=== PATIENT | female | born 1960 | race Caucasian/White ===

== ENCOUNTER 2017-09-17 17:22 | Inpatient (IN) | payer MEDICARE ==
[~2017-09-17] VITALS: Ht 165.1 cm; Wt 156.0 kg
--- NOTE | ~2017-09-17 | PROC ---
[address] [address] PROCEDURE REPORT Name: SAMI MARCELO Room: [address] IN .R.#: [id number] Admission: 09/17/17 Attend Phys: Fide Palma Discharge: Date of : 56 Report #: [id number] THIS REPORT FOR: //name// See perceptive 7 content for GI report. By: [id number] Records Staff JESSE /STACEY
[~2017-09-17 17:22] MED LIST: ACCUNEB SO1.25 MG/1 INH; ACCUNEB0.63 MG/3 IH; ALBUTEROL INH; ALBUTEROL2.5 MG/3 M INH; ALTACE5 M1 PO; ASPIRIN325 PO; ATIVAN1 MG PO; CARVEDILOL3.125 MG PO; CENTRUM SILVER1 EAC4 PO; CIPRO250 M1 PO; COLCHICINE0.6 MG PO; COUMADIN 4 MG TA4 M1 PO; DIFICID200 MG PO; DILAUDID2 MG; DILTIAZEM 24HR240 MG PO; DILTIAZEM ER180 M1 PO; DILTIAZEM ER240 M1 PO; DOXYCYCLINE 10100 M1 PO; DOXYCYCLINE 10100 MG PO; EFFEXOR XR75 MG PO; ELIQUIS5 MG PO; ESTRACE0.5 MG PO; ESTRACE1 MG PO; FAMCYCLOVIR 50500 M1 PO; FLEXERIL PO; FLOVENT HFA 1110 MCG INH; FUROSEMIDE 40 M40 MG PO; HYDROCODON-ACE1 EAC5 PO; K-DUR 20 MEQ T20 MEQ PO; LANOXIN 0.120.125 M1 PO; LANOXIN 0.250.25 M1 PO; LASIX 20 MG TAB20 MG PO; LASIX 40 MG TAB40 M1 PO; LASIX 40 MG TAB40 M2 PO; LEVAQUIN PO; LEVSIN0.125 MG PO; LIDOCAINE 22 %/30 GM TOP; LIDOCAINE35.44 GM TOP; LIDODERM 5%1 PATC1 TRANSDERM; LOPERAMIDE 2 MG2 M1 PO; METHADONE HCL5 MG PO; METOLAZONE 5 MG5 M1 PO; METOLAZONE 5 MG5 MG PO; METOLAZONE10 MG PO; MINOCIN100 MG PO; MIRALAX17 GM PO; MUCINEX DM TABL1 TA1 PO; MUCINEX TA600 MG/TA2 PO; MUCINEX600 MG PO; MULTIGEN CAPLET1 CAP PO; MULTIVITAMINS PO; MULTIVITAMINS1 EAC7 PO; NORCO 10-325 T1 EACH PO; NYSTATIN 100,0015 G1; NYSTATIN 1100000 U/M SW&SWALLOW; NYSTATIN-TRIAMC15 GM TOP; NYSTATIN1 EA10 TOP; NYSTATIN1 EAC9; OMEPRAZOLE20 MG PO; ONDANSETRON HCL4 M2 PO; OXYCONTIN10 M1 PO; OXYCONTIN60 MG PO; PACERONE 200 M200 M1 PO; PAXIL10 MG; PERCOCET 10-321 EACH PO; PERCOCET 5-3251 EACH; PERCOCET PO; POTASSIUM20 PO; PREDNISONE 10 M10 MG PO; PREDNISONE 20 M20 M1 PO; PREDNISONE 20 M20 MG PO; PRILOSEC40 MG PO; PROAIR HFA8.5 GM INH; PROBIOTIC250 MG PO; PSYLLIUM PO; QVAR HFA 440 MCG/UN1 INH; QVAR HFA 880 MCG/UN1 INH; QVAR8.7 G1 INH; RESTORIL15 MG PO; RESTORIL7.5 MG PO; ROXICODONE5 M2 PO; ROXICODONE5 MG PO; SIMVASTATIN40 MG PO; SINGULAIR 10 MG10 M1 PO; SOTALOL 120 MG120 M1 PO; SPIRIVA INH; SYMBICORT160 MCG/4. INH; TIKOSYN.25 PO; TRAMADOL 50 MG50 MG PO; TRANSDERM-SCO1 PATCH TD; TRINATE TABLET1 TAB PO; VANCOMYCIN HCL 11 G2 IV; VANCOMYCIN HCL250 MG PO; VENTOLIN HFA 1818 GM INH; VICODIN 5-5001 EACH PO; VICODIN PO; VITAMIN D 5050000 I1 PO; VIVELLE-DOT1 EAC1 TOP; VIVELLE1 EAC1 TRANSDERM; XARELTO20 MG PO; XOPENEX 1.25 MG/3 M1 IH; XOPENEX CO1.25 MG/0. INH; XOPENEX0.63 MG/3 IH; XOPENEX1.25 MG/3 INH; XYLOCAINE TOP; ZOFRAN ODT4 MG PO; ZYRTEC 10 MG TA10 MG PO; ZYRTEC10 M2 PO; ZYRTEC10 M4 PO; [UNRECOGNIZED DRUG - OTHER] TRANSDERM
--- NOTE | 2017-09-17 17:50 | NUR ---
Jenny MCKEON AT BEDSIDE TO DRAW ABG.
[2017-09-17 17:51] LABS: HEMATOCRIT 42.1 % (37.0-47.0); HEMOGLOBIN 13.1 gm/dL (12.0-15.0); MCH 25.7 pg (26.0-34.0); MCV 82.7 fL (80.0-100.0); NUCLEATED RBCS 0 /100WBC; PLATELET COUNT* 276 thou/uL (150-400); RBC 5.09 mil/uL (4.20-5.00); WBC 25.5 thou/uL (4.0-11.0)
[2017-09-17 17:55] LABS: BE -3.8 mmol/L (-2 to +3); HCO3 20.4 mmol/L (22.0-26.0); PCO2 34.6 mmHg (35.0-45.0); PO2 91.3 mmHg (75.0-100.0); pH 7.388 (7.340-7.450)
[2017-09-17 17:59] LABS: INR 1.2; PROTIME 11.8 Seconds (9.20-11.50)
[2017-09-17 18:13] LABS: CALCIUM 8.3 mg/dL (8.5-10.1); CREATININE 3.3 mg/dL (0.6-1.3); POTASSIUM 4.4 mmol/L (3.5-5.1)
[2017-09-17 18:19] LABS: ACETAMINOPHEN 5 ug/mL (10-30); ALCOHOL < 10 mg/dL (<10); SALICYLATE < 2.8 mg/dL (2.8-20.0)
--- NOTE | 2017-09-17 18:20 | NUR ---
R.TBrian AT BEDSIDE FOR NEBULIZER TREATMENT
[2017-09-17 18:23] LABS: ABSOLUTE EOSINOPHILS 0.5 thou/uL (0.0-0.7); ABSOLUTE LYMPHOCYTES 0.8 thou/uL (0.8-5.3); ABSOLUTE MONOCYTES 0.5 thou/uL (0.0-1.2); ABSOLUTE NEUTROPHILS 23.7 thou/uL (1.6-8.1); ALBUMIN 2.8 g/dL (3.4-5.0); TOTAL BILIRUBIN 1.1 mg/dL (<0.1-1.0); TOTAL PROTEIN 6.2 g/dL (6.4-8.2)
[2017-09-17 18:24] LABS: PLATELET ESTIMATE ADEQUATE
[2017-09-17 18:25] LABS: TROPONIN-I LEVEL 3.44 ng/mL (<0.06)
[2017-09-17 19:39] VITALS: BP 119/54
[2017-09-17 20:00] VITALS: BP 117/78
[2017-09-17 20:01] LABS: URINE BLOOD NEGATIVE (Negative); URINE COLOR YELLOW; URINE GLUCOSE-RANDOM NEGATIVE (Negative); URINE KETONES TRACE (Negative); URINE LEUKOCYTES-REFLEX 1+ (Negative); URINE NITRITE-REFLEX NEGATIVE (Negative); URINE PROTEIN 2+ (Negative); URINE SPECIFIC GRAVITY >= 1.030 (1.005-1.030); URINE UROBILINOGEN 0.2 E.U./dl (0.2-1.0)
[2017-09-17 20:02] LABS: ICTOTEST (BILI CONFIRMATORY) Negative (Negative); URINE BILIRUBIN 1+ (Negative); URINE CLARITY HAZY
[2017-09-17 20:03] LABS: AMORPHOUS URATES Few /LPF (None Seen); CASTS None Seen /LPF (None Seen); MUCUS 0-3 Light strn/LPF (None Seen); SQUAMOUS >10 Many /LPF (0-3); URINE RBC None Seen /HPF (0-2); URINE WBC-REFLEX 0-5 Rare /HPF (0-5)
[2017-09-17 20:10] LABS: AMP/METHAMP Negative (Negative); BARBITURATES Negative (Negative); BENZODIAZEPINES Negative (Negative); COCAINE Negative (Negative); METHADONE Negative (Negative); OPIATES POSITIVE (Negative); PCP Negative (Negative); THC Negative (Negative)
[2017-09-17 20:16] LABS: MAGNESIUM 1.5 mg/dL (1.8-2.4); PHOSPHORUS* 5.2 mg/dL (2.5-4.9)
[2017-09-17 21:00] VITALS: BP 126/75
[2017-09-17 22:00] VITALS: BP 126/58
--- NOTE | 2017-09-17 22:00 | NUR ---
PT. ADMITTED TO BED 7 AT 1930, DIAGNOSIS SEPSIS/CELLULITIS. PT. RESTLESS. SEE FULL ASSESSMENT. 3L O2 ON ADMISSION. RIGHT CHEST PORT A CATH. V-PACED. INFORMATION OBTAINED FROM SPOUSE. WILL CONTINUE TO MONITOR.
[2017-09-17 23:00] VITALS: BP 100/54
[2017-09-18] VITALS (18 sets, daily range): BP systolic 94–146; BP diastolic 33–80
[2017-09-18 04:18] LABS: HEMATOCRIT 36.8 % (37.0-47.0); HEMOGLOBIN 11.2 gm/dL (12.0-15.0); MCH 25.5 pg (26.0-34.0); MCHC 30.5 g/dL (28.0-37.0); MCV 83.6 fL (80.0-100.0); RBC 4.4 mil/uL (4.20-5.00); RDW-CV 17.2 % (10.5-14.5); WBC 22.7 thou/uL (4.0-11.0)
--- NOTE | 2017-09-18 04:52 | NUR ---
PT. HAS BEEN RESTLESS THROUGHOUT THE NIGHT, PULLING OFF LEADS, SALOMON NEEDLE BENT DUE TO PT. PULLING, RESTLESS. PT. PULLING ON SANCHEZ CATHETER. ORDER FOR RESTRAINTS OBTAINED, SOFT WRIST BILAT RESTRAINTS APPLIED. PT. IS ORIENTED TO PERSON, PLACE, SITUATION. 2L O2. V-PACED. OLIGURIA. WILL CONTINUE TO MONITOR.
[2017-09-18 07:54] LABS: ABSOLUTE BASOPHILS 0.1 thou/uL (0.0-0.2); ABSOLUTE EOSINOPHILS 0.1 thou/uL (0.0-0.7); ABSOLUTE LYMPHOCYTES 0.7 thou/uL (0.8-5.3); ABSOLUTE MONOCYTES 0.6 thou/uL (0.0-1.2); ABSOLUTE NEUTROPHILS 18.3 thou/uL (1.6-8.1); BASOPHILS 0.5 %; EOSINOPHILS 0.6 %; HEMATOCRIT 35.8 % (37.0-47.0); HEMOGLOBIN 11.1 gm/dL (12.0-15.0); LYMPHOCYTES 3.7 %; MCH 25.6 pg (26.0-34.0); MCHC 31.1 g/dL (28.0-37.0); MCV 82.6 fL (80.0-100.0); MONOCYTES 2.9 %; MPV 7.6 fl. (7.2-11.1); NUCLEATED RBCS 0 /100WBC; PLATELET COUNT* 216 thou/uL (150-400); POLYS 92.3 %; RBC 4.34 mil/uL (4.20-5.00); RDW-CV 17.2 % (10.5-14.5); WBC 19.8 thou/uL (4.0-11.0)
[2017-09-18 08:13] LABS: BE -4.1 mmol/L (-2 to +3); HCO3 20.2 mmol/L (22.0-26.0); PCO2 34.6 mmHg (35.0-45.0); PO2 87.8 mmHg (75.0-100.0); pH 7.384 (7.340-7.450)
--- NOTE | 2017-09-18 08:25 | NUR ---
VANCOMYCIN PHARMACY TO MANAGE: PATIENT IS BEING TREATED FOR CELLULITIS AND SEPSIS. VE=942.6 KG, WBC=19.8, SCR=3.3, ADJUSTED CRCL= 29.5, TEMP= 37.6. PATIENT RECEIVED VANCOMYCIN 1.25 G IV ONETIME FROM ID 09/17. A MAINTENANCE DOSE WILL BEGIN TODAY OF VANCOMYCIN 500 MG IV Q12H WITH A TROUGH GOAL OF 15-20 MCG/ML. A TROUGH WAS ORDERED FOR 09/19 AT 0900. PHARMACY WILL CONTINUE TO FOLLOW AND MONITOR.
[2017-09-18 08:48] LABS: CHOLESTEROL 75 mg/dL (<200); DIRECT BILIRUBIN 0.8 mg/dL (<0.1-0.3); HDL CHOLESTEROL 17 mg/dL (>40); LDL CHOLESTEROL 7 mg/dL (<100); SERUM ASSESSMENT Clear; TC:HDL 4.4 Ratio (Not establshd); TOTAL BILIRUBIN 1.5 mg/dL (<0.1-1.0); TRIGLYCERIDE 255 mg/dL (<150); VLDL 51 mg/dL (<40)
--- NOTE | 2017-09-18 11:31 | CON ---
[address] [address] CONSULTATION Name: SAMI MARCELO Room: [address] IN M.R.#: [id number] Admission: 09/17/17 Attend Phys: Fide Palma Discharge: Date of : 56 Report #: [id number] THIS REPORT FOR: //name// CC: MARYANA physician/PCP Seth Reveles DATE OF SERVICE: 09/18/2017 INFECTIOUS DISEASE CONSULTATION ATTENDING PHYSICIAN: Bin Shelton M.D. REASON FOR EVALUATION: Sepsis, left lower extremity cellulitis and profound encephalopathy. HISTORY OF PRESENT ILLNESS: Chart reviewed, the patient examined. This is a 56-year-old woman, who I am well familiar with, who has had extensive medical history including some unclear diagnosis, perhaps Familial Mediterranean Fever, who has ongoing issues with inflammatory eruptions, often with the lower extremities and chronic abdominal-related pain, who I had not seen in several months. She was apparently noting, over the course of last 24-48 hours, progressive weakness including falling, complaining of left lower extremity pain and swelling. She has not had nausea or emesis, was found to have low-grade temperature elevations on admission. Imaging was otherwise unremarkable. Lactic acidemia of 7.6, repeat more recently was 4.3. She is unable to give any history. She, in fact, does not recognize me, which is quite unusual. She is moaning. It is not clear that she has any orientation at all. She is not overtly hemodynamically unstable at this point. She has been started empirically on combination therapy with ceftriaxone and vancomycin, both IV and oral. ALLERGIES: LISTED TO PENICILLIN, SULFA, GABAPENTIN AND PROMETHAZINE. CURRENT MEDICATIONS: Include hydrocortisone, aspirin, Ipratropium/albuterol inhaler, vancomycin, hyoscyamine, ergocalciferol, apixaban, Montelukast, ceftriaxone, fentanyl, vancomycin orally, pantoprazole and hydrocodone. 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 SOCIAL HISTORY: Nonsmoker, no ethanol. FAMILY HISTORY: [place] [address] CONSULTATION Name: SAMI MARCELO Room: [address]#: [id number] Admission: 09/17/17 Attend Phys: Fide Palma Discharge: Date of : 56 Report #: [id number] REVIEW OF SYSTEMS: As above. PHYSICAL EXAMINATION: GENERAL: She is markedly distressed. She is moaning. She is not able to be redirected, not clear if she recognizes me. VITAL SIGNS: Temperature 99.2, pulse 70, respirations 18 and blood pressure 124/52. Weight is 365 pounds. SKIN: Warm, multiple areas of contused and scarring, particularly of the lower extremities. NECK: Seemingly supple. LUNGS: She is tachypneic. Diminished breath sounds overall. HEART: Regular, soft systolic murmur. ABDOMEN: Soft. There are no overt peritoneal signs. Left lower extremity has moderate inflammatory changes noted distal below the knee. It is warm to touch, relative to the right side. GENITOURINARY: Deferred. RECTAL: Deferred. LABORATORY DATA: TSH of 3.056. of 663. Total bilirubin 1.5 with a direct of 0.5. Blood cultures sterile thus far. ABGs: pH of 7.384, pCO2 of 34.6 and pO2 of 87.8 on 2 liters. Lactic acid most recently is 4.3. CBC: White count of 19.8, initially was 25.5; H and H 11.1 and 35.8 and platelets of 216,000. Drug screen was positive for opiates and I think these are prescribed. Urinalysis 0-5 white cells. Chest x-ray: Mild medial basilar atelectasis. CT abdomen and pelvis, no evident inflammatory process, change in the central uterus and possible right adnexal cysts. CT of the head, no acute abnormalities. Estimated GFR of 14. Sodium 138, potassium 4.4, chloride 98, bicarbonate is 23, anion gap of 17 and BUN and creatinine 23 and 3.3. Albumin 2.8. Total protein 6.2. ASSESSMENT AND PLAN: Left lower extremity inflammatory eruptions with clinical multiorgan dysfunction including profound encephalopathy as well as renal dysfunction. We will continue empiric antimicrobial therapy. I would presume there is a component of infectious etiology at this point, leukocytosis or low-grade temperature elevations. Certainly, she remains tenuous. Continue to monitor expectantly. <ELECTRONICALLY SIGNED> By: Jorge Leyv MD 09/18/17 1131 1001 [id number] Levy MD /nt
[2017-09-18 11:40] LABS: CALCIUM 7.5 mg/dL (8.5-10.1); POTASSIUM 4.5 mmol/L (3.5-5.1)
[2017-09-18 11:43] LABS: CREATININE 4.4 mg/dL (0.6-1.3)
--- NOTE | 2017-09-18 11:58 | NUR ---
Per nurse, Pt has been agitated today, last evening Pt was in restraints d/t pulling at her lines. Nurse asked that CM assess Pt later. Per nurse, Pt is non ambulatory, wc bound. Resides at home with her . CM to assess later.
[2017-09-18 12:30] LABS: CALCIUM 7.3 mg/dL (8.5-10.1); CREATININE 4.6 mg/dL (0.6-1.3); POTASSIUM 4.6 mmol/L (3.5-5.1)
--- NOTE | 2017-09-18 14:26 | 2DMMODE ---
[place] [address] 2 D/M-MODE ECHOCARDIOGRAM Name: SAMI MARCELO Room: [address] ADM IN [facility]#: [id number] Admission: 09/17/17 Attend Phys: Seth Reveles Discharge: Date of : 56 Date of Service: 09/18/17 1426 Report #: [id number] THIS REPORT FOR: //name// APPROVED REPORT Study performed: 09/18/2017 10:06:21 EXAM: Comprehensive 2D, Doppler, and color-flow Echocardiogram Patient Location: In-Patient Room #: [facility] Status: routine BSA: 2.55 HR: 70 bpm BP: 124/52 mmHg Rhythm: NSR Other Information Study Quality: Good Indications Sepsis Elevated Troponin 2D Dimensions LVEF(%): 72.98 (>50%) IVSd: 11.95 (7-11mm) LVOT Diam: 19.85 (18-24mm) LVDd: 55.84 mm PWd: 11.21 (7-11mm) Ascending Ao: 35.13 (22-36mm) LVDs: 32.09 (25-40mm) Aortic Root: 32.96 mm Hess's LVEF: 72.98 % Volumes Left Atrial Volume (Systole) LA ESV Index: 26.30 mL/m2 Aortic Valve AoV Peak Capo.: 2.54 m/s AO Peak Gr.: 25.73 mmHg LVOT Max P.04 mmHg AO Mean Gr.: 15.16 mmHg LVOT Mean P.79 mmHg LVOT Max V: 1.50 m/s AO V2 VTI: 35.96 cm LVOT Mean V: 1.02 m/s CARMEN (VTI): 1.79 cm2 LVOT V1 VTI: 20.77 [place] [address] 2 D/M-MODE ECHOCARDIOGRAM Name: SAMI MARCELO Room: [address] IN ..#: [id number] Admission: 09/17/17 Attend Phys: Seth Reveles Discharge: Date of : 56 Date of Service: 09/18/17 1426 Report #: [id number] E/A Ratio: 2.97 MV Decel. Time: 295.33 ms MV E Max Capo.: 1.05 m/s MV PHT: 85.65 ms MVA (PHT): 2.57 cm2 TDI E/Lateral E': 9.55 E/Medial E': 10.50 Medial E' Capo.: 0.10 m/s Lateral E' Capo.: 0.11 m/s Pulmonary Valve PV Peak Capo.: 1.47 m/s PV Peak Gr.: 8.64 mmHg Tricuspid Valve TR Peak Gr.: 25.77 mmHg RVSP: 30.00 mmHg Left Ventricle The left ventricle is normal size. There is normal LV segmental wall motion. There is normal left ventricular wall thickness. Left ventricular systolic function is normal. The left ventricular ejection fraction is within the normal range. LVEF is 60%. This study is not technically sufficient to allow evaluation of the LV diastolic function. Right Ventricle The right ventricle is normal size. The right ventricular systolic function is normal. Pacemaker lead is present in the right ventricle. Atria The left atrium size is normal. The right atrium size is normal. Aortic Valve Mild aortic valve sclerosis. No aortic regurgitation is present. There is no aortic valvular stenosis. Mitral Valve The mitral valve is normal in structure. Trace mitral regurgitation. No evidence of mitral valve stenosis. Tricuspid Valve The tricuspid valve is normal in structure. Mild tricuspid regurgitation. The RVSP is 30-35 [place] [address] 2 D/M-MODE ECHOCARDIOGRAM Name: SAMI MARCELO Room: [address]#: [id number] Admission: 09/17/17 Attend Phys: Seth Reveles Discharge: Date of : 56 Date of Service: 09/18/17 1426 Report #: [id number] The pulmonary valve is normal in structure. There is no pulmonic valvular regurgitation. Great Vessels The aortic root is normal in size. IVC is normal in size and collapses with >50% inspiration Pericardium There is no pericardial effusion. <Conclusion> The left ventricle is normal size. There is normal left ventricular wall thickness. Left ventricular systolic function is normal. The left ventricular ejection fraction is within the normal range. LVEF is 60%. The right ventricle is normal size. The left atrium size is normal. Mild aortic valve sclerosis. No aortic regurgitation is present. There is no aortic valvular stenosis. The mitral valve is normal in structure. Trace mitral regurgitation. The tricuspid valve is normal in structure. Mild tricuspid regurgitation. The RVSP is 30-35 mmHg. IVC is normal in size and collapses with >50% inspiration There is no pericardial effusion. There is normal LV segmental wall motion. <ELECTRONICALLY SIGNED> By: Isreal Laboy MD, FACC 09/18/17 1426 1426 1426 Isreal Laboy MD, FACC /INF
--- NOTE | 2017-09-18 15:45 | NUR ---
WOUND CARE NOTE: CONSULT RECEIVED FOR CELLULITIS/OPEN WOUND ON LEFT LOWER EXTREMITY. PATIENT PRESENTS WITH WHAT APPEARS TO BE CELLULITIS TO THE LEFT LOWER LEG. CALF MEASURES 60CM. LEG IS EDEMATOUS, RED, AND ECCHYMOTIC. THERE IS AN OPEN WOUND TO THE MEDIAL LEFT LEG MEASURING 1X2.8X0.1. PARTIAL THICKNESS WOUND THAT IS PINK, MOIST. ECCHYMOSIS TO BANDAR-WOUND, MAY HAVE BEEN A BLISTER AT ONE POINT. WOUND CLEANSED WITH WOUND CLEANSER, PATTED DRY. APPLIED OPTIFOAM AG AND SECURED WITH ROLL GAUZE. PALPABLE PEDAL PULSES. PATIENT DOES HAVE PAIN UPON PALPATION TO THE LEFT LEG. RIGHT LEG APPEARS RED WITH ECCHYMOSIS TOO. CALF MEASURES 59CM, NO PAIN UPON PALPATION. PALPABLE PEDAL PULSES APPEARS TO HAVE RASH TO BILATERAL UPPER EXTREMITIES TOO. EDUCATED PATIENT'S ON DRESSING ORDERS, PATIENT UNABLE TO COMPREHEND AT THIS TIME, COMMUNICTED UNDERSTANDING. BARIATRIC BED ORDERED, PATIENT UNABLE TO TURN APPROPRIATELY. RECOMMEND ELEVATE BILATERAL HEELS OFF BED TURN Q2 HOURS ENCOURAGE GOOD NUTRITION/HYDRATION POSSIBLE COMPRESSION ONCE ABLE TO TOLERATE.
--- NOTE | 2017-09-18 18:43 | NUR ---
PT'S TEMPORARY DIALYSIS CATHETER INSERTED AT THE BEDSIDE. ORDER RECEIVED OK TO USE. DIALYSIS SCHEDULED FOR 2 HOURS TONIGHT AND THEN AGAIN FOR THE MORNING. PT'S VSS THROUGHOUT THE DAY. ASSESSMENT CHARTED. PT VERY RESTLESS THROUGHOUT THE DAY. SHE DID GET SOME REST LATE THIS AFTERNOON BUT OTHERWISE DIDN'T SLEEP MUCH TODAY. Q2H TURNS THROUGHOUT THE DAY. WOUND CARE NURSE VISITED AND DRESSED LLE. ORDERS IN CHART REGARDING WOUND CARE INSTRUCTIONS.
[2017-09-19] VITALS (12 sets, daily range): BP systolic 127–1158; BP diastolic 66–100
[2017-09-19 04:33] LABS: ABSOLUTE LYMPHOCYTES 0.3 thou/uL (0.8-5.3); ABSOLUTE MONOCYTES 0.6 thou/uL (0.0-1.2); ABSOLUTE NEUTROPHILS 16.7 thou/uL (1.6-8.1); BASOPHILS 0.2 %; HEMATOCRIT 36.3 % (37.0-47.0); HEMOGLOBIN 11.1 gm/dL (12.0-15.0); LYMPHOCYTES 1.7 %; MCH 25.6 pg (26.0-34.0); MCHC 30.7 g/dL (28.0-37.0); MCV 83.4 fL (80.0-100.0); MONOCYTES 3.4 %; MPV 7.8 fl. (7.2-11.1); NUCLEATED RBCS 0 /100WBC; PLATELET COUNT* 211 thou/uL (150-400); POLYS 94.7 %; RBC 4.35 mil/uL (4.20-5.00); RDW-CV 17.4 % (10.5-14.5); WBC 17.6 thou/uL (4.0-11.0)
[2017-09-19 05:04] LABS: ALBUMIN 2.3 g/dL (3.4-5.0); CALCIUM 7.1 mg/dL (8.5-10.1); DIRECT BILIRUBIN 0.6 mg/dL (<0.1-0.3); MAGNESIUM 2.4 mg/dL (1.8-2.4); PHOSPHORUS* 5.8 mg/dL (2.5-4.9); POTASSIUM 4.7 mmol/L (3.5-5.1)
[2017-09-19 05:05] LABS: CREATININE 2.8 mg/dL (0.6-1.3)
--- NOTE | 2017-09-19 08:03 | NUR ---
PT PROGRESSING TOWARDS GOALS. SHE WAS ABLE TO SLEEP ALL NIGHT. WAS NOT AGITATED OR RESTLESS. PT IS NOW ON BARIATRIC BED. LOST RIGHT CHEST PORT AT SHIFT CHANGE NO LONGER ACCESSIBLE. PT RECEIVED DIALYSIS LAST NIGHT ADN TOLERATED WELL NO COMPLICATIONS. HAS SCHEDUALED DIALYSIS IN AM. PT DID NOT EAT LAST NIGHT STATED SHE WAS NOT HUNGERY. WILL CONTINUE TO MONITOR PROCCED WITH ANTIMICROBIAL THERAPY.
--- NOTE | 2017-09-19 10:04 | EKG ---
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: [place] : 1960 Requested By: Flavio Voss Order Number: [id number] MD: Simeon Aguilar Measurements Intervals [place] Rate: 70 P: 0 DE: 28 QRS: -76 QRSD: 133 T: 85 QT: 432 QTc: 467 Interpretive Statements Ventricular-paced complexes No further analysis attempted due to paced rhythm Compared to ECG 11/16/2015 10:54:54 No significant changes Electronically Signed On 09-19-2017 10:04:19 PLATFORM MATERIAL HANDLING SUPERVISOR by Simeon Aguilar [email or web address] <ELECTRONICALLY SIGNED> By: Simeon Aguilar MD, FACC 09/19/17 1004 174 174 Simeon Aguilar MD, FAC /EPI
--- NOTE | 2017-09-19 10:38 | NUR ---
VANCOMYCIN PHARMACY TO MANAGE: PATIENT IS BEING TREATED FOR SEPSIS AND CELLULITIS OF LEFT LEG. WBC=17.6, SCR=2.8, CRCL=34.7 (NOW ON DIALYSIS), TEMP=37.1. PATIENT HAS BEEN RECEIVING VANCOMYCIN 500 MG IV BID WITH A TROUGH GOAL OF 15-20 MCG/ML. A TROUGH WAS DRAWN TODAY HOWEVER DIALYSIS HAS BEEN STARTED ON THE PATIENT THIS MORNING AND THE TROUGH DRAWN DURING THAT TIME (LEVEL OF 11 MCG/ML). DOSING WILL BE CHANGED TO DIALYSIS DOSING OF VANCOMYCIN 500 MG IV AFTER DIALYSIS. A LEVEL IS ORDERED FOR 09/22/17 AT 0800. PHARMACY WILL CONTINUE TO FOLLOW AND MONITOR.
--- NOTE | 2017-09-19 10:38 | NUR ---
PATIENT CARE ASSUMED AT 0700. PATIENT AWAKE UPON ENTERING ROOM. ORIENTED X2, BUT STILL SLIGHTLY CONFUSED ABOUT SITUATION. ABLE TO REPEAT NURSES NAME UPON REENTERING ROOM. RATES PAIN IN LEGS AT A 7, BUT DENIES NEEDS FOR MEDICATION AT THIS TIME. REPOSITIONED. DIALYSIS IN ROOM THIS MORNING. PROBLEMS WITH MACHINE, SO IT STARTED LATER THAN ORDERED. DIALYZYING NOW. 500 CC URINE OUTPUT IN CATHETER. AMALIA/CLEAR. LOWER EXTREMITIES ELEVATED ON PILLOW. REATTEMPTED ACCESS OF PATIENT'S RIGHT PORTACATH THIS MORNING, BUT STILL UNABLE WITH MULTIPLE NURSES. HOSPITALIST NOTIFIED. IR CONSULT ENTERED. LUNCH HELD UNTIL DIALYSIS COMPLETED. BLOOD SUGAR 165. INSULIN HELD. PATIENT DENIES FURTHER NEEDS FROM NURSING. WILL CONTINUE WITH CURRENT PLAN OF CARE.
--- NOTE | 2017-09-19 14:44 | NUR ---
Temporary dialysis cath placed yesterday, Pt had dialysis last evening. Plan dialysis again today. Renal following.
--- NOTE | 2017-09-19 18:31 | NUR ---
PATIENT PROGRESSING TOWARDS GOALS. COMPLETED SECOND ROUND OF DIALYSIS TODAY. ONE LITER REMOVED. PATIENT TOLERATED IT WELL. STILL REMAINS SLIGHTLY CONFUSED. ORIENTED TO PERSON AND PLACE, BUT REPEATEDLY ASKS THE SAME QUESTIONS. IN THE AFTERNOON, PATIENT READ WHITEBOARD IN ROOM AND SAID "DIALYSIS" INFORMED THAT PATIENT WAS ON DIALYSIS THIS MORNING. SHE DID NOT REMEMBER. VITALS REMAINED STABLE THROUGHOUT SHIFT. V-PACED ON PRODUCTION ASSISTANT. DESATURATES AT TIMES WHILE SLEEPING. PATIENT HAS SLEEP APNEA PER . ON 2L WHILE SLEEPING. 400 ML URINE PRIOR TO DIALYSIS. VERY LITTLE AFTER, BUT EXPECTED. URINE DARK AMALIA WITH SMALL CLOTS. NO BOWEL MOVEMENTS THIS SHIFT. POOR APPETITE. REFUSED FOOD THROUGHOUT SHIFT. DID DRINK A COUPLE CONTAINERS OF APPLEJUICE. BLOOD SUGARS FROM 120-179. ON PO VANC FOR PROPHYLAXIS. BARIATRIC BED IN PLACE. PATIENT TURNED Q2 HOURS. SKIN REMAINS INTACT. DRESSING REMAINS C/D/I TO LEFT BERNARD.
--- NOTE | 2017-09-19 18:50 | NUR ---
vss, assumed care of pt from icu, ASSESSMENT PERFORMED, I AGREE WITH ICU ASSESSMENT FINDINGS, PT IS SLEEPING IN BED ON 2L NC AND ON BED REST, WITH SANCHEZ IN PLACE WITH BLOOD TINGED URIN. PT DENIES ANY PAIN AT THIS TIME. WILL FOLLOW WITH PLAN OF CARE. PT IS V-PACED ON THE MONITOR,
[2017-09-19 22:07] LABS: HEPATITIS B SURFACE AG Negative (Negative)
[2017-09-20] VITALS: BP 131/82
[2017-09-20 04:08] VITALS: BP 143/84
[2017-09-20 04:58] LABS: CALCIUM 7.6 mg/dL (8.5-10.1); POTASSIUM 4.2 mmol/L (3.5-5.1)
[2017-09-20 05:05] LABS: CREATININE 1.7 mg/dL (0.6-1.3)
--- NOTE | 2017-09-20 07:30 | NUR ---
PATIENT RESTED COMFORTABLY THIS SHIFT. PATIENT HAD C/O PAIN X1 RELIEVED WITH HYDROCODONE. PATIENT'S CHEST PORT NOT CURRENTLY BEING USED DUE TO INABILITY TO DRAW BACK BLOOD. IVF INFUSING TO LEFT HAND. PATIENT WORE HOME CPAP THROUGHOUT NIGHT. CALL LIGHT WITHIN REACH. REPORT GIVEN TO ONCOMING JESÚS
[2017-09-20 09:00] VITALS: BP 148/107
--- NOTE | 2017-09-20 10:45 | CON ---
[address] [address] CONSULTATION Name: SAMI MARCELO Room: [address] IN .R.#: [id number] Admission: 09/17/17 Attend Phys: Fide Palma Discharge: Date of : 56 Report #: [id number] THIS REPORT FOR: //name// CC: [facility] physician/PCP Seth Reveles REASON FOR CONSULTATION: Acute kidney injury. CONSULTING PHYSICIAN: Seth Reveles MD HISTORY OF PRESENT ILLNESS: The patient is a 56-year-old female who is admitted with weakness and lethargy with increasing swelling. She has been diagnosed with sepsis secondary to leg cellulitis and started on antibiotics and admitted to the ICU. She received fluid bolus. She has not required any vasopressors. She has a history of kidney disease, does not have an outpatient kidney doctor. On 06/07/2017, her creatinine was 1. She is also followed by Dr. Esteban as an outpatient and when he saw her about a month ago, she had excess fluid and was suspected to be fluid overloaded. She was on Lasix 160 mg daily. The patient herself is unable to provide any meaningful history at this time. Her is present at the bedside and helps provide historical details. REVIEW OF SYSTEMS: Constitutional, psych, heme, eyes, ENT, respiratory, cardiac, GI, , endocrine all negative except as documented above. PAST MEDICAL HISTORY: Steroid dependent asthma, history of pacemaker, dyslipidemia, atrial flutter/atrial fibrillation, history of Clostridium difficile with a fecal transplant in 03/2016 at [place], history of adnexal mass, lymphedema, avascular necrosis, partial hysterectomy. SOCIAL HISTORY: No tobacco. FAMILY HISTORY: Not pertinent in this 56-year-old female. MEDICATIONS: Reviewed. PHYSICAL EXAMINATION: VITAL SIGNS: Blood pressure is 124/52, pulse 70, respirations 18, temperature 37.3. GENERAL: Confused. EYES: Open. EARS: Externally normal. CARDIOVASCULAR: Regular rate. LUNGS: Diminished breath sounds. ABDOMEN: Obese, soft. LYMPHATICS: Bilateral lower extremity edema and lymphedema. PSYCHIATRIC: [place] [address] CONSULTATION Name: SAMI MARCELO Room: [address] IN [facility]#: [id number] Admission: 09/17/17 Attend Phys: Fide Palma Discharge: Date of : 56 Report #: [id number] LABORATORY DATA: White count 19.8, hemoglobin 11.1, platelets 216. Sodium 139, potassium 4.5, chloride 101, bicarbonate 23, BUN 32, creatinine 4.4, glucose 66, calcium 7.5. ASSESSMENT: 1. Acute kidney injury. Admission creatinine 3.3, on 06/07/2017 creatinine was 1. In the setting of sepsis and Lasix use, urinalysis, urine drug screen noticed. Salicylate, Tylenol and alcohol levels unrevealing. CT scan of the kidneys, kidneys were structurally okay. 2. Leukocytosis. 3. Elevated troponin. 4. Lactic acidosis. 5. Hypomagnesemia with a magnesium of 1.5 initially. 6. History of familial Mediterranean fever, on colchicine. 7. Sepsis secondary to left lower extremity cellulitis. 8. Lymphedema. 9. History of atrial fibrillation/atrial flutter, with an ejection fraction of 65-70% on 07/18/2016, echo with a PA pressure of 21. 10. Obstructive sleep apnea. 11. Steroid-dependent asthma. 12. Non ST elevation myocardial infarction. PLAN: 1. The patient is anuric. Creatinine has risen significantly over the past 24 hours. I discussed this in detail with the . The patient will need dialysis. He is able to proceed and informed consult was obtained to proceed with dialysis. 2. Consult Interventional Radiology for temporary dialysis catheter placement. We will plan to dialyze today and assess for daily dialysis needs. 3. On antibiotics, cautioned on vancomycin use. 4. On aspirin 325 mg a day, prefer 81 mg per day if possible. 5. Renally dose Eliquis. 6. On normal saline at 150 mL an hour. 7. Check liver functions. 8. Check CK. 9. Lower extremity Doppler ordered. The patient is critically ill, we will follow up closely. Thank you for requesting my opinion in the care and management of this patient. <ELECTRONICALLY SIGNED> By: Yasemin Haywood MD 09/20/17 1045 1201 [id number] Haywood MD /nt
[2017-09-20 11:30] VITALS: BP 130/100
[2017-09-20 12:56] LABS: BE -5.8 mmol/L (-2 to +3); HCO3 18.6 mmol/L (22.0-26.0); PCO2 32.9 mmHg (35.0-45.0); PO2 106.4 mmHg (75.0-100.0)
--- NOTE | 2017-09-20 14:41 | NUR ---
ASSUMED PT CARE AT 0700 PT IS ALERT AND ORIENTED X 3-4 PT IS ON BEDREST, PT IS A FALL RISK BED ALARM IS ON, PT SLEEPS PERIODICALLY THROUGH SHIFT, PT IS ON BEDREST IS A MAX ASSIST CAN TURN SELF PT SKIN SLIGHTLY Jaundice PT HAS PORT A CATH NO BLOOD RETURN IS ACCESSED, HAS IJ FOR DIAYSIS NEPROLOGY AND PULMONOLOGY IS CONSULTED PT IS MAKING LITTLE URINE ENCOURAGING FLUIDS PT REFUSES TO EAT WHEN STAFF IS IN ROOM PT WILL DRINK FLUIDS, PT IS AFIB ON THE MONITOR PT HAS PACEMAKER, PT TURNED Q 2 HOURS WILL CONTINUE TO TR
[2017-09-20 15:30] VITALS: BP 138/90
[2017-09-20 20:00] VITALS: BP 139/98
[2017-09-20 22:06] LABS: BETA-2-MICROGLOBULIN 4.6 mg/L (0.6-2.4); IgA 101 mg/dL (87-352); IgG 374 mg/dL (700-1600)
[2017-09-20 23:07] LABS: IgM 22 mg/dL (26-217)
[2017-09-21] VITALS (23 sets, daily range): BP systolic 91–207; BP diastolic 52–110
[2017-09-21 04:51] LABS: HEMOGLOBIN 11.5 gm/dL (12.0-15.0); MCH 25.8 pg (26.0-34.0); MCHC 30.9 g/dL (28.0-37.0); MCV 83.4 fL (80.0-100.0); MPV 8.9 fl. (7.2-11.1); RBC 4.44 mil/uL (4.20-5.00); RDW-CV 17.8 % (10.5-14.5); WBC 12.1 thou/uL (4.0-11.0)
[2017-09-21 05:17] LABS: ALBUMIN 2.1 g/dL (3.4-5.0); CALCIUM 7.8 mg/dL (8.5-10.1); CREATININE 1.9 mg/dL (0.6-1.3); MAGNESIUM 2.8 mg/dL (1.8-2.4); PHOSPHORUS* 4.5 mg/dL (2.5-4.9); POTASSIUM 5.1 mmol/L (3.5-5.1); TOTAL BILIRUBIN 1.8 mg/dL (<0.1-1.0); TROPONIN-I LEVEL 0.15 ng/mL (<0.06)
--- NOTE | 2017-09-21 05:41 | NUR ---
ASSUMED CARE OF PT AT 1900, PT DROWSY BUT AROUSABLE AND ORIENTED X4. PT TURNED AND POSITIONED Q2H OVERNIGHT BUT WOULD CHANGE HER POSTION BACK TO LLAYING ON HER RIGHT SIDE INDEPENDENTLY. PT ALSO KEPT REMOVING HER CPAP. REENFORCED THE IMPORTANCE OF BEING COMPLAINT WITH BOTH. PT DENIED ANY COMPLAINTS AND SLEPT THROUGH THE NIGHT. LAB CALLED THE UNIT WITH A CRITICAL LAB LACTIC ACID 8.[address] CALDWELL VIA THE ANSWERING SAERVICE TO NOTIFY HER AWAITING RESPONSE. WILL MONITOR.
[2017-09-21 09:27] LABS: BE -10.2 mmol/L (-2 to +3); HCO3 13.4 mmol/L (22.0-26.0); PCO2 24.4 mmHg (35.0-45.0); PO2 69.4 mmHg (75.0-100.0); pH 7.359 (7.340-7.450)
--- NOTE | 2017-09-21 10:00 | NUR ---
PT LETHARGIC AND UNABLE TO COMMUNICATE NEEDS TO STAFF. PT UNABLE TO STATE NAME OR BIRTHDATE. CRITICAL HIGH LAB LACTIC ACID REPORTED TO DR. DELANEY, WELL BP 158/109, AND DECREASED LOC. NEW ORDERS GIVEN WITH TRANSFER TO ICU. ORDERS PROCESSED AND PT TRANSFERRED TO ICU UNIT VIA BED AND NURSING STAFF.
[2017-09-21 11:19] LABS: URINE BLOOD 3+ (Negative); URINE CLARITY CLOUDY; URINE GLUCOSE-RANDOM NEGATIVE (Negative); URINE KETONES TRACE (Negative); URINE LEUKOCYTES-REFLEX TRACE (Negative); URINE PROTEIN 2+ (Negative); URINE SPECIFIC GRAVITY 1.025 (1.005-1.030)
[2017-09-21 11:31] LABS: ICTOTEST (BILI CONFIRMATORY) Positive (Negative); URINE BILIRUBIN 2+ (Negative); URINE NITRITE-REFLEX POSITIVE (Negative)
[2017-09-21 11:33] LABS: URINE COLOR AMBER
[2017-09-21 11:35] LABS: CASTS None Seen /LPF (None Seen); CRYSTALS None Seen /LPF (None Seen); SQUAMOUS 0-3 Few /LPF (0-3); URINE RBC >20 Many /HPF (0-2); URINE WBC-REFLEX 6-15 Few /HPF (0-5); YEAST-REFLEX Present (None Seen)
--- NOTE | 2017-09-21 12:10 | CON ---
[address] [address] CONSULTATION Name: SAMI MARCELO Room: [address] IN .R.#: [id number] Admission: 09/17/17 Attend Phys: Fide Palma Discharge: Date of : 56 Report #: [id number] THIS REPORT FOR: //name// CC: MARYANA physician/PCP Seth Reveles DATE OF SERVICE: 09/20/2017 REFERRING PHYSICIAN: Jose Guzman MD CHIEF COMPLAINT: Sleep apnea. HISTORY OF PRESENT ILLNESS: The patient was admitted to the hospital after sustaining a fall at home, inability to get up. She has been having quite a bit of weakness. She was brought to the Emergency Room for evaluation regarding her fall. According to the patient, she is wheelchair bound, does not ambulate and apparently while going from a chair to her bed she slipped and fell. She did not lose consciousness. She was initially admitted to the Intensive Care Unit. She had a component of encephalopathy of undetermined etiology at that time. Today, she is awake, responsive, follows commands and is in minimal to moderate amount of distress from her chronic pain syndrome. She has sleep apnea, does not know how long she has been with that condition, but has been compliant with her noninvasive positive pressure device. PAST MEDICAL HISTORY: Significant for cellulitis, familial Mediterranean fever, renal failure, morbid obesity, obstructive sleep apnea. She has an open wound in her left lower extremity above her ankle. She also has had and sustained a fall injuring her right lower leg with a significant marked defect in her anterior tibial surface from surgical intervention years ago. ALLERGIES: SHE IS ALLERGIC TO PENICILLIN, GABAPENTIN, SULFA DRUGS, PROMETHAZINE. SHE HAS RASHES, CONFUSION ASSOCIATED WITH THESE MEDICATIONS. REVIEW OF SYSTEMS: System review negative other than what is outlined above. She is not a real good historian. MEDICATIONS: Metoprolol, cefepime, vancomycin, hydrocodone for pain, DuoNeb aerosol treatments, psyllium, one aspirin a day, montelukast, fentanyl for pain. PHYSICAL EXAMINATION: VITAL SIGNS: Blood pressure 148/107, respiratory rate 22 nonlabored, pulse rate 70 and regular, temperature 98.7 degrees. Her weight is 364 pounds. GENERAL APPEARANCE: She is awake, alert. She is [place] [address] CONSULTATION Name: SAMI MARCELO Room: [address] IN [facility]#: [id number] Admission: 09/17/17 Attend Phys: Fide Palma Discharge: Date of : 56 Report #: [id number] offer information regarding her history, but is a very poor historian. HEAD: Atraumatic. EYES: Pupils are round, equal, reactive. Sclerae and conjunctivae are clear. ORAL CAVITY: Moist. No lesions. CHEST: Clear throughout. No wheezes, rales or rhonchi. CARDIOVASCULAR: Regular rhythm. EXTREMITIES: There is moderate edema. An anatomical surgical defect in her right lower extremity from prior surgical procedure. She has dressing over a wound that is open and is not draining. There is no soilage of the dressing and I did not unwrap this. She is able to move her extremities, but is extremely weak. NEUROLOGIC: Weakness throughout. IMAGING STUDIES: Chest x-ray negative for any acute infiltrates. Ultrasound of the lower extremities, there is no evidence of femoral/popliteal deep venous thrombosis. Abdominal ultrasound, hepatomegaly with fatty infiltration. Gallbladder has distention with sludge. No evidence of cholelithiasis. CT of the head on admission did not demonstrate any acute abnormalities. ASSESSMENT: 1. Obstructive sleep apnea. 2. Morbid obesity. 3. Recent fall. 4. Overall debilitation of her physical status. 5. Open wound over left lower extremity. 6. Acute kidney injury, which is improving. RECOMMENDATION: Pulmonary og[place], just simply continue with her CPAP machine. No further recommendations pulmonary [place]. We will initiate aspiration precautions. We will sign off her case and be available if needed. <ELECTRONICALLY SIGNED> By: Maxime Garcia MD 09/21/17 1210 1313 [id number] Garcia MD /nt
[2017-09-21 13:22] LABS: BE -14.4 mmol/L (-2 to +3); HCO3 13.8 mmol/L (22.0-26.0)
[2017-09-21 13:27] LABS: PO2 213.3 mmHg (75.0-100.0); pH 7.146 (7.340-7.450)
[2017-09-21 17:29] LABS: CALCIUM 8.1 mg/dL (8.5-10.1); CREATININE 2.1 mg/dL (0.6-1.3); POTASSIUM 4.9 mmol/L (3.5-5.1)
[2017-09-22] VITALS (16 sets, daily range): BP systolic 98–137; BP diastolic 56–82
[2017-09-22 04:31] LABS: HEMATOCRIT 36.3 % (37.0-47.0); HEMOGLOBIN 11.5 gm/dL (12.0-15.0); MCH 26.2 pg (26.0-34.0); MCHC 31.6 g/dL (28.0-37.0); MCV 82.9 fL (80.0-100.0); MPV 9.9 fl. (7.2-11.1); RBC 4.38 mil/uL (4.20-5.00); RDW-CV 17.1 % (10.5-14.5); WBC 9.8 thou/uL (4.0-11.0)
[2017-09-22 04:50] LABS: CALCIUM 7.8 mg/dL (8.5-10.1); CREATININE 2.2 mg/dL (0.6-1.3); MAGNESIUM 2.8 mg/dL (1.8-2.4); POTASSIUM 4.8 mmol/L (3.5-5.1); TOTAL BILIRUBIN 2.4 mg/dL (<0.1-1.0); TOTAL PROTEIN 5.6 g/dL (6.4-8.2)
[2017-09-22 07:11] LABS: PCO2 33.8 mmHg (35.0-45.0); pH 7.388 (7.340-7.450)
[2017-09-22 07:14] LABS: BE -4.1 mmol/L (-2 to +3); HCO3 19.9 mmol/L (22.0-26.0)
--- NOTE | 2017-09-22 14:24 | NUR ---
ASSUMED CARE OF PATIENT REMAINS ON VENT. VS WNL. GOOD COUGH AND GAG.
--- NOTE | 2017-09-22 18:53 | NUR ---
Patient remains on vent afebrile. Will try weaning in am per pulmonary.
[2017-09-23] VITALS (18 sets, daily range): BP systolic 129–160; BP diastolic 66–95
[2017-09-23 03:30] LABS: HEMATOCRIT 30.8 % (37.0-47.0); HEMOGLOBIN 9.9 gm/dL (12.0-15.0); MCH 26.3 pg (26.0-34.0); MCHC 32.2 g/dL (28.0-37.0); MCV 81.7 fL (80.0-100.0); MPV 10.2 fl. (7.2-11.1); NUCLEATED RBCS 13 /100WBC; PLATELET COUNT* 112 thou/uL (150-400); RBC 3.77 mil/uL (4.20-5.00); RDW-CV 16.7 % (10.5-14.5); WBC 8.7 thou/uL (4.0-11.0)
[2017-09-23 03:43] LABS: ALBUMIN 3.2 g/dL (3.4-5.0); CALCIUM 7.6 mg/dL (8.5-10.1); MAGNESIUM 2.9 mg/dL (1.8-2.4); POTASSIUM 4.3 mmol/L (3.5-5.1); TOTAL BILIRUBIN 3.4 mg/dL (<0.1-1.0); TOTAL PROTEIN 5.8 g/dL (6.4-8.2)
[2017-09-23 04:25] LABS: ABSOLUTE LYMPHOCYTES 0.8 thou/uL (0.8-5.3); ABSOLUTE MONOCYTES 0.6 thou/uL (0.0-1.2); ABSOLUTE NEUTROPHILS 7.3 thou/uL (1.6-8.1); ANISOCYTOSIS 1+; METAMYELOCYTES 3 %; MYELOCYTES 1 %; PLATELET ESTIMATE DECREASED
[2017-09-23 04:26] LABS: HYPOCHROMASIA Occasional; OVALOCYTES Occasional; POLYCHROMASIA 1+
[2017-09-23 09:17] LABS: BE -5.8 mmol/L (-2 to +3); HCO3 16.9 mmol/L (22.0-26.0); PCO2 25.3 mmHg (35.0-45.0); pH 7.443 (7.340-7.450)
[2017-09-23 10:54] LABS: % SATURATION 4 % (20-39); IRON 9 ug/dL (50-175)
--- NOTE | 2017-09-23 18:40 | NUR ---
Patient remains ON VENT BECAME TACYPNIC DURING TRIAL. SEE PROGRESS NOTES. USED BED THERAPY PERCUSSION. APPEARS COMFORTABLE AT THIS TIME.
--- NOTE | 2017-09-23 20:24 | NUR ---
RECIEVED REPORT AND ASSUMED CARE OF PT AT 1900. PT REMAINS INTUBATED AND SEDATED ON VENTILATOR. PT HAS BILATERAL SOFT WRIST RESTRAINTS TO MAINTAIN IV, OG, ET TUBE AND SANCHEZ CATHETER. ORAL CARE DONE, PT REPOSITIONED, WILL CONTINUE PLAN OF CARE.
[2017-09-24] VITALS (22 sets, daily range): BP systolic 122–197; BP diastolic 70–112
[2017-09-24 04:24] LABS: ABSOLUTE EOSINOPHILS 0.3 thou/uL (0.0-0.7); ABSOLUTE LYMPHOCYTES 0.6 thou/uL (0.8-5.3); ABSOLUTE MONOCYTES 0.3 thou/uL (0.0-1.2); ABSOLUTE NEUTROPHILS 9.2 thou/uL (1.6-8.1); BASOPHILS 0.3 %; EOSINOPHILS 2.9 %; HEMATOCRIT 29.1 % (37.0-47.0); HEMOGLOBIN 9.7 gm/dL (12.0-15.0); LYMPHOCYTES 5.6 %; MCH 27.2 pg (26.0-34.0); MCHC 33.2 g/dL (28.0-37.0); MCV 82.2 fL (80.0-100.0); MONOCYTES 3.3 %; MPV 10.4 fl. (7.2-11.1); NUCLEATED RBCS 15 /100WBC; PLATELET COUNT* 142 thou/uL (150-400); POLYS 87.9 %; RBC 3.54 mil/uL (4.20-5.00); RDW-CV 17.2 % (10.5-14.5); WBC 10.5 thou/uL (4.0-11.0)
[2017-09-24 04:43] LABS: CALCIUM 7.8 mg/dL (8.5-10.1); CREATININE 1.8 mg/dL (0.6-1.3); POTASSIUM 4.2 mmol/L (3.5-5.1)
--- NOTE | 2017-09-24 10:00 | NUR ---
PT REMAINS IN ICU, WAS INTUBATED ON 09/21 AND REMAINS ON THE VENT. NO FAMILY HERE AT THIS TIME. CASE MGT TO CONTINUE TO FOLLOW.
[2017-09-24 10:12] LABS: BE -8.5 mmol/L (-2 to +3); HCO3 17.4 mmol/L (22.0-26.0); PCO2 37.3 mmHg (35.0-45.0); PO2 69.8 mmHg (75.0-100.0)
[2017-09-24 10:13] LABS: pH 7.287 (7.340-7.450)
[2017-09-24 11:35] LABS: ALBUMIN 4.1 g/dL (3.4-5.0)
[2017-09-24 12:07] LABS: TOTAL BILIRUBIN 4.3 mg/dL (<0.1-1.0)
[2017-09-24 12:08] LABS: TOTAL PROTEIN 5.9 g/dL (6.4-8.2)
[2017-09-24 14:07] LABS: KAPPA FREE LIGHT CHAINS 10.8 mg/L (3.3-19.4); LAMBDA FREE LIGHT CHAINS 9.9 mg/L (5.7-26.3)
--- NOTE | 2017-09-24 18:23 | NUR ---
PATIENT DID NOT DO WELL IN AN ATTEMPT TO DO A TTT. MEDICATION CHANGES MADE TO HELP WAKE PATIENT UP EASIER. PATIENT HYPERTENSIVE OFF AND ON THROUGHOUT SHIFT ONCE SEDATION WAS STOPPED. PATIENT HAD VERY LARGE BOWEL MOVEMENT ON SHIFT. PATIENT DID GET UP TO GOAL ON TUBE FEEDING OF 45 BUT THEN HAD HIGH RESIDUAL SO WAS BACKED DOWN TO 30. BEDSIDE REPORT TO BE GIVEN TO ONCOMING SHIFT.
[2017-09-25] VITALS (22 sets, daily range): BP systolic 155–199; BP diastolic 78–114
[2017-09-25 02:11] LABS: IgG 396 mg/dL (700-1600)
[2017-09-25 03:24] LABS: ABSOLUTE LYMPHOCYTES 0.6 thou/uL (0.8-5.3); BASOPHILS 0.2 %; HEMATOCRIT 28.6 % (37.0-47.0); LYMPHOCYTES 4.4 %; MCHC 31.5 g/dL (28.0-37.0); MCV 82.4 fL (80.0-100.0); MONOCYTES 7.9 %; MPV 9.7 fl. (7.2-11.1); NUCLEATED RBCS 13 /100WBC; PLATELET COUNT* 154 thou/uL (150-400); POLYS 87.5 %; RBC 3.47 mil/uL (4.20-5.00); RDW-CV 17.3 % (10.5-14.5); WBC 12.6 thou/uL (4.0-11.0)
[2017-09-25 03:42] LABS: ALBUMIN 4.4 g/dL (3.4-5.0); CALCIUM 8.3 mg/dL (8.5-10.1); CREATININE 1.6 mg/dL (0.6-1.3); MAGNESIUM 3.1 mg/dL (1.8-2.4); PHOSPHORUS* 4.6 mg/dL (2.5-4.9); POTASSIUM 4.3 mmol/L (3.5-5.1); TOTAL BILIRUBIN 6.2 mg/dL (<0.1-1.0); TOTAL PROTEIN 6.5 g/dL (6.4-8.2)
--- NOTE | 2017-09-25 06:09 | NUR ---
PT REMAINS SEDATED ON VENTILATOR. FENTANYL AND VERSED IVP FOR SEDATION. PT APPEARS TO BE WELL SEDATED FOR APPROXIMATELY 30-45 MINUTES IMMEDIATELY FOLLOWING ADMINISTRATION OF EITHER MEDICATION OR BOTH TOGETHER, HOWEVER AFTER THAT PERIOD OF TIME PT BEGINS THRASHING HER HEAD AND OVERBREATHING THE VENTILATOR. SEDATION HAS BEEN ADMINISTERED FREQUENTLY IT IS ORDERED TO MAINTAIN PT COMFORT AND ADEQUATE VENTILATION. PT HAS BEEN TURNED Q30-60 MINUTES WITH USE OF BARIATRIC BED TURN ASSIST. PT WAS INCONTINENT OF LARGE LOOSE/LIQUID STOOL, COMPLETE BED BATH GIVEN AND FLEXISEAL FMS PLACED PER DR GONSALEZ. UNABLE TO ADVANCE TUBE FEED RATE BEYOND 30ML/HR RESIDUAL HAS REMAINED 80-90ML AT EACH Q4HR CHECK. ORAL CARE Q2HR, ORAL MUCOUS INFLAMED WITH BLOODY SLOUGH AT EACH SWABBING. LLE WOUND DRESSING CHANGED LATE IN THE SHIFT DUE TO SEEPING OF SEROUS DRAINAGE. URINE REMAINS DARK RED IN COLOR, SANCHEZ FLUSHED UNDER STERILE TECHNIQUE X1 TO MAINTAIN PATENCY. BP HAS REMAINED ELEVATED, DR GARCIA NOTIFIED AND PRN HYDRALOZINE ORDER CHANGED TO Q4HR, GIVEN ORDERED.
--- NOTE | 2017-09-25 07:29 | NUR ---
ASSUMED CARE OF PATIENT AFTER RECEIVING BEDSIDE REPORT. ASSESSMENT COMPLETED, VSS. BLOOD PRESSURE CONTINUES TO REMAIN HIGH. PATIENT MILDLY SEDATED BUT ARROUSES EASILY. PATIENT DOES NOT FOLLOW COMMANDS AND SHAKES HEAD BACK AND FORTH. PAIENT THRASHES AT TIMES AND REACTS TO PAINFUL STIMULI. FECAL MANAGEMENT SYSTEM IN PLACE. C-DIFF NEGATIVE. SANCHEZ CATHETER REMAINS PATENT WITH BLOOD TINGED URINE. PATIENT AFEBRILE. PATIENT REMAINS ON VENTILATOR AT THIS TIME. NATURAL REMEDY CONSULTANT IN PLACE, V-PACED RHYTHM NOTED. BED ALARM ON. CALL LIGHT WITHIN REACH. WILL CONTINUE TO MONITOR.
--- NOTE | 2017-09-25 18:09 | NUR ---
DID NOT ATTEMPT T-TUBE TRIAL TODAY, RESTARTED SEDATION. PATIENT HAD PIPIDA SCAN COMPLETED, PATIENT TOLERATED WELL. WILL MAKE PATIENT NPO AFTER MIDNIGHT FOR ABDOMINAL ULTRASOUND. PATIENT RESTING IN BED. BLOOD PRESSURE REMAINS ELEVATED DESPITE PRN MEDICATIONS AND SCHEDULED MEDICATIONS. GOOD URINE OUTPUT. WILL GIVE BEDSIDE REPORT AT SHIFT CHANGE.
[2017-09-26] VITALS (22 sets, daily range): BP systolic 142–182; BP diastolic 77–109
[2017-09-26 04:23] LABS: HEMOGLOBIN 9.5 gm/dL (12.0-15.0); MPV 9.3 fl. (7.2-11.1); WBC 11.1 thou/uL (4.0-11.0)
[2017-09-26 04:25] LABS: HEMATOCRIT 30.1 % (37.0-47.0); MCH 26.1 pg (26.0-34.0); MCHC 31.5 g/dL (28.0-37.0); MCV 82.6 fL (80.0-100.0); RBC 3.64 mil/uL (4.20-5.00)
[2017-09-26 04:41] LABS: BE -5.8 mmol/L (-2 to +3); HCO3 18.6 mmol/L (22.0-26.0); PCO2 32.6 mmHg (35.0-45.0); pH 7.374 (7.340-7.450)
[2017-09-26 04:42] LABS: PO2 136.4 mmHg (75.0-100.0)
[2017-09-26 05:12] LABS: ALBUMIN 3.9 g/dL (3.4-5.0); CALCIUM 8.5 mg/dL (8.5-10.1); CREATININE 1.4 mg/dL (0.6-1.3); MAGNESIUM 2.9 mg/dL (1.8-2.4); POTASSIUM 4.4 mmol/L (3.5-5.1); TOTAL BILIRUBIN 7.4 mg/dL (<0.1-1.0)
--- NOTE | 2017-09-26 06:38 | NUR ---
PT SEDATED ON VENTILATOR, FENTANYL AND VERSED GTTS INFUSING WITH SIGNIFICANTLY BETTER CONSISTANCY IN SEDATION EFFECT AND ABILITY TO MAINTAIN RR AT SET AC OF 14. COMLPLETE BED BATH GIVEN AND ANTIFUNGAL BARRIER CREAM APPLIED UNDER BREASTS AND PANUS THESE AREAS ARE SLIGHTLY PINK. NO SKIN BREAKDOWN OR REDNESS OVER COCCYX AREA. TUBE FEED CONTINUES AT 30ML/HR Q4HR RESIDUALS HAVE REMAINED HIGH. LLE WOUNDS CLEANSED AND REDRESSED. PT HAS BEEN TURNED Q2HR WITH USE OF ROTATION ON BARIATRIC BED WITH TURN ASSIST. BP SLIGHTLY BETTER CONTROLLED TONIGHT.
[2017-09-26 07:36] LABS: GLOBULIN TOTAL 2.6 g/dL (2.2-3.9); M-SPIKE Not Observed g/dL (Not Observed)
--- NOTE | 2017-09-26 08:11 | OP ---
[facility] [address] [place] [address] OPERATIVE REPORT Name: SAMI MARCELO Room: [address] IN [facility]#: [id number] Admission: 09/17/17 Attend Phys: Fide Palma Discharge: Date of : 56 Report #: [id number] THIS REPORT FOR: //name// CC: MARYANA physician/PCP Seth Reveles DATE OF SERVICE: 09/18/2017 PREOPERATIVE DIAGNOSIS: Acute renal failure. POSTOPERATIVE DIAGNOSIS: Acute renal failure. SURGEON: Mak Rivera DO ENVIRONMENTAL WEB CRAWLER: Alfred Hernandez ANESTHESIA: Lidocaine 1%. PROCEDURE: Left IJ temporary dialysis catheter placement under ultrasound guidance. Please see saved images. ESTIMATED BLOOD LOSS: Minimal. SPECIMEN: None. COMPLICATIONS: None. CONDITION: Stable. DISPOSITION: Remained in ICU. INDICATIONS FOR THE PROCEDURE AND CONSENT: The patient presented with cellulitis and sepsis, which worsened her chronic renal insufficiency to acute renal failure. She is in requirement of a hemodialysis per Nephrology and temporary dialysis catheter was requested. Risks and benefits were discussed with the patient including infection, bleeding, need for additional procedures including long-term dialysis access. The patient wished to proceed, was consented and scheduled. PROCEDURE IN DETAIL: After timeout was performed, the patient was placed in supine position with sterile prep and drape of the anterior neck and chest wall. Ultrasound was utilized to identify the left internal jugular vein and Seldinger technique used to place a wire after using an 18-gauge needle and aspirating nonpulsatile blood. The wire was advanced easily and a small transverse incision was made. Serial dilation performed. A 20 cm dialysis catheter was then advanced over wire. The wire was removed[place] [address] OPERATIVE REPORT Name: SAMI MARCELO Room: [address] IN [facility]#: [id number] Admission: 09/17/17 Attend Phys: Fide Palma Discharge: Date of : 56 Report #: [id number] aspirated and flushed easily. The catheter was then secured in place and sterile caps were applied. Sterile dressing was applied. The patient tolerated the procedure well. Portable chest x-ray is pending. <ELECTRONICALLY SIGNED> By: Mak Rivera DO 09/26/17 0811 1806 [id number] Rivera DO /nt
--- NOTE | 2017-09-26 08:11 | CON ---
[facility] [address] [place] [address] CONSULTATION Name: SAMI MARCELO Room: [address] IN ..#: [id number] Admission: 09/17/17 Attend Phys: Fide Palma Discharge: Date of : 56 Report #: [id number] THIS REPORT FOR: //name// CC: MARYANA physician/PCP Seth Reveles DICTATED BY: Jackie POSADAS DATE OF SERVICE: 09/18/2017 REASON FOR CONSULTATION: Temporary dialysis catheter placement. HISTORY OF PRESENT ILLNESS: The patient is a 56-year-old female who is known to our service with a history of chronic bilateral lower extremity edema with previous cellulitis as well as a large hematoma requiring evacuation and local wound care back in 2014. She presented to the Emergency Department this admission with complaints of weakness, lethargy, lower extremity edema and pain. Per her medical record, she was quite confused and agitated on admission with significant encephalopathy. She appeared to be in mild distress during my exam. She is able to answer some questions appropriately; her at the bedside provides most of her history. He feels she is somewhat more lucid today, but still quite confused. She is able to tell me who her is, that she has 3 children. She knows she is in the hospital. Per her medical records, she has had increased bilateral lower extremity edema, was followed up with Cardiology as an outpatient. She was being treated with Lasix for fluid overload. Upon admission, she was found to be in acute renal failure with a creatinine of 3.3. Her renal function has continued to decline, creatinine currently 4.6. She has been evaluated by Nephrology, is anuric, urgent hemodialysis is recommended. We have been asked to evaluate the patient for placement of a temporary dialysis catheter. PAST MEDICAL HISTORY: 1. Asthma. 2. History of C. difficile requiring fecal transplant. 3. History of atrial flutter, atrial fibrillation with RVR. 4. Congestive heart failure. 5. History of cellulitis in bilateral lower extremities. 6. Hyperlipidemia. 7. History of right lower extremity leg wound following a large hematoma evacuation. 8. Lymphedema. 9. Peripheral neuropathy. 10. Avascular necrosis. PAST SURGICAL HISTORY: 1. [place] [address] CONSULTATION Name: FOZIASAMI Fide Room: [address]#: [id number] Admission: 09/17/17 Attend Phys: Fide Palma Discharge: Date of : 56 Report #: [id number] 2. Partial hysterectomy. 3. Left shoulder nerve surgery. 4. Back surgery. 5. x 3. 6. Pacemaker placement. 7. Multiple wound debridements. 8. Port-A-Cath placement. 9. Ablation. FAMILY HISTORY: Noncontributory. SOCIAL HISTORY: She is , lives with her spouse. She is a nonsmoker. No alcohol or illicit drug use. ALLERGIES: 1. PENICILLIN. 2. SULFA. 3. GABAPENTIN. 4. PROMETHAZINE. HOME MEDICATIONS: 1. Eliquis 5 mg twice daily. 2. Zocor 40 mg daily. 3. Doxycycline 1 capsule twice daily. 4. Levsin 0.125 mg every 4 hours. 5. Imodium 2 mg as needed. 6. Singulair 10 mg daily. 7. [place] 10/325 one tablet every 4-6 hours as needed for pain. 8. Symbicort 160/4.5 two puffs by inhalation twice daily. 9. QVAR 2 puffs by inhalation twice daily. 10. Mucinex DM 1 tablet twice daily as needed for congestion. 11. Multigen caplet type 1 tablet daily. 12. ProAir HFA 2 puffs by inhalation every 30 minutes as needed for shortness of air or wheezing. 13. Lasix 40 mg twice daily. 14. Vitamin D 50,000 units on Tuesdays and Fridays. 15. AccuNeb 3 mL by inhalation every 4-6 hours. 16. Prilosec 40 mg daily. 17. Zyrtec 10 mg daily. 18. Estrace 1.5 mg at bedtime. 19. K-Dur 20 mEq 4 times daily. 20. Spiriva HandiHaler 1 capsule daily. 21. Prednisone 20 mg daily. 22. Restoril 15 mg at bedtime. 23. Metamucil 6 grams twice daily. 24. Colcrys 0.6 [place] [address] CONSULTATION Name: SAMI MARCELO Room: [address]#: [id number] Admission: 09/17/17 Attend Phys: Fide Palma Discharge: Date of : 56 Report #: [id number] REVIEW OF SYSTEMS: A full 12-point review of systems has been reviewed, but is somewhat difficult to obtain as the patient is quite lethargic and somewhat disoriented. PHYSICAL EXAMINATION: VITAL SIGNS: Temperature 37.3, heart rate 70, respiratory rate is 18, blood pressure 124/52, oxygen saturation 100% on 2 liters per nasal cannula. GENERAL: She is alert, oriented to person, knows she is in the hospital. She is in mild distress. HEENT: Head is normocephalic, atraumatic. NECK: Supple without jugular venous distention or carotid bruit. LUNGS: Decreased breath sounds throughout. HEART: Regular rate and rhythm with no murmur noted. EXTREMITIES: A 4+ edema to bilateral lower extremities. She has palpable bilateral radial, femoral and dorsalis pedis pulses. She has mild erythema to the right lower leg, severe erythema with a superficial abrasion as well as some darkened skin on the left lower leg. She also has some erythema and discoloration of her bilateral upper extremities. NEUROLOGIC: She is oriented to person, is able to move all extremities. LABORATORY DATA: Hemoglobin 11.1, hematocrit 35.8, white blood cell count 19.8, platelets 216. Sodium is 139, potassium of 4.6, chloride 102, CO2 of 22, BUN 34, creatinine 4.6, glucose . ASSESSMENT AND PLAN: 1. Acute renal insufficiency in the setting of sepsis. Nephrology is recommending the initiation of hemodialysis. We will coordinate a temporary dialysis catheter with Dr. Rivera. She will likely have to undergo some type of sedation for dialysis catheter access. 2. Sepsis. Continue IV antibiotics per Infectious Diseases. 3. History of atrial fibrillation/atrial flutter, chronically anticoagulated with Eliquis. 4. Bilateral lower extremity cellulitis. We will hold off on compression for today, will benefit from compression as her cellulitis improved some and she continues on IV antibiotic therapy. 5. Elevated troponin, Cardiology is now following. We thank you for the opportunity to participate in the care of this patient. Please feel free to contact our office with any questions or concerns. <ELECTRONICALLY SIGNED> By: Mak Rivera DO 09/26/17 0811 1548 [id number] Rivera DO /nt
--- NOTE | 2017-09-26 13:10 | NUR ---
WOUND CARE NOTE: REASSESSMENT OF LEFT LEG WOUND PROXIMAL: PARTIAL THICKNESS WOUND MEASURING 1.7X5.4X0.1, RUPUTURED BLISTER. MOIST, PINK WOUND BED. BANDAR-WOUND IS EDEMATOUS WITH REDNESS. WOUND GENTLY CLEANSED WITH WOUND CLEANSER, PATTED DRY. APPLIED OPTIFOAM AG DISTAL: FULL THICKNESS ULCERATION MEASURING 6.5X7X0.1. 80% OF WOUND BED IS RED, FRIABLE TISSUE, 20% IS WITH YELLOW ADHERENT SLOUGH. BANDAR-WOUND IS EDEMATOUS WITH REDNESS. WOUND GENTLY CLEANSED WITH WOUND CLEANSER, PATTED DRY. APPLIED OPTIFOAM AG. LATERAL/PROXIMAL: APPEARS TO BE A RUPTURED BLISTER, BUT NOW HAS A BLOOD CLOT OVER. GENTLY CLEANSED WITH WOUND CLEANSER, PATTED DRY. WOUND MEASURES 0.5X0.7. BANDAR-WOUND IS EDEMATOUS WITH REDNESS. PLACED OPTIFOAM AG LATERAL/DISTAL: APPEARS TO BE A RUPTURED BLISTER, BUT NOW HAS A BLOOD CLOT OVER. GENTLY CLEANSED WITH WOUND CLEANSER, PATTED DRY. WOUND MEASURES 1X2.5. BANDAR-WOUND IS EDEMATOUS WITH REDNESS. PLACED OPTIFOAM AG. PATIENT IS SEDATED AND ON A VENT IN ICU, NOT IN ROOM. UNABLE TO PERFORM ANY EDUCATION AT THIS TIME. RECOMMEND ELEVATE BL HEELS OFF BED CONTINUE WITH OPTIFOAM AG DRESSINGS WOULD RECOMMEND COMPRESSION ONCE MORE STABLE TURN Q2 HOURS
--- NOTE | 2017-09-26 16:59 | NUR ---
PT REMAINS NPO AWAITING U/S OF ABD.
--- NOTE | 2017-09-26 18:45 | NUR ---
U/S RESULTS CALLED TO GI, SURGERY CONSULT ORDERED/CALLED PER DR CAUSEY. DR ALVARADO CALLED WITH CONSULT UP DATED ON CT SCAN FINDINGS/ PIPPIDA SCAN RESULTS AND POSSABLE CHOLEY DRAINAGE TUBE. DR ALVARADO TO SEE PT LATER THIS EVENING. IN ROOM UPDATED ON U/S RESULTS. TUBE FEEDING RESTATED.PT TURNED THROUGH SHIFT WITH FREQUENT MOUTH CARE. PT REMAINS ON VERSED AND FENTANYL GTTS.
--- NOTE | 2017-09-26 20:11 | NUR ---
NO CHANGES SINCE PRIOR NOTE.
[2017-09-27] VITALS (23 sets, daily range): BP systolic 143–188; BP diastolic 63–97
[2017-09-27 04:16] LABS: ALBUMIN 3.7 g/dL (3.4-5.0); CALCIUM 8.8 mg/dL (8.5-10.1); CREATININE 1.3 mg/dL (0.6-1.3); HEMATOCRIT 31.9 % (37.0-47.0); MAGNESIUM 3.1 mg/dL (1.8-2.4); MCH 26.1 pg (26.0-34.0); MCHC 31.3 g/dL (28.0-37.0); MCV 83.6 fL (80.0-100.0); MPV 9.2 fl. (7.2-11.1); POTASSIUM 4.7 mmol/L (3.5-5.1); RBC 3.82 mil/uL (4.20-5.00); RDW-CV 17.8 % (10.5-14.5); TOTAL BILIRUBIN 8.8 mg/dL (<0.1-1.0); TOTAL PROTEIN 6.1 g/dL (6.4-8.2); WBC 11.7 thou/uL (4.0-11.0)
[2017-09-27 06:07] LABS: INR 1.3; PROTIME 12.2 Seconds (9.20-11.50)
--- NOTE | 2017-09-27 06:50 | NUR ---
PATIENT SEDATED, ON VENTILATOR. LAB VALUES CONTINUE TO DECLINE. SKIN WARM AND DRY, SHOWING MORE YELLOW TINT THROUGH THE NIGHT . SCLERA BECOMING VERY YELLOW. VOIDS PER CATHETER, AMALIA, 100MLS THIS SHIFT. BLOOD GLUCOSE CONTINUES TO INCREASE. CENTAL LINE PATENT, REMAINS ON VERSED AND FENTANYL PER ORDERS. OG TUBE PATENT TO FEEDING. SEVER BILATERAL EDEMA AND CELLULITIS WITH OPEN, WEEPING SORES NOTED. WOUND CARE ORDERS IN PLACE, WOUND NURSE TO DO DRESSING CHANGES.
--- NOTE | 2017-09-27 08:30 | NUR ---
IR ON PHONE WANTS TO KNOW WHEN SURGERY ROUNDS IF THEY WOULD LIKE A T TUBE PLACED.
--- NOTE | 2017-09-27 08:40 | NUR ---
DR ALVARADO ON PHONE TO CHECK ON PT, DR QUINONEZ OF IR QUESTIONS. IR TO BE CALLED.
--- NOTE | 2017-09-27 08:50 | NUR ---
IR CALLED MADE AWARE OF SURGERY WISHES FOR CHOLEY DRAINAGE TUBE, CHOLEYCYSTOGRAM AND FOR LIVER BIOPSY. PER IR NURSE PROCEDURE TO BE DONE LATER THIS AFTERNOON.
[2017-09-27 09:01] LABS: BE -3.9 mmol/L (-2 to +3); HCO3 21.4 mmol/L (22.0-26.0); PCO2 39.7 mmHg (35.0-45.0); PO2 100.4 mmHg (75.0-100.0); pH 7.349 (7.340-7.450)
--- NOTE | 2017-09-27 14:05 | NUR ---
PT TAKEN TO CT THEN TO FOLLOW THROUGH IN IR.
--- NOTE | 2017-09-27 19:56 | NUR ---
PT DOING WELL.T TUBE REMIANS PATENT FOR BLOODY DRAINAGE, 70 ML. TUBE FLUSHED WELL. PT TURNED THROUGH SHIFT. PER DR HOPKINS IVF D/C'D, TUBE FEEDING ALSO REMAINS ON HOLD TILL ASSESED IN AM. HERE THIS AFTERNOON UP DATED ON THIS AFTERNOONS PROCEDURES. FENTANYL AND VERSED GTTS REMAIN IN USE. DR ZUÑIGA ALSO STOPPED BY TO SEE PT THIS AM.PM SHIFT REPORT GIVEN.
[2017-09-28] VITALS (24 sets, daily range): BP systolic 151–191; BP diastolic 80–98
[2017-09-28 03:48] LABS: HCO3 22.2 mmol/L (22.0-26.0); PCO2 35.6 mmHg (35.0-45.0); PO2 100.6 mmHg (75.0-100.0); pH 7.413 (7.340-7.450)
[2017-09-28 06:32] LABS: ALBUMIN 3.3 g/dL (3.4-5.0); CREATININE 1.2 mg/dL (0.6-1.3); MAGNESIUM 3.1 mg/dL (1.8-2.4); POTASSIUM 4.7 mmol/L (3.5-5.1); TOTAL PROTEIN 5.6 g/dL (6.4-8.2)
[2017-09-28 06:55] LABS: HEMOGLOBIN 9.3 gm/dL (12.0-15.0); MCH 25.8 pg (26.0-34.0); MCHC 30.9 g/dL (28.0-37.0); MCV 83.5 fL (80.0-100.0); MPV 9.3 fl. (7.2-11.1); RBC 3.6 mil/uL (4.20-5.00); RDW-CV 17.2 % (10.5-14.5); WBC 11.3 thou/uL (4.0-11.0)
--- NOTE | 2017-09-28 07:19 | NUR ---
ASSUMED CARE OF PATIENT AFTER RECEIVING BEDSIDE REPORT. ASSESSMENT COMPLETED, VSS. PATIENT SEDATED ON VENTILATOR. BLOOD PRESSURE REMAINS HIGH. WILL DISCUSS REMOVING DIALYSIS CATHETER WITH VASCULAR. PATIENT EXHIBITING JAUNDICED SCLERAL EDEMA. PIG IRON LOADER REPORTS SUCCESSFUL TRIAL. TUBE FEEDING ON HOLD FOR POSSIBLE EXTUBATION. PIPE PULLER IN PLACE. BED ALARM ON. CALL LIGHT WITHIN REACH. WILL CONTINUE TO MONITOR.
[2017-09-28 13:04] LABS: DIRECT BILIRUBIN 8.6 mg/dL (<0.1-0.3)
--- NOTE | 2017-09-28 15:04 | NUR ---
PT REMAINS ON VENT. TRYING TO REDUCE SEDATION TO SEE IF PT WILL WAKE UP MORE. IR PLACED REJI TUBE YESTERDAY. NO FAMILY HERE AT THIS TIME.
--- NOTE | 2017-09-28 16:29 | S ---
[place] [address] SURGICAL PATH RPT PROCEDURE Name: MAXIMINO SOUZA Fdie Room: [address] ADM IN M.R.#: [id number] Admission: 09/17/17 Date of : 56 Discharge: Report #: [id number] Path Case #: [id number] PATHOLOGY REPORT COLLECTION DATE: 09/27/2017 RECEIVED DATE: 09/27/2017 SUBMITTING PHYS: Dr. Bin Lara OTHER PHYS: Dr. Seth Reveles SPECIMEN(S) RECEIVED: A.Liver, needle biopsy * * * * * * * * * * * * FINAL DIAGNOSIS: Liver biopsy: - Benign liver with moderate steatosis, and centrilobular necrosis and fresh hemorrhage characteristic of hypoperfusion. (see comment) COMMENT: The biopsies reveal generous cores of benign liver tissue which show prominent centrolobular necrosis, moderate steatosis and fresh hemorrhage associated with minimal inflammatory cells and with only mild/focal sinusoidal dilatation in the also abundant viable liver tissue. No significant inflammation (steatohepatitis) is otherwise seen in the liver parenchyma or portal tracts and no significant bile stasis is identified. No thrombi are seen. A panel of properly controlled special stains shows the following results: Trichrome: negative for fibrosis/cirrhosis Reticulin: generally normal with collapse of plates in centrolobular areas of necrosis and hemorrhage Iron: negative PAS with and without diastase: no globules identified Although outflow obstruction cannot be entirely excluded, it is thought to be unlikely because of the minimal sinusoidal dilatation seen and the features are most consistent with hypoperfusion ('shock liver'), although the possibility of toxin (medication) should also be considered. Preliminary findings discussed with Dr. Shelton at approximately 11:25 on 09/28/2017. Reviewed with Dr. Paz Haywood who agrees with the interpretation. (MOSHE:mgr; 09/28/2017) PATHOLOGIST: Gautam Tyler M.D. REPORT ELECTRONICALLY SIGNED BY: Gautam Tyler M.D. DATE/TIME: 09/28/2017 16:28 * * * * * * * * * * * * GROSS PATHOLOGY: [place] [address] SURGICAL PATH RPT PROCEDURE Name: MAXIMINO SOUZA Room: [address] IN [facility].#: [id number] Admission: 09/17/17 Date of : 56 Discharge: Report #: [id number] Path Case #: [id number] The specimen is received in formalin, labeled "Maximinokwasi Souza and liver biopsy", are several mohr-brown needle cores the aggregate measure 1.6 x 0.3 x 0.1 cm, entirely submitted in A1. (SWS; 09/27/2017) CLINICAL HISTORY: Acute liver failure, sepsis, cholecystitis INITIAL CPT CODE(S): A; 89507, 58818, 60947, 75668, 43401, 02060 Professional services performed by [facility] [place] [address] Technical services performed by [facility] at [address] [place] [address], [address], [place] [address]. [facility] [address] [place] [address] PHONE: [phone] DIRECTOR: Leighton Butler M.D. * * * END OF REPORT * * *
--- NOTE | 2017-09-28 17:33 | NUR ---
PATIENT SWITCHED TO PROPOFOL TO ATTEMPT TO WAKE UP BETTER. 2 HOUR SEDATION VACATION, PATIENT WOKE UP BUT WOULD NOT FOLLOW COMMANDS. PATIENT PRODUCING URINE. TUBE FEEDING CONTINUED TO BE HELD PER DR. LYONS. BLOOD PRESSURE DOING BETTER TODAY. BEDSIDE REPORT TO BE GIVEN TO ONCOMING SHIFT.
[2017-09-29] VITALS (10 sets, daily range): BP systolic 151–200; BP diastolic 66–102
--- NOTE | 2017-09-29 04:35 | NUR ---
PROPOFOL TURNED OFF FOR WEANING TRIAL.
--- NOTE | 2017-09-29 05:10 | NUR ---
MINIMAL PROGRESSION TOWARDS GOAL. ASSESSMENT AND VS OBTAINED THROUGH OUT THE NIGHT, SEE CHARTING. CARDIAC ON AND TRACING V PACED. PT HAS A FECAL TUBE IN PLACE AND REJI BAG IN PLACE. NOT MUCH IN EITHER OF THE TWO TUBES. REMAINS SEDATED ON PROPOFOL. PT STILL REMAINS ON VENT WITH ORDER SETTINGS. WEANING TRIAL DONE THIS AM AND PT DID WELL EXCEPT SHE DIDN'T RESPOND TO ANYTHING. KEPT OFF THE PROPOFOL TO SEE IF PT STARTS RESPONDING.
[2017-09-29 05:47] LABS: HEMATOCRIT 29.4 % (37.0-47.0); HEMOGLOBIN 9.4 gm/dL (12.0-15.0); MCH 26.7 pg (26.0-34.0); MCHC 32.2 g/dL (28.0-37.0); MPV 9.4 fl. (7.2-11.1); RBC 3.54 mil/uL (4.20-5.00); RDW-CV 17.3 % (10.5-14.5); WBC 9.9 thou/uL (4.0-11.0)
[2017-09-29 05:51] LABS: ALBUMIN 3.1 g/dL (3.4-5.0); MAGNESIUM 3.2 mg/dL (1.8-2.4); POTASSIUM 4.8 mmol/L (3.5-5.1); TOTAL BILIRUBIN 11.9 mg/dL (<0.1-1.0); TOTAL PROTEIN 5.6 g/dL (6.4-8.2)
--- NOTE | 2017-09-29 06:16 | NUR ---
KEPT PT OFF PROPOFOL AT THIS TIME TO SEE IF SHE RESPONDS TO US.
--- NOTE | 2017-09-29 18:00 | NUR ---
PATIENRT REMAINS ON VENT WITHOUT SEDATION. STILL DOES NOT RESPOND TO VOICE TURNS HEAD FROM SIDE TO SIDE. REMAINS A FEBRILE WITH MINIMAL SECRETIONS. USING BED THERAPY TURNING. PROGRESSING SLOWLY. AMMONIA WNL.
--- NOTE | 2017-09-29 20:45 | NUR ---
ASSESSMENT AND VS OBTAINED. BELLSTAND ATTENDANT ON AND TRACING A FLUTTER V PACED. PT REMAINS OFF ALL SEDATION AND IS NOT RESPONDING TO OR NURSING. AT THE BEDSIDE AND IS REALLY CONCERNED THAT SHE HASN'T WOKEN UP. I EXPLAINED TO HIM THAT WE WOULD NEED TO CONSULT NEUROLOGY AND GET THERE OPINION.
--- NOTE | 2017-09-29 21:00 | NUR ---
SPOKE TO DR DELANEY RE: PT'S NEURO ASSESSMENT AND RECIEVED AN ORDER FOR NEURO CONSULT. CALLED AND SPOKE TO DR GARRIDO RE: NEURO ASSESSMENT AND RECIEVED ORDERS. WE ARE NOT TO GIVE ANY SEDATION AND PAIN MEDS AT ALL AND ORDER A EEG.
--- NOTE | 2017-09-29 21:40 | NUR ---
NOTIFIED NANDO AT [phone] OF THE ORDER. HE STATED HE WILL BE IN [place] AM.
[2017-09-30] VITALS (14 sets, daily range): BP systolic 180–216; BP diastolic 87–116
[2017-09-30 04:30] LABS: MCV 83.9 fL (80.0-100.0); RDW-CV 17.2 % (10.5-14.5)
[2017-09-30 04:32] LABS: HEMATOCRIT 29.2 % (37.0-47.0); MCH 25.9 pg (26.0-34.0); MCHC 30.9 g/dL (28.0-37.0); MPV 9.5 fl. (7.2-11.1); RBC 3.48 mil/uL (4.20-5.00); WBC 14.9 thou/uL (4.0-11.0)
[2017-09-30 04:44] LABS: ALBUMIN 3.1 g/dL (3.4-5.0); CALCIUM 8.6 mg/dL (8.5-10.1); CREATININE 1.2 mg/dL (0.6-1.3); MAGNESIUM 2.8 mg/dL (1.8-2.4); POTASSIUM 5.1 mmol/L (3.5-5.1); TOTAL BILIRUBIN 12.4 mg/dL (<0.1-1.0); TOTAL PROTEIN 5.6 g/dL (6.4-8.2)
[2017-09-30 05:17] LABS: BE 1.2 mmol/L (-2 to +3); HCO3 24.8 mmol/L (22.0-26.0); PCO2 35.2 mmHg (35.0-45.0); PO2 95.4 mmHg (75.0-100.0); pH 7.465 (7.340-7.450)
--- NOTE | 2017-09-30 07:39 | NUR ---
PATIENT REMAINS UNRESPONSIVE TO STIMULI. HAS BEEN OFF OF ANY TYPE OF SEDATIVE SINCE 09/29/17 IN THE AM. IV REMAINS PATENT TO LAB DRAWS AND IV FLUIDS. BATH PROVIDED THIS AM. GALL BLADDER TUBE PATENT TO DEPENDENTDRAINAGE. FLEXISEAL PATENT AND DRAINING MODERATE AMOUNT OF STOOL. CATHETER PATENT TO GRAVITY. BILATERAL EDEMA TO LOWER EXTREMITIES REMAINS A 4+. PUSES 2+ UNDER EDEMA. NURSING ASSESSMENT DOCUMENTED. EEG TO BE DONE THIS AM. WILL DETERMINE PLAN OF CARE FOLLOWING THIS.
--- NOTE | 2017-09-30 12:58 | NUR ---
NOTIFIED TO PLACE PICC LINE TO REPLACE IJ CENTRAL LINE. PATIENT IS NOTED TO HAVE A LEFT SIDED PACEMEAKER AND A RIGHT SIDED PORT WELL. CONSENT AND ORDER NOTED. A #5F TRIPLE LUMEN POWER PICC WAS PLACED PER POLICY AFTER A TIMEOUT WAS COMPLETE. RUE BASILIC WAS WIDLEY PATENT. PICC TRIMMED TO 45CM AND ADVANCED WITHOUT DIFFICULTY. LINE CONFIRMED USING A CHEST XRAY. LINE RELEASED FOR USE. THE RECORD PRODUCER IS TO REMOVE RIGHT IJ
[2017-10-01] VITALS (23 sets, daily range): BP systolic 114–199; BP diastolic 75–106
--- NOTE | 2017-10-01 01:34 | NUR ---
PT SHOWING SIGNS OF IMPROVED LOC. PT SPONTANEOUSLY OPENS EYES. PT FREQUENTLY SHAKES HEAD BACK AND FORTH SHE HAS DONE FOR THE LAST FEW DAYS, HOWEVER TONIGHT PT WAS ASKED TO NOD HER HEAD UP AND DOWN AND SHE DID SO. PT STILL DOES NOT TRACK EYES TO FOLLOW OBJECT MOVED IN HER FIELD OF VISION OR SQUEEZE HAND WHEN ASKED BUT SHE DOES TURN HEAD AND LOOK AT INDIVIDUAL NEAR HER IN THE ROOM. PT REMAINS HYPERTENSIVE, TREATING WITH CLONIDINE PATCH, IV METOPROLOL, AND PRN IV HYDRALAZINE. NOVASOURCE RENAL TF INFUSING AT 10ML/HR PER ORDER, RESIDUALS HAVE BEEN 0-5ML. DRESSINGS X3 TO LLE CHANGED, WOUNDS CLEANSED WITH WOUND CLEANSER AND PHOTOGRAPHED FOR PT RECORD.
[2017-10-01 03:58] LABS: CALCIUM 8.6 mg/dL (8.5-10.1); CREATININE 0.9 mg/dL (0.6-1.3); MAGNESIUM 2.6 mg/dL (1.8-2.4); POTASSIUM 4.8 mmol/L (3.5-5.1); TOTAL BILIRUBIN 14.4 mg/dL (<0.1-1.0); TOTAL PROTEIN 5.5 g/dL (6.4-8.2)
[2017-10-01 05:34] LABS: HEMOGLOBIN 9.2 gm/dL (12.0-15.0); RBC 3.56 mil/uL (4.20-5.00); WBC 13.6 thou/uL (4.0-11.0)
[2017-10-01 05:35] LABS: HEMATOCRIT 29.8 % (37.0-47.0); MCH 25.9 pg (26.0-34.0); MCV 83.7 fL (80.0-100.0); MPV 9.3 fl. (7.2-11.1); RDW-CV 17.2 % (10.5-14.5)
[2017-10-01 05:43] LABS: BE 3.1 mmol/L (-2 to +3); HCO3 27.7 mmol/L (22.0-26.0); PCO2 42.3 mmHg (35.0-45.0); pH 7.434 (7.340-7.450)
--- NOTE | 2017-10-01 07:51 | NUR ---
ASSUMED CARE OF PATIENT AFTER RECEIVING BEDSIDE REPORT. ASSESSMENT COMPLETED, VSS. PATENT REMAINS HYPERTENSIVE. PATIENT NOT ON SEDATION. WILL OPEN EYES TO NAME AND WILL TRACK. WILL NOT FOLLOW COMMANDS AND FALLS BACK TO SLEEP QUICKLY. PATIENT REMAINS ON THE VENT WITH A BITE BLOCK. PATIENT HAS STRONG GAG REFLEX. NEIGHBORHOOD PLANNER IN PLACE, AFIB/AFLUTTER NOTED. EDEMA STILL PRESENT BUT SLIGHTLY IMPROVED. PATIENT NOTABLY MORE JAUNDICED. PATIENT AFEBRILE. RESTRAINTS IN PLACE. BED ALARM ON. CALL LIGHT WITHIN REACH. WILL CONTINUE TO MONITOR.
--- NOTE | 2017-10-01 10:15 | NUR ---
SPOKE WITH AT BEDSIDE. HE IS AWARE THE PLAN IS TO SEE IF PT WILL WAKE UP MORE AND BE MORE RESPONSIVE BEFORE EXTUBATION. HE SAID PT IS RESPONDING SOME TO HIM TODAY. HE HAS NO QUESTIONS ABOUT PLAN OF CARE, SAYS NURSING HAS DONE A GOOD JOB IN KEEPING HIM UPDATED. CASE MGT WILL CONTINUE TO FOLLOW.
--- NOTE | 2017-10-01 18:09 | NUR ---
PATIENT MORE RESPONSIVE AT THIS TIME BUT ONLY FOLLOWING COMMANDS ABOUT 50% OF THE TIME. PATIENT AFEBRILE. PATIENT CONTINUES TO BE HYPERTENSIVE. PATIENT'S SECRETIONS HAVE BECOME MORE BLOOD TINGED. PATIENT DIURESED, ADEQUATE URINE OUTPUT FROM THAT. BEDSIDE REPORT TO BE GIVEN TO ONCOMING SHIFT.
[2017-10-02] VITALS (17 sets, daily range): BP systolic 131–202; BP diastolic 72–103
[2017-10-02 02:24] LABS: HEMATOCRIT 29.3 % (37.0-47.0); HEMOGLOBIN 9.1 gm/dL (12.0-15.0); MCH 25.9 pg (26.0-34.0); MCHC 30.9 g/dL (28.0-37.0); MCV 83.6 fL (80.0-100.0); MPV 8.6 fl. (7.2-11.1); RBC 3.51 mil/uL (4.20-5.00); RDW-CV 17.7 % (10.5-14.5); WBC 13.8 thou/uL (4.0-11.0)
[2017-10-02 02:36] LABS: ALBUMIN 2.8 g/dL (3.4-5.0); CALCIUM 8.4 mg/dL (8.5-10.1); CREATININE 0.9 mg/dL (0.6-1.3); MAGNESIUM 2.3 mg/dL (1.8-2.4); POTASSIUM 4.5 mmol/L (3.5-5.1); TOTAL BILIRUBIN 13.9 mg/dL (<0.1-1.0); TOTAL PROTEIN 5.4 g/dL (6.4-8.2)
[2017-10-02 02:43] LABS: ALBUMIN 2.9 g/dL (3.4-5.0); DIRECT BILIRUBIN 11.5 mg/dL (<0.1-0.3); TOTAL PROTEIN 5.1 g/dL (6.4-8.2)
--- NOTE | 2017-10-02 07:30 | NUR ---
pt remans alert and following commands.renal source remains infusing at 10 ml per hour.water bolus given.pt remians on vent.
[2017-10-02 09:47] LABS: BE 2.5 mmol/L (-2 to +3); HCO3 26.6 mmol/L (22.0-26.0); pH 7.451 (7.340-7.450)
[2017-10-02 09:48] LABS: PO2 132.2 mmHg (75.0-100.0)
--- NOTE | 2017-10-02 10:15 | NUR ---
PT TUBE TRIAL FINISHED. ABGS WERE CALLED TO DR EDUARDO. TORRES RECIEVED TO JULIA PT. RESP THERAPY CALLED MELIZA MOORE MADE AWARE OF EXTABATION ORDER.
--- NOTE | 2017-10-02 10:20 | NUR ---
SPOKE WITH AT BEDSIDE. PT ALERT AND ABLE TO FOLLOW CONVERSATION AND COMMUNICATE. PT TO BE EXTUBATED THIS MORNING. CONFIRMED WITH PT AND , PT REMAINS A FULL CODE. CASE MGT WILL CONTINUE TO FOLLOW.
[2017-10-02 14:39] LABS: BE 0.5 mmol/L (-2 to +3); HCO3 25.6 mmol/L (22.0-26.0); PCO2 42.8 mmHg (35.0-45.0); pH 7.394 (7.340-7.450)
--- NOTE | 2017-10-02 18:14 | NUR ---
PT REMANS OFF VENT WITH 02 SATS 96% ON 2.O LITERS PER N/C. PT MOUTH SWAB APPX EVERY 1 HOUR. PT LEF AND UPPER EXTREMITIES REMAIN ELEVATED ON PILLOWS. HERE FREQUENTLY. PT REMIANS NPO. SPPECH THERAPY HERE TO CHECK ON PT AND WILL BE BACK IN AM FOR SWALLOW EVAL.PT TURNED THROUGH SHIFT. PT MEDICATED FOR PAIN IN LEGS TIMES 1.DUE TO O/G REMOVAL PT TUBE FEEDING HAS BEEN STOPPED. WILL CONTINUE TO MONITOR FREQUENTLY.
[2017-10-03] VITALS (14 sets, daily range): BP systolic 128–180; BP diastolic 78–96
[2017-10-03 04:22] LABS: HEMATOCRIT 25.6 % (37.0-47.0); HEMOGLOBIN 7.8 gm/dL (12.0-15.0); MCH 25.7 pg (26.0-34.0); MCHC 30.6 g/dL (28.0-37.0); MCV 83.9 fL (80.0-100.0); MPV 9.9 fl. (7.2-11.1); RBC 3.06 mil/uL (4.20-5.00); RDW-CV 17.1 % (10.5-14.5); WBC 15.6 thou/uL (4.0-11.0)
[2017-10-03 04:37] LABS: ALBUMIN 2.7 g/dL (3.4-5.0); CALCIUM 8.3 mg/dL (8.5-10.1); CREATININE 0.7 mg/dL (0.6-1.3); MAGNESIUM 2.1 mg/dL (1.8-2.4); POTASSIUM 4.7 mmol/L (3.5-5.1); TOTAL BILIRUBIN 9.5 mg/dL (<0.1-1.0); TOTAL PROTEIN 5.2 g/dL (6.4-8.2)
--- NOTE | 2017-10-03 05:06 | NUR ---
PT. PROGRESSING TOWARDS GOALS. REMAINS ON 2L O2, PUT ON CPAP FOR SHORT PERIOD THIS SHIFT. PT. IS LOOKING FORWARD TO GETTING ST EVAL DONE SO SHE CAN DRINK/EAT. VERY WEAK. BARIATRIC BED KEPT IN ROTATION MODE THIS SHIFT. VPACED. IVF INFUSING. WILL CONTINUE TO MONITOR.
--- NOTE | 2017-10-03 11:42 | NUR ---
WOUND CARE NOTE: REASSESSMENT OF LEFT LEG WOUNDS. EDEMA AND INFLAMMATION HAVE DECREASED SIGNIFICANTLY SINCE LAST ASSESSMENT ON 09/27/17. ECCHYMOSIS REMAINS TO BILATERAL LEGS. 2+ PEDAL PULSE LEFT MEDIAL LEG-DISTAL: ORIGINAL WOUND, HEALING. WOUND MEASURES 6X6.5X0.2. WOUND BED HAS 95% RED, MOIST TISSUE AND 5% YELLOW ADHERENT SLOUGH. WOUND CLEANSED WITH WOUND CLEANSER, PATTED DRY. APPLIED OPTIFOAM AG. BANDAR-WOUND CONTINUES TO BE EDEMATOUS WITH ECCHYMOSIS. LEFT MEDIAL LEG-PROXIMAL: RUPTURED BLISTER MEASURING 2.5X5.2X0.1. WOUND BED IS PINK, MOIST. BANDAR-WOUND IS EDEMATOUS. WOUND CLEANSED WITH WOUND CLEANSER, PATTED DRY. APPLIED OPTIFOAM AG. LEFT LATERAL LE RUPTURED BLISTERS, CLUSTERED MEASURE 3X2.3X0.1. RED, MOIST WOUND BED, HEALING. GENTLY CLEANSED WOUNDS WITH WOUND CLEANSER, PATTED DRY. APPLIED OPTIFOAM AG. OVERALL LEG AND WOUNDS APPEAR TO BE IMPROVING. CURRENTLY WAITING ON SWALLOW STUDY TO SEE IF PATIENT CAN EAT. NUTRITION IS IMPORTANT FOR THESE WOUNDS TO HEAL. RECOMMEND ENCOURAGE GOOD NUTRITION AND HYDRATION, ONCE ABLE, FOR WOUND HEALING COMPRESSION THERAPY IF PATIENT ABLE TO TOLERATE FOLLOW UP IN WOUND CENTER UPON DISCHARGE
--- NOTE | 2017-10-03 17:16 | NUR ---
PATIENT PROGRESSED WELL TOWARDS GOALS TODAY. WORKED WITH SPEECH, OT AND PT. NOW TELE STATUS. HAS PAIN IN LEGS AND ABDOMEN, MORIPHINE Q2H PRN AND NORCO PO. FLEXISEAL D/C TODAY. ABDOMINAL DRAIN AND SANCHEZ REMAIN IN PLACE. IS NECTAR THICK LIQUIDS AND MECHANICAL SOFT GROUND FOOD FOR MEALS PER SPEECH RECOMMENDATION. PAIN AT THIS TIME, BRINGING PAIN MEDS, NO NAUSEA OR SHORTNESS OF AIR. BED IN LOWEST POSITION, FALL PRECAUTIONS IN PLACE. WILL CONTINUE TO MONITOR.
[2017-10-04] VITALS (13 sets, daily range): BP systolic 108–158; BP diastolic 67–92
[2017-10-04 03:42] LABS: MCHC 30.7 g/dL (28.0-37.0)
[2017-10-04 03:44] LABS: HEMATOCRIT 22.4 % (37.0-47.0); MCH 25.7 pg (26.0-34.0); MCV 83.7 fL (80.0-100.0); MPV 10.3 fl. (7.2-11.1); NUCLEATED RBCS 1 /100WBC; PLATELET COUNT* 155 thou/uL (150-400); RBC 2.68 mil/uL (4.20-5.00); RDW-CV 17.5 % (10.5-14.5); WBC 20.3 thou/uL (4.0-11.0)
[2017-10-04 03:52] LABS: HEMOGLOBIN 6.9 gm/dL (12.0-15.0)
[2017-10-04 03:59] LABS: ALBUMIN 2.5 g/dL (3.4-5.0); CALCIUM 8.1 mg/dL (8.5-10.1); CREATININE 0.7 mg/dL (0.6-1.3); MAGNESIUM 2.1 mg/dL (1.8-2.4); PHOSPHORUS* 4.1 mg/dL (2.5-4.9); POTASSIUM 4.8 mmol/L (3.5-5.1); TOTAL BILIRUBIN 9.9 mg/dL (<0.1-1.0)
[2017-10-04 05:11] LABS: ABSOLUTE LYMPHOCYTES 0.2 thou/uL (0.8-5.3); ABSOLUTE MONOCYTES 0.8 thou/uL (0.0-1.2); ABSOLUTE NEUTROPHILS 19.3 thou/uL (1.6-8.1); MYELOCYTES 1 %; PLATELET ESTIMATE ADEQUATE
[2017-10-04 05:12] LABS: HYPOCHROMASIA 1+; LARGE PLATELETS FEW; TARGET CELLS 1+
[2017-10-04 05:13] LABS: ANISOCYTOSIS 1+; POIKILOCYTOSIS 1+
--- NOTE | 2017-10-04 10:00 | NUR ---
NURSING TO HAVE SPEECH COME RE-EVAL SWALLOWING, PT DOESN'T LIKE THICKENED LIQUIDS AND IS MUCH MORE ALERT THAN WHEN INITIAL SWALLOW EVAL WAS DONE. PT REMAINS VERY WEAK. REHAB EVAL PENDING, PT MIGHT ALSO BE APPROPRIATE FOR RESIDENTIAL ACUTE CARE.
--- NOTE | 2017-10-04 10:00 | NUR ---
SPOKE TO DR DE JESUS RE:EGD TODAY. NO ORDERS YET RECEIVED. PT KEPT NPO. LOVENOX HELD PER DR GONSALEZ. DR DE JESUS TO EVALUATE UPON ROUNDS. PT INFORMED
--- NOTE | 2017-10-04 12:54 | NUR ---
RECEIVED CONSULT FOR POSSIBLE REHAB ADMISSION. CONSULT ACKNOWLEDGED BY COBOL APPLICATION DEVELOPER AND DR. HUFF. PATIENT IS CURRENTLY IN ICU, THERAPY EVALUATIONS COMPLETED. PATIENT CURRENTLY DEPENDENT WITH PHYSICAL MOBILITY AND GROOMING TASKS. WILL FOLLOW ALONG WITH PT TO DETERMINE PATIENTS ABILITY TO COMPLETE THREE HOURS OF THERAPY A DAY FOR INTENSIVE REHAB PROGRAM. THANK YOU FOR THIS CONSULT.
--- NOTE | 2017-10-04 16:48 | NUR ---
PT RESTING IN BED THROUGHOUT SHIFT. PT REMAINS NPO THROUGHOUT SHIFT FOR POSSIBLE EGD. PT A&OX4. SANCHEZ CATH DRAINING ORANGE URINE. PT REPOSTIONED FREQUENTLY. BLOOD TRANSFUSION TODAY. PT TOLERATED WELL. ORAL CARE PERFORMED FREQUENTLY. AT BS AND UPDATED ON PLAN OF CARE
[2017-10-04 17:49] LABS: HEMATOCRIT 26.5 % (37.0-47.0); HEMOGLOBIN 8.4 gm/dL (12.0-15.0)
[2017-10-04 17:55] LABS: INR 1.2; PROTIME 11.5 Seconds (9.20-11.50)
[2017-10-05] VITALS (7 sets, daily range): BP systolic 124–158; BP diastolic 51–82
[2017-10-05 03:46] LABS: HEMOGLOBIN 7.3 gm/dL (12.0-15.0)
[2017-10-05 03:47] LABS: ABSOLUTE BASOPHILS 0.4 thou/uL (0.0-0.2); ABSOLUTE EOSINOPHILS 0.1 thou/uL (0.0-0.7); ABSOLUTE LYMPHOCYTES 6.8 thou/uL (0.8-5.3); ABSOLUTE MONOCYTES 1.2 thou/uL (0.0-1.2); ABSOLUTE NEUTROPHILS 13.2 thou/uL (1.6-8.1); BASOPHILS 1.8 %; EOSINOPHILS 0.6 %; HEMATOCRIT 23.1 % (37.0-47.0); LYMPHOCYTES 31.2 %; MCH 26.1 pg (26.0-34.0); MCHC 31.7 g/dL (28.0-37.0); MCV 82.3 fL (80.0-100.0); MONOCYTES 5.6 %; MPV 10.4 fl. (7.2-11.1); NUCLEATED RBCS 2 /100WBC; PLATELET COUNT* 183 thou/uL (150-400); POLYS 60.8 %; RDW-CV 17.3 % (10.5-14.5); WBC 21.7 thou/uL (4.0-11.0)
[2017-10-05 03:59] LABS: ALBUMIN 2.4 g/dL (3.4-5.0); CALCIUM 8.3 mg/dL (8.5-10.1); CREATININE 0.9 mg/dL (0.6-1.3); MAGNESIUM 2.1 mg/dL (1.8-2.4); POTASSIUM 4.4 mmol/L (3.5-5.1); TOTAL BILIRUBIN 9.7 mg/dL (<0.1-1.0); TOTAL PROTEIN 4.8 g/dL (6.4-8.2)
[2017-10-05 04:02] LABS: PREALBUMIN 39.3 mg/dL (18.0-35.7)
--- NOTE | 2017-10-05 05:51 | NUR ---
PT PROGRESSING TOWARD GOALS. PT MAINTAINED HEMODYNAMIC STABILITY DURING THE EVENING. PT CONTINUES TO HAVE TROUBLE SWOLLOWING PILLS. PT COMPLAINS THAT SHE IS IN CONSTANT PAIN WITH NO RELIEF WITH PAIN MEDICATION. PT DISPLAYS LITTLE TO NO EFFORT WHEN TURNING. PT STATED SHE IS TOO WEAK TO MOVE HER ARMS OR LEGS.
--- NOTE | 2017-10-05 08:24 | NUR ---
ASSUMED CARE OF PATIENT AFTER RECEIVING BEDSIDE REPORT. ASSESSMENT COMPLETED, VSS. PATIENT ONLY COMPLAINS OF WANTING TO DRINK, RN EXPLAINED NPO STATUS, PATIENT STATES UNDERSTANDING. MILLWRIGHT IN PLACE, V-PACED WITH UNDERLYING AFIB NOTED. PATIENT REPORTS NOT SLEEPING WELL THE NIGHT BEFORE AND REQUESTS A BATH. PATIENT REMAINS ON SELF TURNING BARIATRIC BED. BED ALARM ON. CALL LIGHT WITHIN REACH, USE REINFORCED. WILL CONTINUE TO MONITOR.
--- NOTE | 2017-10-05 14:29 | NUR ---
SPOKE WITH PT THIS MORNING. PT REMAINS EXTREMELY WEAK, UNABLE TO REPOSITION HERSELF OR MOVE HER ARMS WITHOUT ASSISTANCE. STARTED DISCUSSION WITH PT ABOUT DISCHARGE PLANS. PT SAID THAT SHE WAS ABLE TO TRANSFER [place] TO HER ELECTRIC WHEELCHAIR, [place] AT WHEELCHAIR LEVEL AT HOME. HER IS RETIRED AND CAN BE WITH HER ALL THE TIME. DISCUSSED REHAB OPTIONS WITH HER. SHE HAS AN INPT REHAB EVAL ORDERED, PT WOULD NEED TO BE ABLE TO TOLERATE 3 HOURS OF THERAPY ON REHAB AND AT THIS POINT I DON'T KNOW THAT SHE COULD. DISCUSSED SNF ANOTHER OPTION. SHE SAID SHE DID NOT WANT TO GO TO [facility]. SHE IS OKAY IF I CHECK WITH SOME OF THE AREA SNF'S JUST TO CHECK ON WEIGHT LIMITS TO GIVE US OPTIONS FOR WHEN SHE IS READY FOR DISCHARGE. PT WANTS TO RETURN HOME BUT UNDERSTANDS SHE WILL HAVE TO BE STRONGER BEFORE SHE COULD GO HOME. PT LIVES IN [place], I CALLED [facility] AND [facility], THEY BOTH SAID THEY POTENTIALLY COULD ACCOMADATE HER WEIGHT AND TO SEND REFERRALS WHEN PT IS CLOSER TO DISCHARGE. CASE MGT WILL CONTINUE TO FOLLOW.
--- NOTE | 2017-10-05 14:30 | NUR ---
ASSUMED CARE OF PATIENT AT 1200. PT IS RESTING IN BED. VSS. EGD LATER TODAY.
--- NOTE | 2017-10-05 14:33 | NUR ---
PT LEAVING FOR EGD. BLOOD STARTED, NO REACTION NOTED. PT TO RECOVER IN PACU AND GO TO ROOM 218. REPORT TO BE CALLED.
--- NOTE | 2017-10-05 18:54 | NUR ---
VSS, ASSUMED CARE FROM PACU, I AGREE WITH ICU ASSESSMENT FINDINGS, WILL FOLLOW WITH PLAN OF CARE AND HOURLY ROUNDS PT IS V-PACED ON THE MONITOR AND IS A&O4 AND ON RA,
--- NOTE | 2017-10-06 03:57 | NUR ---
PT ALERT ORIENTED. JAUNDICE NOTED. SANCHEZ WITH DARK YELLOW. TELEMETRY SHOWS SR BBB. HGB POST BLOOD 7.7. ON NECTAR THICK LIQUID. WILL CONTINUE TO MONITOR.
[2017-10-06 04:04] VITALS: BP 163/62
[2017-10-06 05:58] LABS: HEMATOCRIT 24.8 % (37.0-47.0); HEMOGLOBIN 7.9 gm/dL (12.0-15.0); MCH 26.8 pg (26.0-34.0); MCHC 31.7 g/dL (28.0-37.0); MCV 84.6 fL (80.0-100.0); MPV 10.4 fl. (7.2-11.1); NUCLEATED RBCS 6 /100WBC; PLATELET COUNT* 195 thou/uL (150-400); RBC 2.93 mil/uL (4.20-5.00); RDW-CV 17.4 % (10.5-14.5); WBC 22.5 thou/uL (4.0-11.0)
[2017-10-06 06:14] LABS: ALBUMIN 2.3 g/dL (3.4-5.0); CALCIUM 7.9 mg/dL (8.5-10.1); CREATININE 0.8 mg/dL (0.6-1.3); MAGNESIUM 2.1 mg/dL (1.8-2.4); POTASSIUM 3.9 mmol/L (3.5-5.1); TOTAL BILIRUBIN 16.2 mg/dL (<0.1-1.0); TOTAL PROTEIN 4.5 g/dL (6.4-8.2)
[2017-10-06 06:34] LABS: ABSOLUTE LYMPHOCYTES 0.7 thou/uL (0.8-5.3); BLASTS 1 %
[2017-10-06 06:35] LABS: ABSOLUTE MONOCYTES 1.8 thou/uL (0.0-1.2); ABSOLUTE NEUTROPHILS 19.8 thou/uL (1.6-8.1); ATYPICAL MONONUCLEARS 2 %; HYPOCHROMASIA 2+; METAMYELOCYTES 3 %; PLATELET ESTIMATE ADEQUATE
[2017-10-06 06:36] LABS: ANISOCYTOSIS 2+
[2017-10-06 10:30] VITALS: BP 144/60
[2017-10-06 11:30] VITALS: BP 153/66
[2017-10-06 15:30] VITALS: BP 176/72
--- NOTE | 2017-10-06 16:33 | NUR ---
PT C/O OF ABDOMINAL PAIN. PT HAD BM THIS SHIFT. PT DENIES INDIGESTION. PT REPORTS FEELING NAUSEATED AT TIMES. PT REFUSED ZOFRAN. DR NOTITIED ABOUT ABDOMINAL PAIN. DR ON FLOOR TO SEE PT, AWAITING ORDERS. PT C/O OF BACK PAIN. ASKED DR FOR HYDROCODONE PT TAKES THIS AT HOME RECEIVED ORDERED FOR ONE TIME TYLENOL AND HEATING PAD. HEATING PAD APPLIED. ABOUT 4 HOURS LATER PT C/O OF BACK PAIN. DR CALLED RECEIVED ORDERED FOR PRN TYLENOL. PT REQUESTING WATER. PT WANTING THIN LIQUIDS. PT EDUCATED ON THICKENED LIQUIDS. PT OFFERED DIFFERENT THICKENED FLAVORS. PT REPORTS ST TO SEE PT TODAY. CALLED ST AND ST TO SEE PT ON SUNDAY.
--- NOTE | 2017-10-06 17:33 | NUR ---
PT REPORTS FEELING NAUSEATED THIS EVENING AND REFUSES MEDICATION TO RELIEVE SYMPTOMS.
--- NOTE | 2017-10-06 18:24 | NUR ---
PT AGREEABLE TO TAKING ZOFRAN FOR NAUSEA. DURING HOURLY ROUNDING THIS RN ENCOURAGED ACTIVE RANGE OF MOTION. PT WEAK. FLUIDS ENCOURAGED. NUTRITION ENCOURAGED. PT HAS POOR APPETITE. PT C/O OF STOMACH PAIN. DR NOTIFIED AND NO ORDERS RECEIVED. PT'S REPORTS THIS IS CHRONIC PT COMPLAINT.
--- NOTE | 2017-10-06 18:25 | NUR ---
LEFT MID LATERAL WOUND DRESSING CHANGED 2 TIMES THIS SHIFT BECAME SATURATED.
[2017-10-06 20:00] VITALS: BP 143/63
[2017-10-06 21:43] LABS: HEMATOCRIT 23.8 % (37.0-47.0)
[2017-10-06 21:45] LABS: HEMOGLOBIN 7.4 gm/dL (12.0-15.0)
[2017-10-07] VITALS (7 sets, daily range): BP systolic 124–170; BP diastolic 60–83
--- NOTE | 2017-10-07 03:40 | NUR ---
PM HGB CAME BACK AT 7.4. ORDER TO TRANSFUSE IF LESS THAN 7.9. ONE UNIT PRBCS INFUSED. PT DROWSEY AT TIMES AROUSES EASILY. MORPHINE 2MG GIVEN ONCE FOR GENERALIZED PAIN. PT RESTED QUIETLY AFTER MORPHINE. PT NURSE DRAW FOR LABS. TELEMETRY SHOWS SR BBB. ON BARIATRIC BED. TURN Q 2 HRS. WILL CONTINUE TO MONITOR.
[2017-10-07 05:05] LABS: MCV 86.1 fL (80.0-100.0); RDW-CV 16.5 % (10.5-14.5); WBC 16.7 thou/uL (4.0-11.0)
[2017-10-07 05:06] LABS: HEMATOCRIT 26.6 % (37.0-47.0); HEMOGLOBIN 8.6 gm/dL (12.0-15.0); MCH 27.7 pg (26.0-34.0); MCHC 32.1 g/dL (28.0-37.0); MPV 10.3 fl. (7.2-11.1); RBC 3.09 mil/uL (4.20-5.00)
[2017-10-07 06:21] LABS: CALCIUM 8.2 mg/dL (8.5-10.1); CREATININE 0.8 mg/dL (0.6-1.3); POTASSIUM 3.8 mmol/L (3.5-5.1)
--- NOTE | 2017-10-07 17:00 | NUR ---
PT RESTING COMFORTABLY NOW AFTER FAMILY VISIT THIS AFTERNOON. O X 4, TALKATIVE WHILE AWAKE. PT WITH WEAKENED EXTREMITIES STATES SHE IS LOOKING FORWARD TO BEING ABLE TO SIT IN HER ELECTRIC WHEELCHAIR ONCE AGAIN. PRN PAIN MED GIVEN X1 FOR BACK PAIN. REPOSITION HELPS ALLEVIATE PT'S DISCOMFORT. PT HAS SANCHEZ CATHETER TO DEPENDENT DRNG. PANCREATIC DRAIN HAS APPROX 10 MLS SANGUINOUS FLUID IN BAG. OBTAINED A SOFT-TOUCH CALL LIGHT FOR PT. PT IS ABLE TO CALL FOR ASSIST IF CALL LIGHT IS POSITIONED IN HER HAND. FREQUENT OBSERVATION. PT ABLE TO COMMUNICATE NEEDS TO STAFF.
[2017-10-08] VITALS (7 sets, daily range): BP systolic 148–183; BP diastolic 68–87
[2017-10-08 05:05] LABS: HEMOGLOBIN 8.2 gm/dL (12.0-15.0)
[2017-10-08 05:07] LABS: HEMATOCRIT 25.5 % (37.0-47.0); MCH 27.6 pg (26.0-34.0); MCHC 32.1 g/dL (28.0-37.0); MCV 86.2 fL (80.0-100.0); MPV 10.3 fl. (7.2-11.1); RBC 2.96 mil/uL (4.20-5.00); RDW-CV 17.3 % (10.5-14.5); WBC 13.9 thou/uL (4.0-11.0)
[2017-10-08 05:18] LABS: CREATININE 0.7 mg/dL (0.6-1.3); MAGNESIUM 1.9 mg/dL (1.8-2.4); POTASSIUM 3.6 mmol/L (3.5-5.1)
--- NOTE | 2017-10-08 06:20 | NUR ---
BEGAN PT CARE AT 1930, PT REMAINED A/OX4, SR BBB ON THE MONITOR, RA, PT REFUSED HOME CPAP AT HS, SANCHEZ WITH DARK YELLOW TEA COLORED URINE, DRAIN TO URQ SCANT OUTPUT, QT2 COMPLETED, TYLENOL GIVEN X2 FOR CHRONIC BACK PAIN, MEDS/ASSESSMENT PER CHARTING, ALTERED DIET PER ORDERS, HOURLY ROUNDING COMPLETED, FALL PRECAUTIONS REMAIN IN PLACE AT ALL TIMES, WILL CONT TO MONITOR.
[2017-10-08 10:00] LABS: ALBUMIN 2.3 g/dL (3.4-5.0); DIRECT BILIRUBIN 17.9 mg/dL (<0.1-0.3); TOTAL BILIRUBIN 21.6 mg/dL (<0.1-1.0); TOTAL PROTEIN 4.4 g/dL (6.4-8.2)
[2017-10-08 14:58] LABS: INR 1.3; PROTIME 12.3 Seconds (9.20-11.50)
[2017-10-08 15:13] LABS: ALBUMIN 2.4 g/dL (3.4-5.0); CALCIUM 8.2 mg/dL (8.5-10.1); CREATININE 0.8 mg/dL (0.6-1.3)
[2017-10-08 15:14] LABS: POTASSIUM 3.3 mmol/L (3.5-5.1)
--- NOTE | 2017-10-08 15:29 | NUR ---
Following through dc. Spoke with Pt regarding disposition. Pt stated that she would like to go upstairs to acute rehab. Per Dr Fair's consult, there is question as to whether or not she would be able to tolerate 3 hours a day of therapy. Therapy has not worked with Pt since 10/05. Discussed alternatives if Pt is unable to go to acute rehab, Pt continued that she would be interested in [place] or [facility]. Faxed initial referrals.
--- NOTE | 2017-10-08 18:41 | NUR ---
ASSUMED RESPONSIBILITY OF PT THIS AM PT IS ALERT AND ORIENTED X3 BUT FORGETFUL CONT WITH STANLEY TRIPLE LUMEN PICC UP WITH PT ASSIST X2 SAT ON THE EDGE OF THE BED PT DIET UPGRADED TO CARB CONTROLLED/THIN LIQUIDS DENIES ANY PAIN T/O DAY JUST 'DOESN'T LIKE THE BED' TRACKING A-FIB ON THE MONITOR AT BEDSIDE MOST OF THE DAY
[2017-10-09] VITALS (7 sets, daily range): BP systolic 142–172; BP diastolic 75–95
--- NOTE | 2017-10-09 00:39 | NUR ---
BEGAN CARE OF PT AT 1930, PT A/OX4, RA, A/V PACED ON THE MONITOR, SANCHEZ IN PLACE DRAINING DARK TEA COLORED, REJI-DRAIN IN PLACE WITH SCANT AMT OF BRIGHT RED BLOOD NOTED IN COLLECTION BAG, PT TO BE NPO AT MIDNIGHT DUE TO RE-PLACEMENT OF DRAIN, DRESSING/WRAP NOTED TO LLE, PT NO LONGER ON THICKENED LIQUIDS OR ALT DIET, VSS, WILL CONT TO MONITOR.
--- NOTE | 2017-10-09 03:55 | NUR ---
NO ACUTE CHANGES WITH PT SINCE PM NOTE, PT NPO FOR DRAIN REPLACEMENT. WILL CONT TO MONITOR.
[2017-10-09 04:40] LABS: EOSINOPHILS 0.1 %; HEMATOCRIT 25.2 % (37.0-47.0)
[2017-10-09 04:41] LABS: ABSOLUTE BASOPHILS 0.1 thou/uL (0.0-0.2); ABSOLUTE LYMPHOCYTES 1.1 thou/uL (0.8-5.3); ABSOLUTE MONOCYTES 0.8 thou/uL (0.0-1.2); ABSOLUTE NEUTROPHILS 12.4 thou/uL (1.6-8.1); BASOPHILS 0.4 %; HEMOGLOBIN 8.1 gm/dL (12.0-15.0); LYMPHOCYTES 7.5 %; MCH 27.8 pg (26.0-34.0); MCHC 32.1 g/dL (28.0-37.0); MCV 86.6 fL (80.0-100.0); MONOCYTES 5.7 %; MPV 10.5 fl. (7.2-11.1); NUCLEATED RBCS 1 /100WBC; PLATELET COUNT* 199 thou/uL (150-400); POLYS 86.3 %; RBC 2.92 mil/uL (4.20-5.00); RDW-CV 16.8 % (10.5-14.5); WBC 14.4 thou/uL (4.0-11.0)
[2017-10-09 05:07] LABS: ALBUMIN 2.3 g/dL (3.4-5.0); CALCIUM 8.3 mg/dL (8.5-10.1); CREATININE 0.7 mg/dL (0.6-1.3); POTASSIUM 3.6 mmol/L (3.5-5.1); TOTAL PROTEIN 4.8 g/dL (6.4-8.2)
--- NOTE | 2017-10-09 10:22 | NUR ---
Pt does not meet acute rehab criteria. Faxed referrals to both [facility] and [facility].
--- NOTE | 2017-10-09 11:11 | NUR ---
PATIENT RESTARTING VANCOMYCIN FOR HEPATIC FAILURE/SEPSIS PER DR. TEJEDA. PATIENT WAS ADMITTED WITH [facility] AND RECEIVED DIALYSIS; RENAL ISSUES NOW RESOLVED AND OFF DIALYSIS. CURRENT LABS INCLUDE WBC=14.4, CR=0.7, CRCL (ADJ BW) >120. PER PHARMACY PROTOCOL, PATIENT WILL RECEIVE A 2G VANCOMYCIN BOLUS, FOLLOWED BY 1.25G Q8H THEREAFTER. A TROUGH IS SCHEDULED FOR 10/10 AT 1930 AND PHARMACY WILL FOLLOW.
--- NOTE | 2017-10-09 15:41 | NUR ---
[facility] is unable to meet Pt's needs. Spoke with Ernestine, at [facility], she believes that they will be able to accept Pt at dc. Anticipate dc in a few days.
--- NOTE | 2017-10-09 15:45 | EKG ---
[place] [address] ELECTROCARDIOGRAM REPORT Name: SAMI MARCELO Room: [address] ADM IN M.R.#: [id number] Admission: 09/17/17 Attend Phys: Fide Palma Discharge: Date of : 56 Report #: [id number] THIS REPORT FOR: //name// [facility] Test Date: 2017-10-09 Test Time: 00:56:32 Pat Name: SAMI MARCELO Department: Room: [address] Gender: F Can Tester: ESTUARDO : 1960 Requested By: Alex Lundberg Order Number: [id number] Reading MD: Simeon Aguilar Measurements Intervals [place] Rate: 74 P: VT: QRS: -66 QRSD: 159 T: 107 QT: 436 QTc: 484 Interpretive Statements Afib/flutter and ventricular-paced rhythm No further analysis attempted due to paced rhythm Baseline wander in lead(s) I,II Compared to ECG 09/17/2017 17:42:28 No significant changes Electronically Signed On 10-09-2017 15:45:36 ACADEMIC ASSISTANT by Simeon Aguilar [email or web address] <ELECTRONICALLY SIGNED> By: Simeon Aguilar MD, [facility] 10/09/17 1545 0056 0056 Simeon Aguilar MD, FAC /EPI
--- NOTE | 2017-10-09 17:30 | NUR ---
PATIENT IS ALERT AND ORIENTED TODAY VERY PLEASANT. WENT TO IR FOR A PROCEDURE TODAY AND TOLERATED WELL. HAS BEEN UP TO THE CHAIR MOST OF THE DAY WELL. VITAL SIGNS STABLE ON ROOM AIR. PATIENT IS ON BARIATRIC BED, WOUNDS STILL COVERED. IS AV PACED WITH A FIB. CALL LIGHT IN REACH, FREQUENT CHECKS, WILL CONTINUE TO MONITOR.
[2017-10-10] VITALS: BP 161/83
--- NOTE | 2017-10-10 03:42 | NUR ---
PT ALERT ORIENTED. TRAMADOL GIVEN TWICE. TYLENOL GIVEN ONCE FOR PAIN. BILI DRAIN FLUSHED AND DRAINING SCANT AMT OF SEROSANG. SANCHEZ WITH DK YELLOW. PT IS JAUNDICED. ON BARIATRIC BED. TURN Q 2 HRS. TELEMETRY SHOWS V PACED WITH UNDERLYING AFIB. WILL CONTINUE TO MONITOR.
[2017-10-10 04:00] VITALS: BP 147/90
[2017-10-10 05:02] LABS: PREALBUMIN 31.2 mg/dL (18.0-35.7)
[2017-10-10 05:20] LABS: ALBUMIN 2.2 g/dL (3.4-5.0); CALCIUM 8.2 mg/dL (8.5-10.1); CREATININE 0.6 mg/dL (0.6-1.3); MAGNESIUM 1.7 mg/dL (1.8-2.4); TOTAL BILIRUBIN 17.8 mg/dL (<0.1-1.0)
[2017-10-10 05:31] LABS: POTASSIUM 3.2 mmol/L (3.5-5.1)
[2017-10-10 05:32] LABS: TOTAL PROTEIN 4.6 g/dL (6.4-8.2)
[2017-10-10 05:48] LABS: HEMATOCRIT 24.3 % (37.0-47.0); HEMOGLOBIN 7.7 gm/dL (12.0-15.0)
[2017-10-10 05:51] LABS: MCH 27.8 pg (26.0-34.0); MCHC 31.8 g/dL (28.0-37.0); MCV 87.4 fL (80.0-100.0); MPV 9.9 fl. (7.2-11.1); NUCLEATED RBCS 1 /100WBC; PLATELET COUNT* 183 thou/uL (150-400); RBC 2.78 mil/uL (4.20-5.00); RDW-CV 17.2 % (10.5-14.5); WBC 12.8 thou/uL (4.0-11.0)
[2017-10-10 06:41] LABS: ABSOLUTE EOSINOPHILS 0.1 thou/uL (0.0-0.7); ABSOLUTE LYMPHOCYTES 0.3 thou/uL (0.8-5.3); ABSOLUTE MONOCYTES 0.5 thou/uL (0.0-1.2); ABSOLUTE NEUTROPHILS 11.9 thou/uL (1.6-8.1); PLATELET ESTIMATE ADEQUATE
[2017-10-10 06:42] LABS: ANISOCYTOSIS 1+; HYPOCHROMASIA 1+; POIKILOCYTOSIS 1+; POLYCHROMASIA Occasional; TARGET CELLS Occasional
[2017-10-10 07:30] VITALS: BP 142/78
--- NOTE | 2017-10-10 11:03 | NUR ---
RECEIVED PT CARE 0700. PT IS ALERT AND ORIENTED X4. VSS. FIRE INVESTIGATOR TRACING A-FLUTTER WITH BBB. PT DENIES ANY SOA. O2 SAT 96% ON ROOM AIR. REPOSITIONED FOR COMFORT. SANCHEZ DRAINING AMALIA COLORED URINE TO DEPENDENT DRAIN. BILI DRAIN FLUSHED AND REMAINING PATENT. AM ASSESSMENT CHARTED. MEDS PER MAR. BETTER APPETITE FOR BREAKFAST TODAY PER PATIENT. CONTINUES TO NEED ASSIST WITH MEALS AND FEEDING. DR GONSALEZ IN TO SEE PATIENT THIS AM. PLANNING TO DC TO LTACH IN 1-2 DAYS IF STABLE. PT WAS AGREEABLE. CALL LIGHT WITHIN REACH. WILL CONTINUE TO MONITOR.
[2017-10-10 11:30] VITALS: BP 131/71
--- NOTE | 2017-10-10 13:18 | NUR ---
CM SPOKE TO DR GONSALEZ TO DISCUSS DISCHARGE PLANNING FOR THE PATIENT AND HE INFROMS THAT CM IS ABLE TO BEGIN LOOKING FOR LTAC PLACEMENT TODAY AND THE PATIENT MAY D/C TOMORROW IF HER BILIRIBIN CONTINUES TO TREND DOWNWARD. CN SPOKE TO THE PATIENT TO INFORM OF THE NEED FOR LTAC AT DISCHARGE. PATIENT IN AGREEMENT. CM SPOKE TO BROWN AT [facility] TO INFORM OF THE REFERRAL AND HE CAME TO THE HOSPITAL TO ASSESS THE PATIENT. CM AWAITING A RETURN CALL ON [facility]'S DECISION TO ACCEPT THE PATIENT FOR LTAC. CM WILL REMAIN AVAILABLE TO ASSIST AND FOLLOW NEEDED.
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
[2017-10-10 15:30] VITALS: BP 138/72
--- NOTE | 2017-10-10 17:47 | CON ---
[address] [address] CONSULTATION Name: SAMI MARCELO Room: [address] IN [facility]#: [id number] Admission: 09/17/17 Attend Phys: Fide Palma Discharge: Date of : 56 Report #: [id number] THIS REPORT FOR: //name// CC: MARYANA physician/PCP Seth Reveles DO DATE OF SERVICE: 09/20/2017 REQUESTING PHYSICIAN: Seth Reveles DO. REASON FOR CONSULT: Abnormal liver function test. HISTORY OF PRESENT ILLNESS: This is a 56-year-old female who is morbidly obese and was admitted to the hospital with weakness and lethargy. The patient had been complaining of abdominal pain and has had recent history of falls. The patient initially was agitated and was in restraints. She is currently on 2 liter of O2 and reports to me that she felt short of breath. She denies nausea, vomiting, diarrhea, melena or hematochezia. PAST MEDICAL HISTORY: Significant for history of renal failure, pelvic mass, cellulitis, hyperlipidemia, asthma, GERD, gout, iron deficiency anemia, hypertension, CHF, left and right knee meniscus repair, avascular necrosis of the bone, lymphedema of the lower extremities, peripheral neuropathy, recurrent C. diff. ALLERGIES: SIGNIFICANT TO PENICILLIN, SULFA, PROMETHAZINE AND GABAPENTIN. MEDICATIONS: Please refer to hospital MAR. SOCIAL HISTORY: The patient is morbidly obese with multiple medical problems. She lives at home with her . Denies tobacco or alcohol use. FAMILY HISTORY: Noncontributory. PHYSICAL EXAMINATION: VITAL SIGNS: Reveals blood pressure of 148/107, respirations 16, pulse 70, and temperature is 97.7. LUNGS: Decreased breath sounds at the bases. CARDIOVASCULAR: Regular rate. ABDOMEN: Large, mildly tender to palpation in the epigastric area. NEUROLOGIC: The patient is alert, oriented, but easily falls asleep. LABORATORY DATA: Reveal sodium of 141, potassium 4.2, BUN is 27, creatinine 1.7, glucose is 141, AST 47, ALT 14, alkaline phosphatase 134, total bilirubin is 1.0. INR is 1.2. WBC is 17.6 with hemoglobin of 11.1 and platelet [place] 211[place] [address] CONSULTATION Name: SAMI MARCELO Room: [address] IN [facility]#: [id number] Admission: 09/17/17 Attend Phys: Fide Palma Discharge: Date of : 56 Report #: [id number] IMAGING: Abdominal ultrasound was obtained, which revealed hepatomegaly with fatty infiltration of the liver. Gallbladder appears somewhat distended with sludge, but with no apparent cholelithiasis or biliary ductal dilatation. ASSESSMENT AND PLAN: The patient with multiple medical problems and recent falls who is suspected to have rhabdomyolysis as her CPK was elevated in combination with elevated creatinine and AST to ALT ratio of 4. I believe that the elevation of AST is secondary to rhabdomyolysis. Note that the patient also has fatty liver disease, most probably due to hyperlipidemia and severe obesity. I will order a GGT. If the patient's abdominal pain does not resolve, we will consider a CCK PIPIDA scan. <ELECTRONICALLY SIGNED> By: Georgia Maldonado MD 10/10/17 1747 [id number] Maldonado MD /nt
--- NOTE | 2017-10-10 18:03 | NUR ---
PATIENT PROGRESSING TOWARDS GOALS. UP TO EDGE OF BED WITH PHYSICAL THERAPY THIS AFTERNOON. PAIN CONTROLLED WITH PRN PAIN MEDICATIONS. GOOD URINE OUTPUT. REPOSITIONED FOR COMFORT. WOUND DRESSINGS CHANGED TO LEFT LOWER EXTREMITY. PATIENT HAS POOR APPETITE AND NEEDS LOTS OF ENCOURAGEMENT WITH MEALS. PLANNING TO DC TO [facility] TOMORROW. HOURLY ROUNDING CHARTED. BILIARY DRAIN WAS FLUSHED WITH 20 ML'S. FLUSHED WELL WITH MINIMAL OUTPUT THIS SHIFT. BED ALARM ON. SOFT TOUCH CALL LIGHT WITHIN REACH. WILL CONTINUE PLAN OF CARE.
[2017-10-10 19:41] LABS: MAGNESIUM 1.8 mg/dL (1.8-2.4)
[2017-10-10 19:43] LABS: POTASSIUM 4.2 mmol/L (3.5-5.1)
[2017-10-10 20:30] VITALS: BP 136/70
--- NOTE | 2017-10-10 20:53 | NUR ---
VANCOMYCIN - PHARMACY TO DOSE INDICATIONS ARE FOR SEPSIS, AND CELLULITIS. THE TROUGH GOAL = 15-20 MCG/ML. THIS PATIENT'S CURRENT DOSE IS VANCOMYCIN 1.25 GRAMS IV EVERY 8 HOURS. RELEVANT LABS FOR THIS PATIENT ARE: SCR = 0.6, CRCL = 90.9, TMAX = 36.8, WBC = 12.8. THIS PATIENT'S VANCOMYCIN TROUGH RESULT WAS 28 MCG/ML. THIS IS HIGHER THAN OUR DESIRED GOAL, WE WILL HOLD THE DOSE FOR 24 HOURS AND ORDER ANOTHER TROUGH. IF THE TROUGH THAT WE HAVE ORDERED FOR 10/11/17 AT 12:00 IS LESS THAN 20 MCG/ML, THEN THE PENDING ORDER FOR VANCOMCYIN 1 GRAM IV EVERY 8 HOURS CAN BE RESTARTED. WE WILL FOLLOW
[2017-10-11 00:02] VITALS: BP 105/68
[2017-10-11 04:04] VITALS: BP 126/73
--- NOTE | 2017-10-11 04:55 | NUR ---
PT SLEPT WELL OFF AND ON OVERNIGHT. AWAKENED ONCE IN PANIC WITH BIPAP ON AND DISORIENTED, CALMED EASILY. ROOM AIR SAT 96%. HS ACCUCHECK 175, INSULIN GIVEN. VANC TROUGH CRITICAL, IV VANC HELD ORDERED, PO VANC GIVEN SCHEDULED. PT VERY WEAK. TURNED AND REPOSITIONED Q2 HOURS AND PRN FOR SKIN CARE AND PT COMFORT. ARMS AND LEGS ELEVATED ON PILLOWS PT MADE COMFORTABLE. LLE DRESSING CDI. EDEMA TO ALL EXTREMITIES. BILIARY DRAIN WITH SCANT AMOUNT SANGUANEOUS DRAINAGE, FLUSHED EASILY. STANLEY PICC SL WITH ABX GIVEN SCHEDULED. TELE. AM LABS. JAUNDICE. SOFT TOUCH CALL LITE IN EASY REACH. REMAINS ON SPECIALTY AIR BED. POSSIBLE DC TO LTAC TODAY. +BLOOD CULTURES LAST NIGHT, YEAST-ABX GIVEN ORDERED. SANCHEZ DRAINING AMALIA URINE. TRAMADOL GIVEN AT HS WITH GOOD RESULT.
[2017-10-11 07:30] VITALS: BP 116/67
[2017-10-11 08:37] VITALS: BP 116/67
[2017-10-11 08:51] LABS: HEMATOCRIT 25.9 % (37.0-47.0); PLATELET COUNT* 177 thou/uL (150-400)
[2017-10-11 08:53] LABS: HEMOGLOBIN 8.2 gm/dL (12.0-15.0); MCH 27.9 pg (26.0-34.0); MCHC 31.7 g/dL (28.0-37.0); MCV 87.9 fL (80.0-100.0); MPV 10.1 fl. (7.2-11.1); NUCLEATED RBCS 2 /100WBC; RBC 2.95 mil/uL (4.20-5.00); RDW-CV 17.4 % (10.5-14.5); WBC 12.3 thou/uL (4.0-11.0)
[2017-10-11 09:21] LABS: ALBUMIN 2.1 g/dL (3.4-5.0); CALCIUM 8.1 mg/dL (8.5-10.1); CREATININE 0.6 mg/dL (0.6-1.3); POTASSIUM 3.5 mmol/L (3.5-5.1); TOTAL BILIRUBIN 15.3 mg/dL (<0.1-1.0); TOTAL PROTEIN 4.8 g/dL (6.4-8.2)
[2017-10-11 09:53] LABS: ABSOLUTE EOSINOPHILS 0.2 thou/uL (0.0-0.7); ABSOLUTE LYMPHOCYTES 0.7 thou/uL (0.8-5.3); ABSOLUTE MONOCYTES 0.5 thou/uL (0.0-1.2); ABSOLUTE NEUTROPHILS 10.8 thou/uL (1.6-8.1); HYPOCHROMASIA 1+; PLATELET ESTIMATE ADEQUATE
[2017-10-11 09:54] LABS: ANISOCYTOSIS 1+; POIKILOCYTOSIS 1+; POLYCHROMASIA 1+
[2017-10-11 11:30] VITALS: BP 111/70
--- NOTE | 2017-10-11 12:05 | NUR ---
WOUND NURSE: PATIENT SEEN FOR FOLLOW UP SN ASSESSMENT PERTAINING TO LESION ON THE LLE. ONLY 3 OPEN AND DRAINING LESION NOTED UPON THIS ASSESSMENT. ANTERIOR PROXMAL LESION PRESENTS FOLLOWS: 2.0 X 6.0 X 0.1 CM. WOUND IS PROGRESSING TOWARD HEALING APPROXIMATELY 75% THIN FRIABLE EPITHELIAL TISSUE IS COVERING THE WOUND AND INTERSPERSED WITH 25% RED, NONGRANULATING TISSUE. TRHERE IS A MODERATE AMOUNT OF CLEAR YELLOW DRAINAGE ON THE OLD DRESSING. THERE IS MINIMAL EDEMA AND PERIWOUND TISSUE IS WITHOUT REDNESS, WARMTH, OR INDURATION. ANTERIOR DISTAL WOUND PRESENTS FOLLOWS: 5.0 X 6.0 X 0.1 CM. WOUND WITH FAVORABLE PROGRESS TOWARD HEALING EVIDENCED BY PRESENCE OF 75% PINK NONGRANULATING TISSUE IN THE WOUND BED INTERSPERSED WITH THIN FRIABLE PINK EPITHELIAL TISSUE; AND 25% THIN LAYER OF YELOW SLOUGH AND SCANT AMOUNT OF TISSUE NECROSIS ALONG THE MEDIAL EDGE OF THE WOUND. THERE IS MODERATE AMOUNT OF CLEAR YELLOW DRAINAGE ON THE OLD DRESSING AND NO ACTIVE DRAINAGE. THERE IS NO PERIWOUND REDNESS, WARMTH, OR INDURATED NOTED. THERE IS A 3RD SHALLOW OPEN WOUND ALONG INBETWEEN THE AFOREMENTIONED LESIONS AND ALONG THE LATERAL ASPECT OF THE LEG. THIS WOUND MEASURES 0.4 X 0.3 X 0.1 CM AND CONTAINS PINK NONGRANULATING TISSUE IN THE WOUND BED. THERE IS A SCANT AMOUNT OF SEROUS DRAINAGE ON THE OLD DRESSING AND NO ACTIVE DRAINAGE ASSOCIATED WITH THE WOUND. PATIENT'S SKIN IS DRY AND JAUNDICED. THE POSTERIOR TIBIAL AND DORSALIS PEDIS PULSES ARE PALPABLE AND STRONGE. LLE WAS CLEANSED WITH SOAP AND WATER, RINSED WITH WATER, THEN PATTED DRY. APPLIED MOISTURIZING LOTION TO INTACT SKIN TOES TO KNEE. APPLIED OPTIFOAM GENTLE AG TO EACH WOUND, THEN WRAPPED WITH KERLEX ROLL GAUZE, THEN SECURED WITH PAPER TAPE. ABOVE PROCEDURE WAS TOLERATED WELL WITH MINIMAL DISCOMFORT REPORTED BY PATIENT. PATIENT WAS INSTRUCTED ON MEASURES TO PROMOTE WOUND HEALING AND PREVENT FURTHER COMPLICATIONS. THIS INCLUDED INSTRUCTION ON THE IMPORTANCE OF APPROPRIATE NUTRITION AND OFFLOADING OF LESIONS. PATIENT REPORTED SHE UNDERSTOOD.
--- NOTE | 2017-10-11 13:32 | NUR ---
PATIENT WAS RECEIVING VANCOMYCIN 1.25G Q8H FOR THE TREATMENT OF SEPSIS. A TROUGH YIELDED A LEVEL OF 28, SO DOSING WAS HELD FOR 24 HOURS. A NEW LEVEL IS NOW 16 MCG/ML WHICH IS IN THE GOAL RANGE. VANCOMYCIN WILL BE RESTARTED AT 1G Q8H. CURRENT LABS INCLUDE WBC=12.3, CR=0.6, CRCL (ADJ BW) >120. A NEW TROUGH IS SCHEDULED FOR 10/12 AT 1330 AND PHARMACY WILL CONTINUE TO FOLLOW.
--- NOTE | 2017-10-11 13:58 | NUR ---
Anticipate dc tomorrow. Updated Jean Marie with [facility].
[2017-10-11 15:30] VITALS: BP 143/86
--- NOTE | 2017-10-11 19:02 | NUR ---
PT PROGRESSING TOWARDS GOALS. PAIN CONTROLLED WITH PRN PAIN MEDICATION. TOLERATING HER DIET WELL WITHOUT NAUSEA OR VOMITING. HOLDING OFF ON DC TODAY DUE TO POSITIVE BLOOD CULTURES. VASCULAR NOTIFIED OF POTENTIAL NEED TO REMOVE PATIENTS PORT A CATH. SPOKE WITH REED JACKSON WITH VASCULAR. PLAN FOR NPO AFTER MIDNIGHT IN THE EVENT VASCULAR CHOOSES TO DO A PROCEDURE TOMORROW. PATIENT REPOSITIONED FOR COMFORT. HOURLY ROUNDING CHARTED. CALL LIGHT WITHIN REACH. WILL CONTINUE TO MONITOR.
[2017-10-12] VITALS: BP 126/76
[2017-10-12 04:00] VITALS: BP 113/79
--- NOTE | 2017-10-12 04:30 | NUR ---
ASSUMED CARE OF PT AT 1930, NURSING ASSESSMENT COMPLETED AT START OF SHIFT, PT VOICED NO CONCERNS, PT CONTINUES ON TELE MONITOR, TRACING ATRIAL FLUTTER. HOURLY ROUNDING COMPLETED, Q2H REPOSITIONING COMPLETED, CALL LIGHT WITHIN REACH. PRN TRAMADOL GIVEN X2 THIS SHIFT FOR PAIN, PT REPORTED PARTIAL RELIEF. CALL LIGHT WITHIN REACH.
[2017-10-12 05:41] LABS: HEMATOCRIT 26.5 % (37.0-47.0); MPV 9.2 fl. (7.2-11.1); NUCLEATED RBCS 1 /100WBC; RDW-CV 17.1 % (10.5-14.5)
[2017-10-12 05:43] LABS: HEMOGLOBIN 8.4 gm/dL (12.0-15.0); MCH 27.9 pg (26.0-34.0); MCHC 31.7 g/dL (28.0-37.0); MCV 88.1 fL (80.0-100.0); PLATELET COUNT* 178 thou/uL (150-400); RBC 3.01 mil/uL (4.20-5.00); WBC 10.9 thou/uL (4.0-11.0)
[2017-10-12 05:55] LABS: PREALBUMIN 28.9 mg/dL (18.0-35.7)
[2017-10-12 06:07] LABS: ALBUMIN 2.1 g/dL (3.4-5.0); CALCIUM 8.2 mg/dL (8.5-10.1); CREATININE 0.6 mg/dL (0.6-1.3); POTASSIUM 3.6 mmol/L (3.5-5.1); TOTAL BILIRUBIN 12.2 mg/dL (<0.1-1.0)
[2017-10-12 06:26] LABS: ABSOLUTE EOSINOPHILS 0.1 thou/uL (0.0-0.7); ABSOLUTE LYMPHOCYTES 0.9 thou/uL (0.8-5.3); ABSOLUTE MONOCYTES 0.3 thou/uL (0.0-1.2); ABSOLUTE NEUTROPHILS 9.6 thou/uL (1.6-8.1); ANISOCYTOSIS 2+; PLATELET ESTIMATE ADEQUATE
[2017-10-12 06:27] LABS: POLYCHROMASIA 1+
[2017-10-12 08:30] VITALS: BP 118/71
--- NOTE | 2017-10-12 11:21 | NUR ---
CONSULTED TO ACCESS PT PORT A CATH AND REMOVE PICC LINE. RIGHT CHEST PORT A CATH ACCESSED WTIH OUT DIFFICULTY. GOOD BRISK BLOOD RETURN NOTED AND FLUSHED WITH EASE. PRIMARY PIGGYBACK THAT WAS RUNNING THRU PICC SWITCHED TO RUN IN PORT A CATH. TRIPPLE LUMAN PICC LINE RIGHT UPPER BASILIC REMOVED WITH OUT DIFFICULTY USING STERILE TECHNIQUE. ENTIRE PICC PLACED IN STERILE SPECIMEN CUP. STERILE 4X4 FOR DRESSING TO PICC SITE. PICC LINE TAKEN TO LAB FOR CULTURE. TOLERAETD WELL. DENIES OTHER NEEDS AT THIS TIME. AT BEDSIDE. ONEL MENDOZA RN AWARE OF PORT ACCESS AND PICC REMOVAL.
[2017-10-12 12:00] VITALS: BP 107/59
[2017-10-12] MEDS ORDERED: ARTIFICIAL TEA1 EACH OPHTHALMIC (13:09)
[2017-10-12] MEDS ORDERED: DULCOLAX5 MG PO (13:11)
--- NOTE | 2017-10-12 13:12 | NUR ---
Pt discharging to [facility] today, ambulance to [facility] at 3pm. Faxed dc orders. Chart copied. Nurse report number provided, . Updated Pt's in room. Pt will be accepted under the care of Dr Swanson.
[2017-10-12] MEDS ORDERED: BROVANA15 MCG/2 M INH (13:14)
[2017-10-12] MEDS ORDERED: CARAFATE 1 GM TA1 G1 PO (13:15)
[2017-10-12] MEDS ORDERED: CLONIDINE0.1 TRANSDERM (13:17)
[2017-10-12] MEDS ORDERED: BENADRYL25 MG PO (13:19)
[2017-10-12] MEDS ORDERED: ERGOCALCIF50000 UNIT PO (13:22)
[2017-10-12] MEDS ORDERED: FLORANEX TABLE1 EACH PO (13:25)
[2017-10-12] MEDS ORDERED: ENOXAPARIN150 MG/11 SUBQ (13:27)
[2017-10-12] MEDS ORDERED: PROTONIX 20 MG20 M1 PO (13:31)
[2017-10-12] MEDS ORDERED: ROBITUSSIN100 MG/53 PO (13:32)
[2017-10-12] MEDS ORDERED: POTASSIUM IV (13:42)
[2017-10-12] MEDS ORDERED: MAGOX 400400 MG PO (13:47)
[2017-10-12] MEDS ORDERED: MAGNESIUM IV (13:50)
[2017-10-12] MEDS ORDERED: HYDRALAZINE HCL IV (13:58)
[2017-10-12] MEDS ORDERED: FUROSEMIDE IV (13:59)
[2017-10-12] MEDS ORDERED: HUMALOG100 UNIT/1 SUBQ (14:00)
[2017-10-12] MEDS ORDERED: MAXIPIME2 GM IV (14:04)
[2017-10-12] MEDS ORDERED: MYCAMINE100 MG IV (14:04)
[2017-10-12] MEDS ORDERED: ONDANSETRON2 MG/1 ML IV (14:06)
[2017-10-12] MEDS ORDERED: TOPROL XL25 MG PO (14:07)
[2017-10-12] MEDS ORDERED: TRAMADOL 50 MG50 MG PO (14:08)
[2017-10-12] MEDS ORDERED: VANCOMYCIN5 GM/VIAL PO (14:09)
[2017-10-12] MEDS ORDERED: VANCOMYCIN1.25 GM/21 IVPB (14:11)
[2017-10-12] MEDS ORDERED: K-PHOS NEUTRAL PO (14:19)
[2017-10-12] MEDS ORDERED: DUONEB 2.5-0.5 M3 ML INH (14:21)
--- NOTE | 2017-10-12 16:00 | NUR ---
PT WITH DC ORDER TO LT[facility]. TELE MONITOR AND PERIPHERAL IV DC'D. PT ABLE TO COMMUNICATE NEEDS TO STAFF. PRN PAIN MED GIVEN PER DEC. TRANSPORT STAFF TO FOR TRANSFER. PT TRANSFERRED TO [facility] WITH ASSIST OF NURSING STAFF AND TRANSPORT STAFF. PT'S SPOUSE AT AND IS IN POSSESSION OF ALL PT BELONGINGS. PT LEFT UNIT ON [facility] WITH ASSIST OF TRANSPORT STAFF VIA AMBULANCE AT 1540.
== END 2017-10-12 15:25 | DRG 870 ==
LOC: M.ERS 17:22 → M.TBA-ER 18:47 → M.ICU 18:47 → M.2W 09-19 18:31 → M.ICU 09-21 10:13 → M.2W 10-05 14:55
PROVIDERS: Emergency Medicine; Family Medicine; Internal Medicine; Internal Medicine Critical Care Medicine; Internal Medicine Hematology & Oncology; Internal Medicine Nephrology; Internal Medicine Pulmonary Disease; Nurse Practitioner Adult Health; Specialist; Surgery; ADMIT Internal Medicine
PROC: B244YZZ Ultrasonography of Right Heart using Other Contrast (ICD-10-PCS; 2017-09-18)
PROC: 02H633Z Insertion of Infusion Device into Right Atrium, Percutaneous Approach (ICD-10-PCS; 2017-09-18)
PROC: 5A1D70Z Performance of Urinary Filtration, Intermittent, Less than 6 Hours Per Day (ICD-10-PCS; 2017-09-19)
PROC: 02HV33Z Insertion of Infusion Device into Superior Vena Cava, Percutaneous Approach (ICD-10-PCS; 2017-09-21)
PROC: B548ZZA Ultrasonography of Superior Vena Cava, Guidance (ICD-10-PCS; 2017-09-21)
PROC: 5A1955Z Respiratory Ventilation, Greater than 96 Consecutive Hours (ICD-10-PCS; 2017-09-21)
PROC: 0FB03ZX Excision of Liver, Percutaneous Approach, Diagnostic (ICD-10-PCS; 2017-09-21)
PROC: 0F9430Z Drainage of Gallbladder with Drainage Device, Percutaneous Approach (ICD-10-PCS; principal; 2017-09-27)
PROC: 30233N1 Transfusion of Nonautologous Red Blood Cells into Peripheral Vein, Percutaneous Approach (ICD-10-PCS; 2017-10-04)
PROC: 0DJ08ZZ Inspection of Upper Intestinal Tract, Via Natural or Artificial Opening Endoscopic (ICD-10-PCS; 2017-10-05)
PROC: 0F24X0Z Change Drainage Device in Gallbladder, External Approach (ICD-10-PCS; 2017-10-09)
DX: A41.9 Sepsis, unspecified organism (principal); J96.21 Acute and chronic respiratory failure with hypoxia; N17.0 Acute kidney failure with tubular necrosis; I21.4 Non-ST elevation (NSTEMI) myocardial infarction; J18.9 Pneumonia, unspecified organism; N18.6 End stage renal disease; K72.00 Acute and subacute hepatic failure without coma; G92 Toxic encephalopathy; J96.22 Acute and chronic respiratory failure with hypercapnia; E44.0 Moderate protein-calorie malnutrition; I50.32 Chronic diastolic (congestive) heart failure; I48.92 Unspecified atrial flutter; I42.9 Cardiomyopathy, unspecified; L03.116 Cellulitis of left lower limb; L03.115 Cellulitis of right lower limb; F11.20 Opioid dependence, uncomplicated; N39.0 Urinary tract infection, site not specified; C90.00 Multiple myeloma not having achieved remission; K80.10 Calculus of gallbladder with chronic cholecystitis without obstruction; L97.909 Non-pressure chronic ulcer of unspecified part of unspecified lower leg with unspecified severity; A04.72 Enterocolitis due to Clostridium difficile, not specified as recurrent; Z68.43 Body mass index [BMI] 50.0-59.9, adult; I13.2 Hypertensive heart and chronic kidney disease with heart failure and with stage 5 chronic kidney disease, or end stage renal disease; E78.5 Hyperlipidemia, unspecified; E86.0 Dehydration; R10.9 Unspecified abdominal pain; R21 Rash and other nonspecific skin eruption; E83.42 Hypomagnesemia; I89.0 Lymphedema, not elsewhere classified; G60.9 Hereditary and idiopathic neuropathy, unspecified; G47.33 Obstructive sleep apnea (adult) (pediatric); G89.4 Chronic pain syndrome; E66.01 Morbid (severe) obesity due to excess calories; K21.9 Gastro-esophageal reflux disease without esophagitis; M10.9 Gout, unspecified; E80.6 Other disorders of bilirubin metabolism; I87.8 Other specified disorders of veins; I48.2 Chronic atrial fibrillation; J44.9 Chronic obstructive pulmonary disease, unspecified; D64.9 Anemia, unspecified; D69.6 Thrombocytopenia, unspecified; R31.9 Hematuria, unspecified; R74.0 Nonspecific elevation of levels of transaminase and lactic acid dehydrogenase [LDH]; S80.822A Blister (nonthermal), left lower leg, initial encounter; N63.0 Unspecified lump in unspecified breast; T21.22XA Burn of second degree of abdominal wall, initial encounter; X58.XXXA Exposure to other specified factors, initial encounter; K75.81 Nonalcoholic steatohepatitis (NASH); K72.90 Hepatic failure, unspecified without coma; Z87.891 Personal history of nicotine dependence; Z79.82 Long term (current) use of aspirin; Z79.899 Other long term (current) drug therapy; Y92.238 Other place in hospital as the place of occurrence of the external cause; Z83.3 Family history of diabetes mellitus; Z82.49 Family history of ischemic heart disease and other diseases of the circulatory system; Z79.01 Long term (current) use of anticoagulants; Z79.52 Long term (current) use of systemic steroids; Z94.89 Other transplanted organ and tissue status; Z88.0 Allergy status to penicillin; Z95.0 Presence of cardiac pacemaker; Z88.2 Allergy status to sulfonamides; Z88.8 Allergy status to other drugs, medicaments and biological substances; Y93.89 Activity, other specified; Y99.8 Other external cause status; Y92.89 Other specified places as the place of occurrence of the external cause; Z90.711 Acquired absence of uterus with remaining cervical stump

== ENCOUNTER 2017-10-29 10:36 | Inpatient (IN) | payer MEDICARE ==
[2017-10-29] VITALS (10 sets, daily range): BP systolic 62–128; BP diastolic 31–68
[~2017-10-29] VITALS: Ht 165.1 cm; Wt 183.9 kg
--- NOTE | ~2017-10-29 | EKG ---
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 : 1960 Requested By: Isreal Laboy Order Number: [id number] Reading MD: Measurements Intervals [place] Rate: 68 P: [place]: QRS: -17 QRSD: 114 T: -44 QT: 387 QTc: 412 Interpretive Statements Junctional rhythm Probable lateral infarct, old Abnrm T, consider ischemia, anterolateral lds Baseline wander in lead(s) I,III,aVR,aVL,aVF,V3 Compared to ECG 10/31/2017 08:12:27 Junctional rhythm now present Possible ischemia now present Atrial fibrillation no longer present Intraventricular conduction delay no longer present Myocardial infarct finding still present [email or web address] By: 0505 050 Epiphany Epiphany, /CUBA
[~2017-10-29 10:36] MED LIST changes: +ARTIFICIAL TEA1 EACH OPHTHALMIC; +BENADRYL25 MG PO; +BROVANA15 MCG/2 M INH; +CARAFATE 1 GM TA1 G1 PO; +CLONIDINE0.1 TRANSDERM; +DULCOLAX5 MG PO; +DUONEB 2.5-0.5 M3 ML INH; +ENOXAPARIN150 MG/11 SUBQ; +ERGOCALCIF50000 UNIT PO; +FLORANEX TABLE1 EACH PO; +FUROSEMIDE IV; +HUMALOG100 UNIT/1 SUBQ; +HYDRALAZINE HCL IV; +K-PHOS NEUTRAL PO; +MAGNESIUM IV; +MAGOX 400400 MG PO; +MAXIPIME2 GM IV; +MYCAMINE100 MG IV; +ONDANSETRON2 MG/1 ML IV; +POTASSIUM IV; +PROTONIX 20 MG20 M1 PO; +ROBITUSSIN100 MG/53 PO; +TOPROL XL25 MG PO; +VANCOMYCIN1.25 GM/21 IVPB; +VANCOMYCIN5 GM/VIAL PO
[2017-10-29 12:40] LABS: HEMATOCRIT 29.2 % (37.0-47.0); HEMOGLOBIN 8.9 gm/dL (12.0-15.0); MCH 27.7 pg (26.0-34.0); MCHC 30.5 g/dL (28.0-37.0); MCV 90.8 fL (80.0-100.0); MPV 7.9 fl. (7.2-11.1); RBC 3.21 mil/uL (4.20-5.00); RDW-CV 18.9 % (10.5-14.5); WBC 22.2 thou/uL (4.0-11.0)
[2017-10-29 12:50] LABS: ANION GAP 19 mmol/L (7-16); BUN 24 mg/dL (7-18); CALCIUM 7.3 mg/dL (8.5-10.1); CHLORIDE 101 mmol/L (98-107); CO2 16 mmol/L (21-32); CREATININE 2.8 mg/dL (0.6-1.3); GLUCOSE 154 mg/dL (70-99); POTASSIUM 3.8 mmol/L (3.5-5.1); SODIUM 136 mmol/L (136-145)
[2017-10-29 12:53] LABS: APTT 52.3 Seconds (25.0-31.3); INR 1.7
[2017-10-29 12:57] LABS: ALBUMIN 1.7 g/dL (3.4-5.0); ALKALINE PHOSPHATASE 401 U/L (46-116); SGOT 31 U/L (15-37); SGPT 29 U/L (30-65); TOTAL BILIRUBIN 2.9 mg/dL (<0.1-1.0); TOTAL PROTEIN 4.7 g/dL (6.4-8.2); TROPONIN-I LEVEL <0.06 ng/mL (<0.06)
[2017-10-29 13:26] LABS: BE -12.1 mmol/L (-2 to +3); PCO2 22.1 mmHg (35.0-45.0); PO2 93.5 mmHg (75.0-100.0); pH 7.345 (7.340-7.450)
[2017-10-29 13:27] LABS: HCO3 11.8 mmol/L (22.0-26.0)
[2017-10-30] VITALS (15 sets, daily range): BP systolic 78–134; BP diastolic 31–54
[2017-10-30 05:57] LABS: ALBUMIN 1.5 g/dL (3.4-5.0); CALCIUM 7.2 mg/dL (8.5-10.1); CREATININE 3.5 mg/dL (0.6-1.3); POTASSIUM 4.1 mmol/L (3.5-5.1); TOTAL BILIRUBIN 2.9 mg/dL (<0.1-1.0); TOTAL PROTEIN 4.8 g/dL (6.4-8.2)
--- NOTE | 2017-10-30 08:44 | CON ---
[address] [address] CONSULTATION Name: SAMI MARCELO Room: [address] IN .R.#: [id number] Admission: 10/29/17 Attend Phys: Fide Palma Discharge: Date of : 56 Report #: [id number] THIS REPORT FOR: //name// CC: MARYANA physician/PCP Seth Reveles DATE OF SERVICE: 10/29/2017 ATTENDING PHYSICIAN: Dr. Reveles. REASON FOR EVALUATION: Sepsis, likely biliary tract source. HISTORY OF PRESENT ILLNESS: Chart reviewed, patient examined. This is a 57-year-old female with extensive medical history given her age, I am well familiar with her, was actually hospitalized in September with abdominal related pain and was found to have obstructive jaundice, underwent placement of cholecystostomy tube. She did slowly improve over the course of a few weeks. She was transitioned ongoing care with no plan, likely needs some sort of intervention, although she has been quite ill and not felt to be a good surgical candidate. She was noted to have clinical worsening. She was hypotensive, found to have lactic acidemia, although her bilirubin is improved and was felt that her cholecystostomy tube has been displaced requiring evaluation and possible replacement. ALLERGIES: PENICILLIN, SULFA, GABAPENTIN, PROMETHAZINE. CURRENT MEDICATIONS: Include ergocalciferol, prednisone, montelukast, pantoprazole, cefepime and vancomycin orally. PAST MEDICAL HISTORY: History of asthma, recurrent C. 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 SOCIAL HISTORY: Nonsmoker, no ethanol. FAMILY HISTORY: Noncontributory. REVIEW OF SYSTEMS: As above. Limited due to her encephalopathy. PHYSICAL EXAMINATION: GENERAL: She is jaundiced, morbidly obese, appears ill, not overtly distressed. VITAL SIGNS: Pending. HEENT: Nasal cannula oxygen. NECK: [place] [address] CONSULTATION Name: SAMI AMRCELO Room: [address]#: [id number] Admission: 10/29/17 Attend Phys: Fide Palma Discharge: Date of : 56 Report #: [id number] LUNGS: Diminished, generally clear. HEART: Regular. I do not appreciate any murmur. ABDOMEN: Soft. She is obese. There is some tenderness to percussion, especially on the right side. GENITOURINARY: Deferred. RECTAL: Deferred. LABORATORY DATA: Chest x-ray, linear atelectasis in the left lingula. CT of the pelvis, gallbladder distention with vicarious excretion of contrast into the gallbladder and gallbladder wall thickening, adjacent fat stranding. ABGs: A pH 7.345, pCO2 of 22.1, pO2 of 93.5, 3 liters. Lactic acid of 7.2. Electrolytes: Sodium 136, potassium 3.8, chloride 101, bicarbonate is 16, anion gap of 19, BUN and creatinine 24 and 2.8, glucose of 154. AST of 31, ALT of 29, total bilirubin of 2.9, albumin of 1.7, total protein of 4.7. CBC: White count of 22.2, H and H 8.9 and 29.2, platelets of 344. ASSESSMENT: Acute cholecystitis in the patient who got a significant disease burden, certainly high risk for any sort of invasive procedure. We will continue with empiric antimicrobial therapy pending percutaneous drainage. Certainly risk for nosocomial related infectious complications. I think her prognosis is quite guarded. <ELECTRONICALLY SIGNED> By: Jorge Levy MD 10/30/17 0844 [id number] 1840Joalexander Levy MD /nt
--- NOTE | 2017-10-30 11:23 | CON ---
[address] [address] CONSULTATION Name: SAMI MARCELO Room: [address] IN M.R.#: [id number] Admission: 10/29/17 Attend Phys: Fide Palma Discharge: Date of : 56 Report #: [id number] THIS REPORT FOR: //name// CC: MARYANA physician/PCP Seth Reveles DATE OF SERVICE: 10/29/2017 CONSULTING PHYSICIAN: Seth Reveles DO REASON FOR CONSULTATION: Anuria. HISTORY OF PRESENT ILLNESS: A 57-year-old female who had a prolonged hospital stay here and was discharged about 2 weeks ago with sepsis, pneumonia, multiorgan dysfunction with respiratory failure requiring intubation, acute kidney injury requiring dialysis and liver failure with a biliary drain placed. She was eventually discharged to [facility], came off dialysis and was discharged with a creatinine of 0.6 on 10/12/2017. At [facility], her biliary drain became dislodged, the patient's blood pressure dropped, she had some increased oxygen requirement and poor urine output and was transferred back to [facility] for further evaluation. I am consulted because she has had poor urine output since these events have taken place. Labs are not yet available. REVIEW OF SYSTEMS: Constitutional, psych, heme, eyes, ENT, respiratory, cardiac, GI, , endocrine all negative except as documented above. PAST MEDICAL HISTORY: As described above, in addition steroid-dependent asthma, history of pacemaker, dyslipidemia, AFib/atrial flutter, history of Clostridium difficile with a fecal transplant in 03/2016 at [facility], history of adnexal mass, lymphedema, avascular necrosis, partial hysterectomy. SOCIAL HISTORY: Denies tobacco. FAMILY HISTORY: Not pertinent in this 57-year-old female. PHYSICAL EXAMINATION: VITAL SIGNS: Reviewed. GENERAL: No distress. EYES: Opens eyes. EARS: Externally normal. CARDIOVASCULAR: Regular rate. LUNGS: Diminished breath sounds. ABDOMEN: Soft, obese. LYMPHATICS: Nontender. PSYCHIATRIC: She is awake. She is alert. She is able to answer questions. She is oriented to person, place and she can [place] [address] CONSULTATION Name: SAMI MARCELO Room: [address] IN [facility]#: [id number] Admission: 10/29/17 Attend Phys: Fide Palma Discharge: Date of : 56 Report #: [id number] LABORATORY DATA: Labs are all pending. ASSESSMENT: 1. Acute kidney injury with reported anuria. By report, she made 75 mL of urine and did receive some fluids. When she was previously hospitalized, she had a creatinine of 3.3. When she was just hospitalized here in and she was on dialysis for a period of time, her creatinine came down 0.6 on 10/12/2017 and she was no longer dialysis dependent at the time of discharge. This occurred in the setting of sepsis and Lasix use. Previous imaging of kidneys was unremarkable. 2. 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 3. History of atrial fibrillation/atrial flutter with an ejection fraction of 65-70% in 06/2016 and a PA pressure of 21. 4. History of obstructive sleep apnea. 5. History of steroid dependent asthma. 6. Recent history of sepsis, multiorgan failure, respiratory failure, and biliary drain placement. 7. Shock. PLAN: Labs have been ordered. The patient does have evidence of shock and is on Levophed at present time. She has had poor urine output. We will await lab results and have those called to me. If laboratory work reveals indications for dialysis, the patient is okay with proceeding per my conversation with her. There are no present indications for dialysis. She is to go for a CT abdomen and Interventional Radiology is to follow up to have the biliary drain repositioned/replaced. We will follow closely and check labs in the a.m. Thank you for requesting my opinion in the care and management of this patient. <ELECTRONICALLY SIGNED> By: Riddhi Campo MD 10/30/17 1123 1314 [id number] Dayanara Haywood MD /nt
[2017-10-30 13:12] LABS: BE -12.9 mmol/L (-2 to +3); HCO3 12.2 mmol/L (22.0-26.0); PCO2 25.8 mmHg (35.0-45.0)
[2017-10-30 13:13] LABS: pH 7.291 (7.340-7.450)
[2017-10-30 13:14] LABS: PO2 226.1 mmHg (75.0-100.0)
[2017-10-30 13:46] LABS: URINE BLOOD 2+ (Negative); URINE CLARITY SL CLOUDY; URINE COLOR DARK YELLOW; URINE GLUCOSE-RANDOM NEGATIVE (Negative); URINE KETONES TRACE (Negative); URINE LEUKOCYTES 2+ (Negative); URINE NITRITE NEGATIVE (Negative); URINE PROTEIN 2+ (Negative); URINE UROBILINOGEN 0.2 E.U./dl (0.2-1.0)
[2017-10-30 13:48] LABS: URINE BILIRUBIN 2+ (Negative)
[2017-10-30 13:50] LABS: ICTOTEST (BILI CONFIRMATORY) Negative (Negative)
[2017-10-30 14:52] LABS: BACTERIA 1-9 Few /HPF (None Seen); CASTS None Seen /LPF (None Seen); CRYSTALS None Seen /LPF (None Seen); MUCUS None Seen strn/LPF (None Seen); SQUAMOUS 4-10 Moderate /LPF (0-3); URINE RBC 3-10 Few /HPF (0-2); URINE WBC 6-15 Few /HPF (0-5)
[2017-10-31] VITALS (24 sets, daily range): BP systolic 88–1013; BP diastolic 43–66
[2017-10-31 05:14] LABS: HEMATOCRIT 30.1 % (37.0-47.0); HEMOGLOBIN 8.6 gm/dL (12.0-15.0); MCH 27.8 pg (26.0-34.0); MCHC 28.6 g/dL (28.0-37.0); MPV 8.2 fl. (7.2-11.1); RBC 3.09 mil/uL (4.20-5.00); RDW-CV 19.7 % (10.5-14.5); WBC 29.5 thou/uL (4.0-11.0)
[2017-10-31 05:53] LABS: CREATININE 3.5 mg/dL (0.6-1.3)
[2017-10-31 06:15] LABS: BE -19.3 mmol/L (-2 to +3); PO2 103.1 mmHg (75.0-100.0)
[2017-10-31 06:17] LABS: HCO3 8.2 mmol/L (22.0-26.0); pH 7.133 (7.340-7.450)
[2017-10-31 06:19] LABS: MCV 97.2 fL (80.0-100.0)
[2017-10-31 06:20] LABS: POTASSIUM 5.2 mmol/L (3.5-5.1)
[2017-10-31 06:21] LABS: CALCIUM 5.7 mg/dL (8.5-10.1)
[2017-10-31 11:03] LABS: ALBUMIN 1.1 g/dL (3.4-5.0); CREATININE 3.3 mg/dL (0.6-1.3); PHOSPHORUS* 6.8 mg/dL (2.5-4.9); POTASSIUM 4.6 mmol/L (3.5-5.1)
[2017-10-31 11:08] LABS: CALCIUM 5.5 mg/dL (8.5-10.1)
[2017-10-31 13:12] LABS: ALBUMIN 1.1 g/dL (3.4-5.0); TOTAL BILIRUBIN 3.5 mg/dL (<0.1-1.0); TOTAL PROTEIN 4.2 g/dL (6.4-8.2)
[2017-10-31 14:27] LABS: ALBUMIN 1.1 g/dL (3.4-5.0); CREATININE 3.2 mg/dL (0.6-1.3); MAGNESIUM 2.5 mg/dL (1.8-2.4); PHOSPHORUS* 5.9 mg/dL (2.5-4.9); POTASSIUM 4.1 mmol/L (3.5-5.1)
[2017-10-31 14:29] LABS: CALCIUM 5.5 mg/dL (8.5-10.1)
--- NOTE | 2017-10-31 15:46 | EKG ---
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1960 Requested By: Ilda Ball Order Number: [id number] Josh MD: Isreal Laboy Measurements Intervals [place] Rate: 76 P: [place]: QRS: -18 QRSD: 118 T: -40 QT: 408 QTc: 459 Interpretive Statements Atrial fibrillation Nonspecific intraventricular conduction delay Low voltage, precordial leads Consider anterior infarct Borderline repolarization abnormality Compared to ECG 10/09/2017 00:56:32 Intraventricular conduction delay now present Low QRS voltage now present Myocardial infarct finding now present Ventricular-paced complex(es) or rhythm no longer present Electronically Signed On 10-31-2017 15:45:56 PRODUCT SAFETY TESTER by Isreal Laboy [email or web address] <ELECTRONICALLY SIGNED> By: Isreal Laboy MD, [facility] 10/31/17 1545 08 0812 Isreal Laboy MD, FAC /EPI
[2017-10-31 15:56] LABS: BE -14.6 mmol/L (-2 to +3); PCO2 24.2 mmHg (35.0-45.0); PO2 105.2 mmHg (75.0-100.0)
[2017-10-31 15:59] LABS: HCO3 10.8 mmol/L (22.0-26.0); pH 7.267 (7.340-7.450)
[2017-10-31 19:26] LABS: ALBUMIN 1.1 g/dL (3.4-5.0); CREATININE 3.2 mg/dL (0.6-1.3); MAGNESIUM 2.6 mg/dL (1.8-2.4); PHOSPHORUS* 5.7 mg/dL (2.5-4.9); POTASSIUM 4.2 mmol/L (3.5-5.1)
[2017-10-31 19:31] LABS: CALCIUM 5.8 mg/dL (8.5-10.1)
[2017-10-31 22:31] LABS: ALBUMIN 1.1 g/dL (3.4-5.0); CALCIUM 6.3 mg/dL (8.5-10.1); CREATININE 3.3 mg/dL (0.6-1.3); MAGNESIUM 2.6 mg/dL (1.8-2.4); PHOSPHORUS* 5.9 mg/dL (2.5-4.9); POTASSIUM 4.4 mmol/L (3.5-5.1)
[2017-11-01 01:46] LABS: ALBUMIN 1.1 g/dL (3.4-5.0); CALCIUM 6.3 mg/dL (8.5-10.1); CREATININE 3.3 mg/dL (0.6-1.3); MAGNESIUM 2.5 mg/dL (1.8-2.4); PHOSPHORUS* 5.8 mg/dL (2.5-4.9); POTASSIUM 4.6 mmol/L (3.5-5.1)
[2017-11-01 06:09] LABS: HEMATOCRIT 26.2 % (37.0-47.0); HEMOGLOBIN 8.4 gm/dL (12.0-15.0); MCH 28.2 pg (26.0-34.0); MCHC 32.1 g/dL (28.0-37.0); MPV 7.7 fl. (7.2-11.1); NUCLEATED RBCS 3 /100WBC; RBC 2.99 mil/uL (4.20-5.00); RDW-CV 18.5 % (10.5-14.5); WBC 23.3 thou/uL (4.0-11.0)
[2017-11-01 06:18] LABS: BE -15.2 mmol/L (-2 to +3); PCO2 20.9 mmHg (35.0-45.0)
[2017-11-01 06:22] LABS: PO2 137.3 mmHg (75.0-100.0); pH 7.286 (7.340-7.450)
[2017-11-01 06:23] LABS: HCO3 9.7 mmol/L (22.0-26.0)
[2017-11-01 06:23] LABS: ALBUMIN 1.1 g/dL (3.4-5.0); CALCIUM 6.1 mg/dL (8.5-10.1); CREATININE 3.4 mg/dL (0.6-1.3); PHOSPHORUS* 6.5 mg/dL (2.5-4.9); TOTAL BILIRUBIN 4.1 mg/dL (<0.1-1.0); TOTAL PROTEIN 4.1 g/dL (6.4-8.2)
[2017-11-01 06:24] LABS: MCV 87.7 fL (80.0-100.0)
[2017-11-01 07:18] LABS: ABSOLUTE LYMPHOCYTES 0.5 thou/uL (0.8-5.3); ABSOLUTE MONOCYTES 1.6 thou/uL (0.0-1.2); ABSOLUTE NEUTROPHILS 21.2 thou/uL (1.6-8.1)
[2017-11-01 07:19] LABS: ANISOCYTOSIS 1+; PLATELET COUNT* 83 thou/uL (150-400); PLATELET ESTIMATE DECREASED; POIKILOCYTOSIS 1+; POLYCHROMASIA 1+
[2017-11-01 10:07] LABS: ALBUMIN 1.1 g/dL (3.4-5.0); CREATININE 3.5 mg/dL (0.6-1.3); MAGNESIUM 2.5 mg/dL (1.8-2.4); PHOSPHORUS* 6.9 mg/dL (2.5-4.9); POTASSIUM 5.2 mmol/L (3.5-5.1)
--- NOTE | 2017-11-01 13:20 | CON ---
[address] [address] CONSULTATION Name: SAMI MARCELO Room: [address] IN ..#: [id number] Admission: 10/29/17 Attend Phys: Fide Palma Discharge: Date of : 56 Report #: [id number] THIS REPORT FOR: //name// CC: MARYANA physician/PCP Seth Reveles DATE OF SERVICE: 10/30/2017 REASON FOR CONSULTATION: Respiratory failure, sepsis. HISTORY OF PRESENT ILLNESS: The patient is a 57-year-old female patient with a background history of severe asthma and steroid dependent with multiple medical problems in addition to obstructive sleep apnea, on BiPAP. Per the office records, her BiPAP setting is 12/8. She has a background history of atrial fibrillation and flutter, morbid obesity, fibromyalgia. She was hospitalized at this facility in August and September with sepsis at that time. She was in acute respiratory failure. She was intubated for prolonged periods of time. She had fungemia at that time and cholecystitis with drain placed. At that time, she had also deconditioning. She had cellulitis and chronic diastolic heart failure in addition to pneumonitis and sepsis. She was discharged to LTAC facility and apparently the tube and the gallbladder was lodged out and they tried to place it at [facility] without luck. She was transferred to our facility where she had a cholecystostomy tube placement. During this hospitalization, she had been in severe septic shock, hypotensive. She was requiring vasopressors and actually now she is on maximum of dopamine and Levophed as vasopressors. This morning, her mental status had been deteriorating, she looked confused to me, she would moan, eyes open, but she would not track with her eyes. Her at the bedside, he agrees she was confused. She is seen by Nephrology for acute renal failure during this hospitalization and she is currently on bicarb drip. ALLERGIES: PENICILLIN, GABAPENTIN, SULFA, PHENERGAN (PROMETHAZINE). MEDICATIONS: At the current hospitalization, she was on Brovana, Dulcolax, Floranex, clonidine, Lasix, cefepime, prednisone 20 mg daily, albuterol, guaifenesin, Zofran, tramadol, Singulair and DuoNebs. PAST MEDICAL HISTORY: Asthma, C. diff status post fecal transplant, recent hospitalization with severe septic shock and acute renal failure and respiratory failure, atrial flutter with AFib, history of cellulitis recently, hyperlipidemia, multiple C. diff infection ____, pacemaker placement, severe asthma and ____ dependent, lymphedema, avascular necrosis of the bone. PAST SURGICAL HISTORY: Includes right knee surgery, left knee surgery, [place] [address] CONSULTATION Name: SAMI MARCELO Room: [address] IN [facility]#: [id number] Admission: 10/29/17 Attend Phys: Fide Palma Discharge: Date of : 56 Report #: [id number] shoulder surgery, partial hysterectomy. She has history of pacemaker placement, ablation, Port-A-Cath placement. SOCIAL HISTORY: Does not smoke. Does not drink alcohol excessively. Recently was at rehab facility and readmitted from there. FAMILY HISTORY: Noncontributory. REVIEW OF SYSTEMS: Unobtainable at this point due to the patient's medical condition. She is confused, lethargic. PHYSICAL EXAMINATION: VITAL SIGNS: On examination, she is on 3 vasopressors, blood pressure 96/57, pulse rate of 84, her temperature is 37.6 this morning. GENERAL: Obese lady, eyes open, but does not track. Seems to be confused in the morning, at occasion mumbling some words although earlier she was speaking sometimes to the nurse, looks sick. HEENT: Head normocephalic. Pupils reactive to light. External ear looks healthy and normal. NECK: Supple. CHEST: Diminished air movements bilaterally. No definite wheezes today, some crackles at the bases. HEART: S1, S2. ABDOMEN: Obese, tenderness in epigastric and right upper quadrant area. She has cholecystectomy drainage tube in the right upper quadrant. No definite rigidity. Could not feel masses due to her body habitus. LOWER EXTREMITIES: Lymphedema and edema noted bilaterally equally. SKIN: Mottling noted in the lower extremities. PSYCHIATRIC: Mood and affect could not be evaluated. NEUROLOGIC: She is confused, although some movements noted in the extremities. LABORATORY DATA: Her white blood count is 22.2, hemoglobin 8.7 and platelets of 344. Her creatinine 3.5, bicarbonate 18, was 16 earlier and potassium 4.1. Sodium 133. ABGs yesterday 7.34/ and this was done on 3 liter oxygen. She had 2 chest x-rays during this hospitalization and showed patchy bilateral atelectasis. She had a CT abdomen that demonstrates distention of the gallbladder and excretion of contrast into the gallbladder and gallbladder wall thickening. IMPRESSION: 1. Severe septic shock. 2. Acute respiratory failure. 3. Acute renal failure. 4. Hypotension. 5. Skin mottling. 6. Cholecystitis status post [place]olecyst[place] [address] CONSULTATION Name: SAMI MARCELO Room: [address]#: [id number] Admission: 10/29/17 Attend Phys: Fide Palma Discharge: Date of : 56 Report #: [id number] The patient has very severe septic shock, on multiple vasopressors. She had multi-organ failure with renal failure, cardiovascular compromise and hypotension, mental status change and worsening respiratory status. I did discuss in detail with the that with increased work of breathing and multi-organ failure, intubation is recommended to help with her work of breathing. actually agreed to proceed and earlier was discussed with Dr. Reveles. The patient expressed her desire to be full code and okay to be intubated. I would recommend at this point for the patient to be intubated on semi-elective basis rather than urgent basis to have the best chance. I did mention to the that she is extremely ill, although intubation and mechanical ventilation is recommended, but there is no guarantee. The patient has multi-organ failure at this point. CONDITION: Critical. PROGNOSIS: Guarded. . <ELECTRONICALLY SIGNED> By: Delfina Chino MD 11/01/17 1320 1059 [id number] Chino MD /nt
[2017-11-01 16:49] LABS: CALCIUM 6.1 mg/dL (8.5-10.1); CREATININE 3.5 mg/dL (0.6-1.3); POTASSIUM 5.5 mmol/L (3.5-5.1)
[2017-11-02] VITALS (20 sets, daily range): BP systolic 88–182; BP diastolic 45–79
[2017-11-02 04:48] LABS: BE -18.2 mmol/L (-2 to +3)
[2017-11-02 04:51] LABS: HCO3 7.5 mmol/L (22.0-26.0); PCO2 18.4 mmHg (35.0-45.0); PO2 141.4 mmHg (75.0-100.0); pH 7.228 (7.340-7.450)
[2017-11-02 05:52] LABS: ABSOLUTE BASOPHILS 0.1 thou/uL (0.0-0.2); ABSOLUTE LYMPHOCYTES 6.1 thou/uL (0.8-5.3); ABSOLUTE MONOCYTES 0.3 thou/uL (0.0-1.2); ABSOLUTE NEUTROPHILS 16.9 thou/uL (1.6-8.1); BASOPHILS 0.5 %; EOSINOPHILS 0.1 %; HEMATOCRIT 26.1 % (37.0-47.0); HEMOGLOBIN 8.3 gm/dL (12.0-15.0); MCH 28.2 pg (26.0-34.0); MCHC 31.9 g/dL (28.0-37.0); MCV 88.5 fL (80.0-100.0); MONOCYTES 1.3 %; MPV 8.3 fl. (7.2-11.1); NUCLEATED RBCS 2 /100WBC; PLATELET COUNT* 56 thou/uL (150-400); POLYS 72.1 %; RBC 2.95 mil/uL (4.20-5.00); RDW-CV 18.3 % (10.5-14.5); WBC 23.4 thou/uL (4.0-11.0)
[2017-11-02 06:03] LABS: PROTIME 105.7 Seconds (9.20-11.50)
[2017-11-02 06:14] LABS: ALBUMIN 1.1 g/dL (3.4-5.0); CREATININE 3.7 mg/dL (0.6-1.3); POTASSIUM 5.6 mmol/L (3.5-5.1); TOTAL BILIRUBIN 5.1 mg/dL (<0.1-1.0); TOTAL PROTEIN 4.2 g/dL (6.4-8.2)
[2017-11-02 06:21] LABS: CALCIUM 5.9 mg/dL (8.5-10.1)
[2017-11-02 06:22] LABS: INR 11.3
[2017-11-02 07:49] LABS: URINE BLOOD 3+ (Negative); URINE COLOR DARK YELLOW; URINE GLUCOSE-RANDOM TRACE (Negative); URINE KETONES NEGATIVE (Negative); URINE LEUKOCYTES NEGATIVE (Negative); URINE NITRITE NEGATIVE (Negative); URINE PROTEIN 3+ (Negative); URINE SPECIFIC GRAVITY 1.025 (1.005-1.030); URINE UROBILINOGEN 0.2 E.U./dl (0.2-1.0)
[2017-11-02 07:50] LABS: ICTOTEST (BILI CONFIRMATORY) Positive (Negative); URINE BILIRUBIN 2+ (Negative); URINE CLARITY CLOUDY
[2017-11-02 07:58] LABS: MUCUS 0-3 Light strn/LPF (None Seen); SQUAMOUS 0-3 Few /LPF (0-3); URINE RBC 3-10 Few /HPF (0-2); URINE WBC 0-5 Rare /HPF (0-5)
[2017-11-02 07:59] LABS: CASTS None Seen /LPF (None Seen)
[2017-11-02 08:00] LABS: AMORPHOUS URATES Few /LPF (None Seen)
[2017-11-02 10:54] LABS: PROTIME 47.8 Seconds (9.20-11.50)
--- NOTE | 2017-11-02 14:41 | OP ---
[facility] [address] [place] [address] OPERATIVE REPORT Name: SAMI MARCELO Room: [address] IN .R.#: [id number] Admission: 10/29/17 Attend Phys: Fide Palma Discharge: Date of : 56 Report #: [id number] THIS REPORT FOR: //name// CC: MARYANA physician/PCP Seth Reveles DATE OF SERVICE: 11/02/2017 PREOPERATIVE DIAGNOSIS: Sepsis, in need of emergent dialysis. POSTOPERATIVE DIAGNOSIS: Sepsis, in need of emergent dialysis. PROCEDURE: 1. Ultrasound guidance for venous access, right common femoral vein with image saved. 2. Temporary dialysis catheter placement of right common femoral vein. SURGEON: Flavio Oglesby MD. DITCH CLEANER: None. ANESTHESIA: Local with sedation. COMPLICATIONS: None. ESTIMATED BLOOD LOSS: 250 mL. INDICATIONS FOR PROCEDURE: The patient is a 57-year-old white female who is septic. She needs emergent dialysis. She is morbidly obese. Her INR was elevated and she has received vitamin K and FFP. I planned to place his catheter during the infusion of last unit of her FFP. Informed consent was obtained from her with risks including, but not limited to bleeding, infection, need for further surgery, pain, , heart attack, stroke. He understood these risks, was agreeable to proceed. At the patient's bedside, I retracted her pannus with assistance of medical student. I prepped and draped her right groin in usual sterile fashion. Under ultrasound guidance with image saved, I cannulated the right common femoral vein without difficulty. I used a Seldinger technique to exchange out for the dilator and then the sheath. I removed the dilator from the sheath; however, the sheath kinked and I could not pass my catheter. There was a moderate amount of bleeding at this point in time. The patient became somewhat unstable. Blood pressure dropped from 90 systolic to 70 systolic. I replaced the wire and the dilator for the sheath and placed my finger over the hole to stop the bleeding. We gave her some fluid and ordered some blood stat. She recovered relatively quickly with resuscitation. I called IR for a stiffer wire [place] [address] OPERATIVE REPORT Name: SAMI MARCELO Room: [address] IN [facility].#: [id number] Admission: 10/29/17 Attend Phys: Fide Palma Discharge: Date of : 56 Report #: [id number] wire, I replaced the wire in the sheath. I was unable to pass the catheter over the stiff wire plus the second wire up into the central venous structures. I removed the peel away sheath around the catheter. Both ports flushed without difficulty. I secured the catheter to the groin with pulling stitch. Of note, I used a cupped catheter, although I did not tunnel it as the longer length temporary catheters are currently on back order, we do not have them available. Valley catheter would not have been useful for dialysis. I packed the catheter with 1000 units of heparin. Catheter is ready for use. <ELECTRONICALLY SIGNED> By: Flavio Oglesby MD 11/02/17 1441 1346 [id number] Oglesby MD /nt
[2017-11-02 15:23] LABS: HEMATOCRIT 28.1 % (37.0-47.0); HEMOGLOBIN 9.2 gm/dL (12.0-15.0); MCH 30.1 pg (26.0-34.0); MCHC 32.9 g/dL (28.0-37.0); RBC 3.07 mil/uL (4.20-5.00)
[2017-11-02 15:25] LABS: MCV 91.5 fL (80.0-100.0); MPV 8.1 fl. (7.2-11.1); RDW-CV 17.1 % (10.5-14.5); WBC 20.1 thou/uL (4.0-11.0)
[2017-11-02 15:29] LABS: CREATININE 3.5 mg/dL (0.6-1.3); POTASSIUM 5.4 mmol/L (3.5-5.1)
[2017-11-02 15:31] LABS: CALCIUM 5.9 mg/dL (8.5-10.1)
[2017-11-02 16:14] LABS: PROTIME 16.4 Seconds (9.20-11.50)
[2017-11-02 16:15] LABS: INR 1.7
[2017-11-02 16:29] LABS: BE -13.1 mmol/L (-2 to +3); PCO2 19.2 mmHg (35.0-45.0); PO2 140.8 mmHg (75.0-100.0); pH 7.356 (7.340-7.450)
[2017-11-02 16:30] LABS: HCO3 10.5 mmol/L (22.0-26.0)
[2017-11-02 20:33] LABS: ABSOLUTE EOSINOPHILS 0.2 thou/uL (0.0-0.7); ABSOLUTE LYMPHOCYTES 2.6 thou/uL (0.8-5.3); ABSOLUTE MONOCYTES 0.4 thou/uL (0.0-1.2); BASOPHILS 0.2 %; HEMATOCRIT 26.9 % (37.0-47.0); HEMOGLOBIN 9.1 gm/dL (12.0-15.0); MCV 88.3 fL (80.0-100.0); MONOCYTES 2.5 %; MPV 8.2 fl. (7.2-11.1); NUCLEATED RBCS 3 /100WBC; POLYS 80.3 %; RBC 3.04 mil/uL (4.20-5.00); RDW-CV 17.2 % (10.5-14.5); WBC 16.1 thou/uL (4.0-11.0)
[2017-11-02 20:36] LABS: PLATELET COUNT* 39 thou/uL (150-400)
[2017-11-02 21:01] LABS: ALBUMIN 1.2 g/dL (3.4-5.0); CREATININE 3.1 mg/dL (0.6-1.3); MAGNESIUM 2.2 mg/dL (1.8-2.4); PHOSPHORUS* 6.2 mg/dL (2.5-4.9); POTASSIUM 5.3 mmol/L (3.5-5.1)
[2017-11-02 21:04] LABS: CALCIUM 5.9 mg/dL (8.5-10.1)
[2017-11-02 23:32] LABS: INR 1.3; PROTIME 12.8 Seconds (9.20-11.50)
[2017-11-03 00:33] LABS: HEMATOCRIT 24.4 % (37.0-47.0); HEMOGLOBIN 8.1 gm/dL (12.0-15.0); MCH 29.7 pg (26.0-34.0); MCHC 33.3 g/dL (28.0-37.0); MCV 89.1 fL (80.0-100.0); MPV 7.9 fl. (7.2-11.1); NUCLEATED RBCS 3 /100WBC; RBC 2.73 mil/uL (4.20-5.00); RDW-CV 16.3 % (10.5-14.5); WBC 17.5 thou/uL (4.0-11.0)
[2017-11-03 00:39] LABS: PLATELET COUNT* 145 thou/uL (150-400)
[2017-11-03 01:02] LABS: CALCIUM 6.5 mg/dL (8.5-10.1); CREATININE 2.7 mg/dL (0.6-1.3); MAGNESIUM 2.2 mg/dL (1.8-2.4); PHOSPHORUS* 5.6 mg/dL (2.5-4.9); POTASSIUM 5.4 mmol/L (3.5-5.1)
[2017-11-03 02:27] LABS: ABSOLUTE LYMPHOCYTES 1.4 thou/uL (0.8-5.3); ABSOLUTE MONOCYTES 0.7 thou/uL (0.0-1.2); ABSOLUTE NEUTROPHILS 15.4 thou/uL (1.6-8.1); ATYPICAL LYMPHS 1 %
[2017-11-03 02:28] LABS: ANISOCYTOSIS 1+; PLATELET ESTIMATE DECREASED; POIKILOCYTOSIS 2+
[2017-11-03 02:29] LABS: GIANT PLATELETS RARE; TOXIC GRANULATION 1+
[2017-11-03 02:30] LABS: BURR CELLS Occasional
[2017-11-03 02:37] VITALS: BP 84/49
[2017-11-03 03:23] LABS: INR 1.4; PROTIME 13.7 Seconds (9.20-11.50)
[2017-11-03 03:25] LABS: ALBUMIN 1.2 g/dL (3.4-5.0); CALCIUM 6.1 mg/dL (8.5-10.1); CREATININE 2.8 mg/dL (0.6-1.3); MAGNESIUM 2.3 mg/dL (1.8-2.4); PHOSPHORUS* 6.8 mg/dL (2.5-4.9); POTASSIUM 5.5 mmol/L (3.5-5.1); TOTAL BILIRUBIN 5.5 mg/dL (<0.1-1.0); TOTAL PROTEIN 3.6 g/dL (6.4-8.2)
[2017-11-03 03:31] LABS: HEMOGLOBIN 7.1 gm/dL (12.0-15.0); MPV 8.2 fl. (7.2-11.1)
[2017-11-03 03:33] LABS: HEMATOCRIT 21.8 % (37.0-47.0); MCH 29.4 pg (26.0-34.0); MCHC 32.4 g/dL (28.0-37.0); MCV 90.6 fL (80.0-100.0); RBC 2.4 mil/uL (4.20-5.00); RDW-CV 16.4 % (10.5-14.5); WBC 17.3 thou/uL (4.0-11.0)
[2017-11-03 03:42] LABS: CALCIUM 6.2 mg/dL (8.5-10.1); CREATININE 2.8 mg/dL (0.6-1.3); POTASSIUM 5.4 mmol/L (3.5-5.1)
[2017-11-05 13:07] LABS: HEPATITIS B SURFACE AG Negative (Negative)
--- NOTE | 2017-11-06 09:44 | CON ---
[address] [address] CONSULTATION Name: SAMI MARCELO Room: [address] IN M.R.#: [id number] Admission: 10/29/17 Attend Phys: Fide Palma Discharge: 11/03/17 Date of : 56 Report #: [id number] THIS REPORT FOR: //name// CC: MARYANA physician/PCP Seth Reveles DATE OF SERVICE: 10/30/2017 INPATIENT CONSULT REQUESTING PHYSICIAN: Bin Shelton MD. REASON FOR CONSULTATION: Hypotension. HISTORY OF PRESENT ILLNESS: The patient is a 57-year-old critically ill woman who was intubated this morning after developing respiratory failure. She initially presented with sepsis syndrome of a biliary etiology. We currently have required numerous pressure supports including Levophed and dopamine at maximal dosage to maintain systolic pressures greater than 100. She has had a prolonged hospitalization here for presentation with sepsis, SIRS syndrome and pneumonia, multiorgan system failure. She had developed end-stage renal disease and required dialysis. She was transferred to specialty select facility for further rehabilitation and we can set at [facility] and then her biliary drain became dislodged and she had come back to the hospital for replacement. PAST MEDICAL HISTORY: From a cardiovascular standpoint, past medical history is significant for atrial fibrillation with poorly controlled heart rates, chronic obstructive pulmonary disease, steroid dependent, morbid obesity. Ultimately, she required AV zay ablation and a permanent pacemaker, which was last interrogated in August, is by [email or web address] device. It was originally implanted September 2013. She had approximately 5 years of battery life at that time. She has a history of hypertension, degenerative joint disease, fibromyalgia, osteoarthritis. PAST SURGICAL HISTORY: AV zay ablation in 2012, pacemaker at the same time, , hysterectomy, knee surgery and the aforementioned biliary issues. FAMILY HISTORY: Positive for heart disease paternally and maternally. Mother had bypass in 2000. SOCIAL HISTORY: She is a former smoker, [place] [address] CONSULTATION Name: FOZIASAMI Fide Room: [address]#: [id number] Admission: 10/29/17 Attend Phys: Fide Palma Discharge: 11/03/17 Date of : 56 Report #: [id number] MEDICATIONS: Vancomycin, Solu-Medrol, IV titrated, dopamine as titrated. Etomidate was given. Versed and heparin, 150 mg of Lovenox subcutaneous b.i.d. ALLERGIES: SHE HAS ALLERGIES TO GABAPENTIN AND SULFA. REVIEW OF SYSTEMS: Not obtainable. The patient is intubated. PHYSICAL EXAMINATION: GENERAL: The patient is intubated and sedated. HEENT: ET tube is secured to the patient. NECK: There is no jugular venous distention. CARDIOVASCULAR: Regular. I cannot hear a murmur or rub. LUNGS: Diminished breath sounds bilaterally. ABDOMEN: Obese, nontender. EXTREMITIES: There is no peripheral edema. SKIN: Warm. She has SCDs. Her Telemetry reveals a paced rhythm. I cannot find an EKG. LABORATORY DATA: Her hemoglobin is 8.9, white blood count is 22, platelet count 344,000. Sodium 133, potassium 4.1, chloride is 96, CO2 is 18, BUN is 28, creatinine is 3.5. INR is 1.7. IMAGING: Chest x-ray today reveals heart size enlarged, but unchanged ET tube and NG tube in good position. Catheter is in good condition. Pacemaker is present. There is no pulmonary infiltrates. IMPRESSION: 1. Acute respiratory failure. This is multiple etiology related to chronic obstructive lung disease, sepsis and hypotension. She is presently sedated and intubated. 2. Sepsis syndrome. She is on broad spectrum antibiotics as directed by Infectious Disease colleagues and presently requires pressor support for her lower blood pressures. 3. Atrial fibrillation. This is chronic and previously she was anticoagulated and at some point, we will need to resume anticoagulation. 4. History of permanent pacemaker. She has normal device function as of August. <ELECTRONICALLY SIGNED> By: Simeon Aguilar MD, FACC 11/06/17 0944 1728 1946Simeon Aguilar MD, FACC /nt
--- NOTE | 2017-11-21 14:37 | CON ---
[address] [address] CONSULTATION Name: SAMI MARCELO Room: [address] IN ..#: [id number] Admission: 10/29/17 Attend Phys: Fide Palma Discharge: 11/03/17 Date of : 56 Report #: [id number] THIS REPORT FOR: //name// CC: MARYANA physician/PCP Seth Reveles DATE OF SERVICE: 11/02/2017 REQUESTING PHYSICIAN: Seth Reveles DO. REASON FOR CONSULTATION: Dialysis access placement, emergent dialysis needed. HISTORY OF PRESENT ILLNESS: The patient is intubated and sedated. History is obtained from the chart. She is septic. She has been in the hospital. She requires emergent dialysis. I have been asked to place a temporary dialysis catheter. The patient's INR this morning was 11. She has received vitamin K and FFP. At this point, she is optimized for dialysis catheter placement. She is morbidly obese, which will make catheter placement difficult. REVIEW OF SYSTEMS: A 12-point review of systems unobtainable due to patient's current status. PAST MEDICAL HISTORY: Significant for AFib, asthma, cellulitis, Clostridium difficile infection, pneumonia, elevated troponin, breast mass, lower extremity wounds, pelvic mass, renal failure, sepsis and UTI. PAST SURGICAL HISTORY: Significant for pacemaker placement, shoulder surgery, knee surgery, back surgery, C-sections, Port-A-Cath placement. ALLERGIES: INCLUDE PENICILLIN, GABAPENTIN, SULFA, PHENERGAN. MEDICATIONS: Please see chart. PHYSICAL EXAMINATION: GENERAL: The patient is intubated and sedated. She is afebrile. VITAL SIGNS: Blood pressure is 90/60. HEENT: Normocephalic, atraumatic. NECK: Supple. HEART: Regular. LUNGS: Coarse bilaterally. ABDOMEN: Soft. The patient is morbidly obese. EXTREMITIES: Ecchymotic, warm. NEUROLOGIC: [place] [address] CONSULTATION Name: SAMI MARCELO Room: [address]#: [id number] Admission: 10/29/17 Attend Phys: Fide Palma Discharge: 11/03/17 Date of : 56 Report #: [id number] ASSESSMENT: Morbidly obese septic patient in need of emergent dialysis. We will plan to place a femoral line given her coagulopathy and her size. <ELECTRONICALLY SIGNED> By: Mak Rivera DO 11/21/17 1437 1357 0029Flavio Oglesby MD /[place]
--- NOTE | 2017-11-21 14:37 | CON ---
[address] [address] CONSULTATION Name: SAMI MARCELO Room: [address] IN .R.#: [id number] Admission: 10/29/17 Attend Phys: Fide Palma Discharge: 11/03/17 Date of : 56 Report #: [id number] THIS REPORT FOR: //name// CC: MARYANA physician/PCP Seth Reveles DATE OF SERVICE: 11/02/2017 This is SAHIL Sylvester dictating in collaboration with Dr. Flavio Oglesby. REASON FOR CONSULTATION: Acute renal failure, dialysis catheter placement. HISTORY OF PRESENT ILLNESS: The patient is a 57-year-old female who is well known to our service. The patient was hospitalized here in August 2017, with complaints of weakness and lethargy, lower extremity swelling and pain. She was encephalopathic upon admission. She had a complicated prolonged hospital stay, was intubated for quite some time. She was apparently doing fairly well when she was discharged to a long-term acute care hospital at [facility]. She did have a cholecystectomy tube placed during her previous admission. At [facility], her cholecystectomy tube became displaced. She was ultimately sent back here to [facility] for that procedure. This admission, she ultimately required intubation due to sepsis, remains intubated on pressor support. Her renal function has continued to decline, creatinine is 3.7 today. We have been asked to evaluate the patient for placement of a temporary dialysis catheter for CRRT. PAST MEDICAL HISTORY: 1. Asthma. 2. C. diff colitis. 3. Cardiac arrhythmias. 4. Atrial fibrillation. 5. Cardiomyopathy. 6. Congestive heart failure. 7. Hyperlipidemia. 8. Familial Mediterranean fever. 9. Peripheral neuropathy. 10. Chronic venous stasis. 11. Avascular necrosis. PAST SURGICAL HISTORY: 1. Permanent pacemaker placement. 2. Fecal transplant. 3. Partial hysterectomy. 4. Left shoulder nerve surgery. 5. Bilateral knee surgery. 6. [place] [address] CONSULTATION Name: SAMI MARCELO Room: [address]#: [id number] Admission: 10/29/17 Attend Phys: Fide Palma Discharge: 11/03/17 Date of : 56 Report #: [id number] 7. Three sections. 8. Port-A-Cath placement in the right chest. 9. Ablation. SOCIAL HISTORY: She is a nonsmoker, no alcohol or illicit drug use. She is . FAMILY HISTORY: Noncontributory. ALLERGIES: 1. PENICILLIN. 2. GABAPENTIN. 3. SULFA. 4. PROMETHAZINE. HOME MEDICATIONS: 1. Dulcolax 5 mg daily as needed for constipation. 2. Brovana 15 mcg per inhalation twice daily. 3. Clonidine 0.1 mg transdermally daily. 4. Floranex 1 tablet twice daily. 5. Lovenox 150 mg subcutaneously twice daily. 6. Furosemide 80 mg IV daily. 7. Humalog insulin as directed. 8. Maxipime 2 mg IV twice daily. 9. Levsin 0.125 mg every 4 hours. 10. Prednisone 20 mg daily. 11. AccuNeb, albuterol solution 1.25 mg per 3 mL by inhalation 4 times daily. 12. Metamucil 6 mg twice daily. 13. Artificial tears as directed for dry eyes. 14. Carafate 1 gram before meals and at bedtime. 15. Benadryl 25 mg every 6 hours as needed for allergies or allergic reaction. 16. Drisdol 50,000 units as directed. 17. Protonix 20 mg daily. 18. Robitussin 400 mg every 4 hours. 19. Potassium chloride 20 mEq as needed for electrolyte replacement. 20. Mag-Ox 400 mg as needed for electrolyte replacement. 21. Singulair 10 mg daily. REVIEW OF SYSTEMS: A 12-point review of systems is unable to be obtained as she is currently intubated and sedated. PHYSICAL EXAMINATION: VITAL SIGNS: Temperature 37.1, heart rate 71, respiratory rate 29, and oxygen saturation 100% per ventilator. GENERAL: She is obese, intubated, sedated. HEENT: [place] [address] CONSULTATION Name: SAMI MARCELO Room: [address]#: [id number] Admission: 10/29/17 Attend Phys: Fide Palma Discharge: 11/03/17 Date of : 56 Report #: [id number] NECK: Supple. HEART: Regular rate and rhythm. CHEST: Coarse throughout, ventilator support, mild distress. ABDOMEN: Soft, hypoactive bowel signs. EXTREMITIES: She has dopplerable bilateral radial and pedal pulses. She has purple discoloration of bilateral lower extremities that is not involved with the feet. There are areas of fluid filled bullae involving the lower extremities as well as the abdomen. Significant edema to bilateral lower extremities. NEUROLOGIC: Unable to assess as she is currently intubated. LABORATORY DATA: Hemoglobin 8.3, hematocrit 26.1, white blood cell count 23.4, and platelets 56. Sodium 123, potassium 5.6, chloride 83, CO2 of 10, BUN 30, and creatinine 3.7. ASSESSMENT AND PLAN: 1. Acute renal failure in need of continuous renal replacement therapy, we will plan for placement of a temporary dialysis catheter at the bedside once her INR is less than 3. She has received vitamin K, fresh frozen plasma is currently ordered. 2. Septic shock with cholangitis. Continue antibiotics per infectious disease. Continue ICU efforts. 3. Atrial fibrillation. We thank you for the opportunity to participate in the care of the patient. Please feel free to contact our office with any questions or concerns. <ELECTRONICALLY SIGNED> By: Mak Rivera DO 11/21/17 1437 1048 [id number] Olivas /nt
== END 2017-11-03 03:30 | DRG 871 ==
LOC: M.ICU 10:36
PROVIDERS: Internal Medicine; Internal Medicine Gastroenterology; Internal Medicine Nephrology; Internal Medicine Pulmonary Disease; Radiology Diagnostic Radiology; ADMIT Internal Medicine
PROC: 0F9430Z Drainage of Gallbladder with Drainage Device, Percutaneous Approach (ICD-10-PCS; principal; 2017-10-29)
PROC: B544ZZA Ultrasonography of Left Jugular Veins, Guidance (ICD-10-PCS; principal; 2017-10-29)
PROC: 5A1945Z Respiratory Ventilation, 24-96 Consecutive Hours (ICD-10-PCS; principal; 2017-10-29)
PROC: 05HN33Z Insertion of Infusion Device into Left Internal Jugular Vein, Percutaneous Approach (ICD-10-PCS; principal; 2017-10-29)
PROC: 4A133B1 Monitoring of Arterial Pressure, Peripheral, Percutaneous Approach (ICD-10-PCS; 2017-10-30)
PROC: 03HY32Z Insertion of Monitoring Device into Upper Artery, Percutaneous Approach (ICD-10-PCS; 2017-10-30)
PROC: 4A133J1 Monitoring of Arterial Pulse, Peripheral, Percutaneous Approach (ICD-10-PCS; 2017-10-30)
PROC: 0BH17EZ Insertion of Endotracheal Airway into Trachea, Via Natural or Artificial Opening (ICD-10-PCS; 2017-10-30)
PROC: 06HM33Z Insertion of Infusion Device into Right Femoral Vein, Percutaneous Approach (ICD-10-PCS; 2017-11-02)
PROC: B54BZZA Ultrasonography of Right Lower Extremity Veins, Guidance (ICD-10-PCS; 2017-11-02)
PROC: 30233M1 Transfusion of Nonautologous Plasma Cryoprecipitate into Peripheral Vein, Percutaneous Approach (ICD-10-PCS; 2017-11-02)
PROC: 30233N1 Transfusion of Nonautologous Red Blood Cells into Peripheral Vein, Percutaneous Approach (ICD-10-PCS; 2017-11-02)
PROC: 30233R1 Transfusion of Nonautologous Platelets into Peripheral Vein, Percutaneous Approach (ICD-10-PCS; 2017-11-02)
DX: A41.9 Sepsis, unspecified organism (principal); R65.21 Severe sepsis with septic shock; J96.00 Acute respiratory failure, unspecified whether with hypoxia or hypercapnia; D65 Disseminated intravascular coagulation [defibrination syndrome]; J18.9 Pneumonia, unspecified organism; N17.9 Acute kidney failure, unspecified; I48.92 Unspecified atrial flutter; Z68.44 Body mass index [BMI] 60.0-69.9, adult; N39.0 Urinary tract infection, site not specified; I50.32 Chronic diastolic (congestive) heart failure; K80.00 Calculus of gallbladder with acute cholecystitis without obstruction; E44.0 Moderate protein-calorie malnutrition; L03.115 Cellulitis of right lower limb; L97.819 Non-pressure chronic ulcer of other part of right lower leg with unspecified severity; K80.30 Calculus of bile duct with cholangitis, unspecified, without obstruction; E78.5 Hyperlipidemia, unspecified; N63.20 Unspecified lump in the left breast, unspecified quadrant; I48.2 Chronic atrial fibrillation; D64.9 Anemia, unspecified; J44.9 Chronic obstructive pulmonary disease, unspecified; I11.0 Hypertensive heart disease with heart failure; M19.90 Unspecified osteoarthritis, unspecified site; M79.7 Fibromyalgia; G47.33 Obstructive sleep apnea (adult) (pediatric); E66.01 Morbid (severe) obesity due to excess calories; G62.9 Polyneuropathy, unspecified; Z95.0 Presence of cardiac pacemaker; Z79.51 Long term (current) use of inhaled steroids; Z79.899 Other long term (current) drug therapy; Z98.891 History of uterine scar from previous surgery; Z90.710 Acquired absence of both cervix and uterus; Z88.0 Allergy status to penicillin; Z88.2 Allergy status to sulfonamides; Z88.8 Allergy status to other drugs, medicaments and biological substances; Z82.49 Family history of ischemic heart disease and other diseases of the circulatory system